=== PATIENT | female | born 1975 | race Caucasian/White ===

== ENCOUNTER → 2018-01-13 14:22 | Outpatient (CLI) | payer BC, MEDICAID, SELFPAY ==
[2018-01-13 14:54] LABS: Basophils % 0.6 % (0.1-2.0); Eosinophils # 0.1 K/mm3 (0.0-0.4); Eosinophils % 1.6 % (0.1-12.0); Hematocrit 41.1 % (37.0-47.0); Hemoglobin 13.1 g/dL (12.2-16.2); Lymphocytes # 2.9 K/mm3 (0.7-4.5); Lymphocytes % 37.5 K/mm3 (10-50); Mean Corpuscular HGB Conc 31.8 g/dL (31.8-35.4); Mean Corpuscular Hemoglobin 27.8 pg (27.0-31.2); Mean Corpuscular Volume 87.4 fl (81-99); Mean Platelet Volume 7.7 fl (7.4-10.4); Monocytes # 0.4 K/mm3 (0.1-1.0); Monocytes % 5.3 % (1.7-9.3); Neutrophils # 4.2 K/mm3 (1.8-7.8); Neutrophils % 54.9 % (37.0-80.0); Platelet Count 350 K/mm3 (142-424); Red Cell Distribution Width 13.7 % (11.5-17.5); White Blood Count 7.6 K/mm3 (4.8-10.8)
[2018-01-13 16:10] LABS: Anion Gap 11.3 mEq/L (5-15); Blood Urea Nitrogen 10 mg/dL (7-18); Carbon Dioxide 29 mmol/L (21.0-32.0); Chloride 102 mmol/L (98-107); Creatinine,Serum 0.89 mg/dL (0.55-1.02); Estimated Glomerular Filt Rate 69 ml/min (>60); Free Thyroxine Index 2.9 ug/dL (5.93-13.13); GFR (African American) 83 ML/MIN (>60); Glucose 76 mg/dL (74-106); Potassium 4.3 mmoL/L (3.5-5.1); Sodium 138 mmol/L (136-145); T4 (Thyroxine) 9.1 ug/dl (4.7-13.3); Thyroid Stimulating Hormone 2.51 uIU/ml (0.358-3.740); Triiodothryronine (T3) Uptake 32 % (31-39)
== END ==
PROVIDERS: Family Provider Family Medicine; PCP Family Medicine; Visit Provider Nurse Practitioner Obstetrics & Gynecology
DX: R53.83 Other fatigue (principal)
CPT/HCPCS: 36415; 80048; 84436; 84443; 84479; 85025

== ENCOUNTER → 2018-01-21 12:37 | Outpatient (CLI) | payer MEDICAID, SELFPAY ==
--- NOTE | 2018-01-21 12:44 | MM_ITS ---
MM Dig mamm DX unilat RT CAD, US breast RT complete COMPARISON: 10/22/2017 mammogram and ultrasound INDICATION: Follow-up abnormal mammogram ORDERING PHYSICIAN: Ashu Kent MD PATIENT AGE: 42 years TECHNIQUE: Standard images performed along with spot compression views, rolled views, and right breast ultrasound. There are 2 markers placed in the right breast one centrally and superiorly and one medially and superiorly . FINDINGS: On the cc view there are 2 persistent nodular opacities in the right breast 1 centrally at 4 mm approximately 8 cm deep to the nipple and 1 slightly medial at 6 mm approximate 8 centimeters deep to the nipple. These are not significantly changed and only seen on the cc view and not on the breast ultrasound. These have a probably benign appearance. Continued 6 month follow-up is recommended Right breast ultrasound: No masses. No solid or cystic lesions apparent. Specifically, ultrasound performed of the palpable abnormality showing no sonographic abnormality. IMPRESSION: Probably benign findings. No convincing evidence of malignancy with no significant change BI-RADS Category: 3 Benign Finding Short Term Follow-up RECOMMENDED FOLLOW-UP: 6M - 6 MONTH FOLLOW-UP Negative ultrasound negative mammogram does not exclude the possibility of malignancy. Any palpable nodule should be managed on clinical basis. (A letter has been sent to the patient regarding results of the study.)
== END ==
PROVIDERS: Family Provider Family Medicine; PCP Family Medicine; Visit Provider Family Medicine
DX: R92.8 Other abnormal and inconclusive findings on diagnostic imaging of breast (principal)
CPT/HCPCS: 76641; 77065

== ENCOUNTER → 2018-01-23 12:49 | Outpatient (CLI) | payer MEDICAID, SELFPAY ==
--- NOTE | 2018-01-23 12:51 | US_ITS ---
US transvaginal Ordering Physician: Gerson Choudhury MD Patient Age: 42 years: Female HISTORY: ITS.REASON: dyspareunia, pelvic paindyspareunia area TECHNIQUE: Pelvic pain transvaginal pelvic ultrasound bh COMPARISON :No previous relevant studies for comparison there is a CT abdomen pelvis from 2012 available and utilized. FINDINGS The uterus. Measures 8.8 seem in length as 5.1 cm x 7.3 cm wide. A generous appearance of the uterus. A question possible fibroid anterior myometrium, a submucosal. Endometrial stripe measures 9.2 mm-slightly thickened, slightly generous. Right ovary: A difficult to visualize and is seen with transabdominal and imaging 2.6 x 2.6 and 2.5 cm.. Left ovary. Not seen . No fluid in cul-de-sac. =====IMPRESSION========= Previous CT from 2012 shows generous peripheral to the uterus and moderate endometrial stripe is well. IMPRESSION generous volume uterus. Generous girth uterus. Question possible fibroid anterior myometrium 2.3 seem in length x 1.2 cm.. Submucosal. . slightly generous, slightly thickened endometrial stripe measuring up to 9 mm AP
== END ==
PROVIDERS: Family Provider Family Medicine; PCP Family Medicine; Visit Provider Nurse Practitioner Obstetrics & Gynecology
DX: R10.2 Pelvic and perineal pain (principal)
CPT/HCPCS: 76830; 76856

== ENCOUNTER → 2021-09-21 07:39 | Outpatient (CLI) | payer OTHER, SELFPAY ==
--- NOTE | 2021-09-21 07:41 | CA_ITS ---
APPROVED REPORT Seamless Hosiery Knitter: Anel Nevarez RVT Study Quality: Good Indications: htn Risk Factors Hypertension Obesity Smoking Renal Artery Doppler Origin (R) 151.7/ cm/sec Proximal (R) 161.8/ cm/sec Mid (R) 187.8/ cm/sec Distal (R) 183.5/ cm/sec Renal Aorta Ratio (R) 1.44 Segmental A. (R) 38.1/13.5 cm/sec RI: 0.64 Segmental A. Sup (R) 30.7/12.7 cm/sec Segmental A. Mid (R) 38.1/13.5 cm/sec Segmental A. Inf (R) 29.2/8.2 cm/sec Origin (L) 109.8/ cm/sec Proximal (L) 108.4/ cm/sec Mid (L) 167.5/ cm/sec Distal (L) 223.9/ cm/sec Renal Aorta Ratio (L) 1.72 Segmental A. (L) 61.5/25.2 cm/sec RI: 0.59 Segmental A. Sup (L) 51.3/16.8 cm/sec Segmental A. Mid (L) 61.5/25.2 cm/sec Segmental A. Inf (L) 38.2/14.9 cm/sec Renal Measurements Kidney Size (R) 12.3x8.6 cm Cortical Thickness (R) 2.0 cm Kidney Size (L) 11.8x7.1 cm Cortical Thickness (L) 1.8 cm Findings Study suggests less than 60% stenosis of the bilateral renal arteries. Left non-obstructing nephrolithiasis. Conclusion Study suggests less than 60% stenosis of the bilateral renal arteries. Left non-obstructing nephrolithiasis. Electronically signed by : Meet Charles MD 09/21/2021 15:35:52
[2021-09-21 08:46] LABS: Basophils # 0.1 K/mm3 (0-0.2); Eosinophils # 0.1 K/mm3 (0.0-0.4); Eosinophils % 1.5 % (0.1-12.0); Hematocrit 51.8 % (37.0-47.0); Hemoglobin 16.4 g/dL (12.2-16.2); Lymphocytes # 2.4 K/mm3 (0.7-4.5); Lymphocytes % 27.3 % (10-50); Mean Corpuscular HGB Conc 31.7 g/dL (31.8-35.4); Mean Corpuscular Hemoglobin 30.5 pg (27.0-31.2); Mean Corpuscular Volume 96.3 fl (81-99); Mean Platelet Volume 8.2 fl (7.4-10.4); Monocytes # 0.4 K/mm3 (0.1-1.0); Monocytes % 4.9 % (1.7-9.3); Neutrophils # 5.7 K/mm3 (1.8-7.8); Neutrophils % 65.3 % (37.0-80.0); Platelet Count 355 K/mm3 (142-424); Red Blood Count 5.38 M/mm3 (4.20-5.40); White Blood Count 8.7 K/mm3 (4.8-10.8)
[2021-09-21 09:27] LABS: Chloride 101 mmol/L (98-107); Potassium 4.6 mmoL/L (3.5-5.1); Sodium 140 mmol/L (136-145)
[2021-09-21 09:29] LABS: Bilirubin,Unconjugated 0.4 mg/dL (0.0-1.1); Blood Urea Nitrogen 16 mg/dl (7-17); Estimated Glomerular Filt Rate 77 ml/min (>60); GFR (African American) 93 ML/MIN (>60)
[2021-09-21 09:30] LABS: Alanine Aminotransferase 39 U/L (12-78); Albumin Level 4.1 g/dl (3.5-5.0); Alkaline Phosphatase 57 U/L (38-126); Anion Gap 12.6 mEq/L (5-15); Aspartate Amino Transferase 31 U/L (14-36); Bilirubin,Direct 0.4 mg/dl (0.0-0.4); Bilirubin,Indirect 0.4 mg/dL (0.0-0.9); Bilirubin,Total 0.8 mg/dl (0.2-1.3); Calcium 9.6 mg/dl (8.4-10.2); Carbon Dioxide 31 mmol/L (22.0-30.0); Chol/HDL Ratio 4.4 (1-3.5); Cholesterol 191 mg/dl (140-200); Glucose 126 mg/dl (74-100); HDL Cholesterol 43 mg/dl (40-60); Total Protein,Serum 6.7 g/dl (6.3-8.2); Triglycerides 191 mg/dl (30-150); VLDL Cholesterol 38 mg/dL (0-40)
[2021-09-21 09:41] LABS: Direct LDL Cholesterol 125.92 mg/dL (100-129)
[2021-09-21 09:47] LABS: Free T4 (Free Thyroxine) 1.06 ng/dl (0.78-2.19)
[2021-09-21 10:01] LABS: Thyroid Stimulating Hormone 3.48 uIU/mL (0.465-4.68)
== END ==
PROVIDERS: Visit Provider Nurse Practitioner Family
DX: R07.9 Chest pain, unspecified (principal); R06.00 Dyspnea, unspecified; R42 Dizziness and giddiness; I20.8 Other forms of angina pectoris; I10 Essential (primary) hypertension; R53.83 Other fatigue; R06.83 Snoring; R40.0 Somnolence; R60.0 Localized edema; R94.31 Abnormal electrocardiogram [ECG] [EKG]; E66.9 Obesity, unspecified; Z68.42 Body mass index [BMI] 45.0-49.9, adult
CPT/HCPCS: 36415; 80048; 80061; 80076; 84439; 84443; 85025; 93976

== ENCOUNTER → 2021-09-24 07:20 | Outpatient (CLI) | payer OTHER, SELFPAY ==
--- NOTE | 2021-09-24 | CA_ITS ---
APPROVED REPORT Exam: Pharmacologic Technologist: malcolm arevalo, Ht: 5 ft 2 in Wt: 255 lbs BSA: 2.12 m2 Indications: SOA, CP Medical History Medications: Omeprazole,,,,, Metoprolol,,,,, Albuterol,,,,, Lisinopri/HCTZ,,,,, Mirena,,,,, OxYbutynyn,,,,, Allergies: PCN, Peppeer, Oxycodone Cardiac Risk Factors: HTN, Smoking Stress Test Details Test: LEXISCAN HR Resting HR: 84 bpm Max Heart Rate (APMHR): 172.951859 bpm Max HR Achieved: 110 bpm Target HR (85% APMHR): 146.946825 bpm % of APMHR: 63.95 Recovery HR: 90 bpm BP Resting BP: 149/87 mmHg Max BP: 149/87 mmHg Recovery BP: 138.0/76.0 mmHg ECG Resting ECG: Sinus Rhythm Clinical Exercise duration: 04:13 min Highest Stage Achieved: Exercise capacity: 1.0 METs Stress ECG Conclusion Lexiscan portion completed. Patient no complaints of chest pain. Shortness of breath at peak infusion which resolved during recovery. Occasional PVC. Less than 1.5mm ST depression. Images to follow. Electronically signed by : Damion Sanches MD 09/25/2021 06:50:40
--- NOTE | 2021-09-24 07:22 | NM_ITS ---
APPROVED REPORT Exam: Nuclear Stress Test Indication: Chest pain, SOB, Palpitations, Fatigue, HTN, Tobacco use, Family history, Dizziness Patient Location: Outpatient Stress Tech: Apurva Knight PA Tech:Katt Jett, ARRT, RT (R)(N) Ht: 5 ft 2 in Wt: 255 lbs Bra Size: 42C HR: 82 bpm BP: 149/87 mmHg BSA: 2.12 m2 BMI: 46.6 History: Chest pain, SOB, Palpitations, Fatigue, HTN, Tobacco use, Family history, Dizziness Procedure: Patient received a 0.4 mg of intravenous Lexiscan, resting heart rate 82 bpm, resting blood pressure 149/87 mmHg, with Lexiscan maximum heart rate achived was 100 bpm which is Less than 85 % of the maximum predicted heart rate and blood pressure was 129/79 mmHg. With Lexiscan, patient denied any complaint of chest pain. Electrocardiogram Resting electrocardiogram shows sinus rhythm, with Lexiscan there is less than 1.[address] segment depression noted from the baseline EKG. The EKG portion of the Lexiscan is nondiagnostic. Cardiac Stress and Resting SPECT Images: Cardiac Stress and Resting SPECT images were obtained using technetium 99m Myoview 30.7 mCi stress and 10.44 mCi at rest. Gated SPECT for analysis of segmental wall motion and calculation of ejection fraction also done. Prone images were also obtained. Cardiac stress and rest SPECT images show uniform myocardial activity without segmental perfusion abnormality, computer derived ejection fraction is 54% with no regional wall motion abnormality, right ventricle is normal size and contractility. Conclusion: 1. The EKG portion of the Lexiscan is nondiagnostic. 2. No scintigraphic evidence of reversible ischemia seen, computer derived ejection fraction is 54% with no regional wall motion abnormality, right ventricle is normal size and contractility. 3. Normal Lexiscan Myoview study. Electronically signed by : Damion Sanches MD 09/25/2021 06:57:32
--- NOTE | 2021-09-24 07:49 | CA_ITS ---
APPROVED REPORT EXAM: Comprehensive 2D, Doppler, and color-flow Echocardiogram Motorcoach Driver: TRISTEN Jimenez, RVS Ht: 5 ft 2 in Wt: 255lbs BSA: 2.12 BP: 157/93 mmHg Indications: CP, Smoker, HTN, COPD, Edema, Obesity, Fatigue Echo Enhancing Agent Comments: Poor Acoustic windows throughout exam due to Large body habitus with lung impedence 2D Dimensions Aortic Root 2.51 cm LA Volume 31.90 mL Left Atrium 3.43 cm LA Volume Index 15.529252 mL/m2 (M/F) 16-34 LVOT 2.16 cm (M/F) 1.5-2.5 M-Mode Dimensions RVDd 2.63 cm (0.9-2.6) LA Diam 3.93 cm (1.9-4.0) LVDd 4.61 cm (3.5-5.7) Ao Diam 3.05 cm (2.0-3.7) LVDs 2.59 cm (3.5-5.7) IVSd 1.18 cm (0.6-1.1) PWd 0.95 cm (0.6-1.1) EF (Teich) 75.10% EPSs 1.52 cm FS 43.80% EDV (Teich) 97.80 mL TAPSE 1.79 (<1.7) ESV (Teich) 24.40 mL LV Diastology E Decel Time 213.00 (160-240 msec) E/A Ratio 0.87 MED E' 6.20 (< 7 cm/sec) MED A' 9.80 cm/s E'/MED E' Ratio 14.68 (>14) LAT E' 6.60 (<10 cm/sec) LAT A' 8.10 cm/s E/LAT E' Ratio 13.79 (>14) Aortic Valve LVOT Max 103.00 (70-110 cm/s) LVOT VTI 20.33 cm AoV Peak Carlos. 145.00 (50-130 cm/s) AI PHT 401.00 ms AO Peak GR. 8.40 mmHg AO Mean GR. 4.10 (<5 mmHg) AO VTI 26.78 (18-25 cm) JOHN (VTI) 2.78 (2.5-4.5 cm2) Mitral Valve MV A Velocity 105.00 (40-130 cm/s) E/A Ratio 0.87 MV Decel. Time 213.00 (160-240 ms) Tricuspid Valve TR P. Velocity 139.00 cm/s RAP Estimate 10.00 mmHg RVSP 17.80 mmHg Left Ventricle Left atrium is mildly enlarged, left ventricle is normal size, mild concentric left ventricular hypertrophy, visually estimated ejection fraction 55% with no regional wall motion abnormality, grade 1 diastolic dysfunction seen without tissue Doppler evidence of raise left atrial pressure. Right Ventricle Right atrium and right ventricle are normal size and contractility. Aortic Valve Aortic valve is minimally thickened and fibrosed, there is no aortic stenosis or aortic insufficiency. Mitral Valve Mitral valve grossly normal, there is trace mitral regurgitation. Tricuspid Valve Tricuspid valve grossly normal, there is trace tricuspid regurgitation, tricuspid regurgitation jet velocity is inadequate for calculation of the right ventricular systolic pressure. Pulmonic Valve Pulmonic valve is poorly visualized. Great Vessels Aortic root is normal size. Inferior vena cava is normal size with normal inspiratory collapse. Pericardium No significant pericardial effusion noted. Conclusion 1. Mildly enlarged left atrium, normal left ventricular size, mild concentric left ventricular hypertrophy, visually estimated ejection fraction 55% with no regional wall motion abnormality, grade 1 diastolic dysfunction seen without tissue Doppler evidence of raise left atrial pressure. 2. Trace mitral and tricuspid regurgitation. 3. No significant pericardial effusion Electronically signed by : Damion Sanches MD 09/25/2021 06:13:38
--- NOTE | 2021-09-24 08:42 | HMH.ITSHM ---
Current Home Medications as stated by this patient Dayna Ulloa or c s s representative. []OXYBUTYNIN OMEPRAZOLE METOPROLOL LISINOPRIL LEVONORGESTREL ALBUTEROL
== END ==
PROVIDERS: PCP Family Medicine; Visit Provider Nurse Practitioner Family
DX: R06.00 Dyspnea, unspecified (principal); R07.9 Chest pain, unspecified; I20.8 Other forms of angina pectoris; R42 Dizziness and giddiness; R94.31 Abnormal electrocardiogram [ECG] [EKG]; R60.0 Localized edema; I10 Essential (primary) hypertension; E66.9 Obesity, unspecified; R06.83 Snoring; R40.0 Somnolence; R53.83 Other fatigue; Z68.42 Body mass index [BMI] 45.0-49.9, adult
CPT/HCPCS: 78452; 93017; 93306; A9502; J2785

== ENCOUNTER → 2021-10-09 10:14 | Outpatient (CLI) | payer OTHER, SELFPAY ==
--- NOTE | 2021-10-09 10:14 | CT_ITS ---
PROCEDURE: CT ANGIO CHEST PE PROTOCOL CLINCIAL INDICATION: sob COMPARISON: No exams were available for comparison TECHNIQUE: IV Contrast: 70ML Isovue 370 Axial images obtained with sagittal and coronal reformats. All CT scans at the facility use one or more dose reduction, viz: automated exposure control, ma/kV adjustment per patient size (including targeted exams where dose is matched to indication, i.e. head), or iterative reconstruction technique. FINDINGS: HEART AND MEDIASTINAL STRUCTURES: No evidence of pulmonary embolus, aortic aneurysm, or aortic dissection. There are few scattered small mediastinal lymph nodes. The coronary artery calcifications and/or stents noted. There is mild ectasia of the ascending thoracic aorta at 3.6 cm. LUNGS AND PLEURAL SPACES: 4 mm noncalcified nodule right middle lobe. No lobar consolidation or collapse. No effusions. BONY STRUCTURES: Degenerative changes thoracic spine. UPPER ABDOMEN: Mild hepatomegaly measuring up to 24 cm in AP dimension. Gallbladder appears slightly distended. Mild prominence of the adrenal glands maintaining an adrenal form shape. ADDITIONAL FINDINGS: No other significant abnormalities. IMPRESSION: No acute finding. No evidence of pulmonary embolus. Nonacute findings as detailed above Dictated by: Meet Charles MD 10/10/2021 12:17 Meet Charles MD in [place] 10/10/2021 12:17
== END ==
PROVIDERS: Visit Provider Nurse Practitioner Family
DX: R06.00 Dyspnea, unspecified (principal); G47.33 Obstructive sleep apnea (adult) (pediatric); R42 Dizziness and giddiness; R06.83 Snoring; R40.0 Somnolence; R53.83 Other fatigue; R60.0 Localized edema
CPT/HCPCS: 71275; 95806; Q9967

== ENCOUNTER → 2021-10-30 09:11 | Outpatient (CLI) | payer OTHER, SELFPAY ==
--- NOTE | 2021-10-30 09:14 | US_ITS ---
PROCEDURE: US THYROID CLINICAL INDICATION: choking on food, voice changes. COMPARISON: No exams were available for comparison FINDINGS: Right lobe: 3.8 x 1.1 x 1.4 cm Left lobe: 3.8 x 1.7 x 3.8 cm Isthmus: 0.5 cm Additional findings: No nodules identified. Homogeneous thyroid echogenicity. IMPRESSION: Minimal prominence of the isthmus. No nodules apparent, otherwise unremarkable thyroid ultrasound Dictated by: Meet Charles MD 10/30/2021 17:36 Meet Charles MD in [place] 10/30/2021 17:36
== END ==
PROVIDERS: PCP Physician Assistant; Visit Provider Physician Assistant
DX: R06.02 Shortness of breath (principal); R49.9 Unspecified voice and resonance disorder; R13.10 Dysphagia, unspecified; I20.8 Other forms of angina pectoris; I10 Essential (primary) hypertension; R60.0 Localized edema; E66.01 Morbid (severe) obesity due to excess calories; G47.33 Obstructive sleep apnea (adult) (pediatric); R94.31 Abnormal electrocardiogram [ECG] [EKG]; Z82.49 Family history of ischemic heart disease and other diseases of the circulatory system; Z68.42 Body mass index [BMI] 45.0-49.9, adult
CPT/HCPCS: 76536

== ENCOUNTER → 2021-11-12 08:44 | Outpatient (CLI) | payer OTHER, SELFPAY ==
[2021-11-12 09:03] LABS: Basophils # 0.1 K/mm3 (0-0.2); Basophils % 1.2 % (0.1-2.0); Eosinophils # 0.2 K/mm3 (0.0-0.4); Eosinophils % 1.9 % (0.1-12.0); Hematocrit 49.9 % (37.0-47.0); Hemoglobin 16.3 g/dL (12.2-16.2); Lymphocytes % 36.2 % (10-50); Mean Corpuscular HGB Conc 32.6 g/dL (31.8-35.4); Mean Corpuscular Hemoglobin 30.7 pg (27.0-31.2); Mean Corpuscular Volume 94.2 fl (81-99); Mean Platelet Volume 8.2 fl (7.4-10.4); Monocytes # 0.5 K/mm3 (0.1-1.0); Monocytes % 6.1 % (1.7-9.3); Neutrophils # 4.6 K/mm3 (1.8-7.8); Neutrophils % 54.6 % (37.0-80.0); Platelet Count 375 K/mm3 (142-424); Red Cell Distribution Width 13.2 % (11.5-17.5); White Blood Count 8.4 K/mm3 (4.8-10.8)
[2021-11-12 09:52] LABS: Chloride 100 mmol/L (98-107); Potassium 4.4 mmoL/L (3.5-5.1); Sodium 138 mmol/L (136-145)
[2021-11-12 09:55] LABS: Anion Gap 12.4 mEq/L (5-15); Blood Urea Nitrogen 14 mg/dl (7-17); Calcium 9.3 mg/dl (8.4-10.2); Carbon Dioxide 30 mmol/L (22.0-30.0); Estimated Glomerular Filt Rate 77 ml/min (>60); GFR (African American) 93 ML/MIN (>60); Glucose 135 mg/dl (74-100)
== END ==
PROVIDERS: Visit Provider Physician Assistant
DX: Z01.812 Encounter for preprocedural laboratory examination (principal); U07.1 COVID-19; I20.8 Other forms of angina pectoris; I10 Essential (primary) hypertension; R06.00 Dyspnea, unspecified; R60.0 Localized edema; R94.31 Abnormal electrocardiogram [ECG] [EKG]; Z82.49 Family history of ischemic heart disease and other diseases of the circulatory system
CPT/HCPCS: 36415; 80048; 85025; C9803; U0003; U0005

== ENCOUNTER 2021-11-22 08:30 | Day surgery (SDC) | payer OTHER, SELFPAY ==
[2021-11-22] VITALS (14 sets, daily range): BP systolic 109–145; BP diastolic 56–85; PULSE 72–85; RESP 16–20; TEMP 36.9; O2SAT 93–98; BMI 46.6
--- NOTE | 2021-11-22 07:12 | IR_ITS ---
" APPROVED REPORT Patient Location: Outpatient Pharmacist Aide: ABIOLA Ramos RT (R) PROCEDURES Left heart catheterization Left ventriculogram Selective coronary angiogram Drug-eluting stent deployment to the proximal mid dominant right coronary INDICATION Coronary artery disease, Angina pectoris, High risk ulcerated necrotic plaque within the mid dominant right coronary, Informed consent was obtained prior to the procedure. COMPLICATIONS None Estimated Blood Loss: Less than 10 mls TECHNIQUE One percent lidocaine used to anesthetize the right anterior aspect of the wrist. The right radial artery was accessed via the Seldinger technique. A 6 Arabic sheath was placed in the right radial artery. 2.5 mg of verapamil, 800 mcg of nitroglycerin, 1mg Lidocaine and 5000 U Heparin were given through the arterial sheath. The [employer] catheter was also used to perform left heart catheterization, left ventriculogram and selective coronary angiogram. At the end of the diagnostic angiogram therapeutic heparin was administered giving a therapeutic ACT and the guide catheter was left in the right coronary artery where a Choice PT extra-support wire was placed distally. A 3.5 x 38 mm resolute Martinez stent was deployed at 20 bobo reducing the high risk ulcerated necrotic plaque to 0%. ZAIRA-3 flow was present before and after the procedure. At the end of the procedure the apparatus was removed the sheath was removed good hemostasis was achieved using TR banding patient was transferred to the postop putting in stable condition ANGIOGRAPHIC RESULTS The left main artery Normal The left anterior descending artery Has mild proximal 20% calcification The circumflex artery Is nondominant has a proximal smooth 30 to 40% eccentric stenosis The right coronary artery Is a dominant vessel with diffuse proximal and mid vessel 30% stenoses. Within the mid segment is a large ulcerated necrotic plaque within the stenotic area of approximately 70% The BOLTON ventriculogram reveals Normal 65% The left ventricular end-diastolic pressure 20 mmHg IMPRESSION High risk unstable necrotic ulcerated plaque within the mid dominant right coronary artery Successful stenting of the proximal to mid right coronary artery high risk disease reduced to 0% with 1 drug-eluting stent Normal ejection fraction Elevated LVEDP PLAN 1. Brilinta 90 twice daily plus aspirin 81 mg daily 2. LDL less than 55 to be achieved with high intensity statin 3. Better control of diabetes 4. Risk factor modification 5. Exercise weight loss 6. Immediate avoidance of all tobacco products 7. Cardiac rehabilitation Electronically signed by : Rufino Elizabeth MD 11/22/2021 11:04:23"
[2021-11-22 09:18] LABS: MANUAL DIFFERENTIAL MANUAL DIFFERENTIAL (MANUAL DIFF)
[2021-11-22 09:20] LABS: Coronavirus 19, PCR Not Detected (NotDetected); Influenza A, PCR Not Detected (NotDetected); Influenza B, PCR Not Detected (NotDetected)
[2021-11-22 09:20] LABS: Basophils # 0.1 K/mm3 (0-0.2); Basophils % 1.3 % (0.1-2.0); Eosinophils # 0.3 K/mm3 (0.0-0.4); Eosinophils % 2.3 % (0.1-12.0); Hematocrit 50.1 % (37.0-47.0); Hemoglobin 16.2 g/dL (12.2-16.2); Lymphocytes # 2.4 K/mm3 (0.7-4.5); Lymphocytes % 22.2 % (10-50); Mean Corpuscular HGB Conc 32.4 g/dL (31.8-35.4); Mean Corpuscular Hemoglobin 30.8 pg (27.0-31.2); Mean Corpuscular Volume 95.2 fl (81-99); Mean Platelet Volume 8.2 fl (7.4-10.4); Monocytes # 0.6 K/mm3 (0.1-1.0); Monocytes % 5.5 % (1.7-9.3); Neutrophils # 7.5 K/mm3 (1.8-7.8); Neutrophils % 68.7 % (37.0-80.0); Platelet Count 413 K/mm3 (142-424); Red Blood Count 5.27 M/mm3 (4.20-5.40); Red Cell Distribution Width 13.2 % (11.5-17.5); White Blood Count 10.9 K/mm3 (4.8-10.8)
[2021-11-22 09:33] LABS: Anion Gap 10.9 mEq/L (5-15); Blood Urea Nitrogen 12 mg/dl (7-17); Calcium 9.3 mg/dl (8.4-10.2); Carbon Dioxide 27 mmol/L (22.0-30.0); Chloride 100 mmol/L (98-107); Creatinine Clearance Estimated 60 mL/min (50-200); Estimated Glomerular Filt Rate 67 ml/min (>60); GFR (African American) 81 ML/MIN (>60); Glucose 141 mg/dl (74-100); Potassium 3.9 mmoL/L (3.5-5.1); Sodium 134 mmol/L (136-145)
[2021-11-22 09:49] LABS: HCG Qualitative, Serum Negative (Negative)
[2021-11-22 10:06] LABS: Eosinophils % 1 % (0-3); Lymphocytes % 30 % (10-50); Monocytes % 3 % (2-9); Neutrophils % 66 % (42-76); Platelet Estimate Normal; Total Cells Counted 100
[2021-11-22 10:07] LABS: RBC Morphology Normal
--- NOTE | 2021-11-22 14:34 | HMH.PHACLD ---
Dayna Ulloa has received discharge medication counseling on the following medications: PATIENT IS CURRENTLY TAKING ATORVASTATIN 40 MG DAILY, LISINOPRIL HCTZ 20/25 MG DAILY, ASPIRIN DR 81 MG DAILY, AND METOPROLOL SUCCINATE 50 MG BID. STARTING BRILINTA 90 MG BID.
[2021-11-22 14:39] LABS: CATHL Activated Clotting Time 290 SEC (74-125)
== END 2021-11-22 14:30 ==
LOC: CATHLAB 08:31
PROVIDERS: Visit Provider Internal Medicine
DX: R07.9 Chest pain, unspecified (principal); E66.01 Morbid (severe) obesity due to excess calories; G47.33 Obstructive sleep apnea (adult) (pediatric); I10 Essential (primary) hypertension; I25.110 Atherosclerotic heart disease of native coronary artery with unstable angina pectoris; R94.31 Abnormal electrocardiogram [ECG] [EKG]; Z82.49 Family history of ischemic heart disease and other diseases of the circulatory system; Z68.42 Body mass index [BMI] 45.0-49.9, adult; F17.210 Nicotine dependence, cigarettes, uncomplicated
CPT/HCPCS: 80048; 84703; 85007; 85014; 85018; 85048; 85049; 85347; 92928; 93458; 99152; C1725; C1760; C1769; C1876; C9600; C9803; J1644; Q9967; U0003; U0005

== ENCOUNTER → 2021-11-26 12:34 | Outpatient (CLI) | payer OTHER, SELFPAY ==
--- NOTE | 2021-11-26 12:34 | FL_ITS ---
FINAL REPORT CLINICAL HISTORY: dysphagia; modified barium swallow FINDINGS: MODIFIED BARIUM SWALLOW History: Dysphagia. FINDINGS: Fluoroscopy was provided for the speech pathologist to evaluate the swallowing mechanism. The patient was given several different consistencies of barium while the swallow was visualized fluoroscopically. The report of the speech pathologist should be consulted prior to making dietary decisions. FLUOROSCOPY TIME: 2 minutes 17 seconds. 14 fluoroscopic spot runs were obtained. IMPRESSION: Modified barium swallow under fluoroscopic guidance. Please see the report of the speech pathologist for more detail. Reviewed, Interpreted and Dictated by Davide Ca III, MD Transcribed by JYOTHI Velásquez Authenticated by Davide Ca III, MD on 11/28/2021 09:56:[address] [facility]
--- NOTE | 2021-11-26 13:53 | HMH.SLMBS2 ---
Speech & Language Evaluation Speech/Language Mod Barium Swallow Start: 11/26/21 13:39 Freq: once Status: Complete Protocol: Document 11/26/21 13:39 MAXWELL (Rec: 11/26/21 13:53 MAXWELL [id number]) General Information General Current Food Consistancy Regular,Thin Liquids Dentition Poor Dentition Oxygen Status Room Air Facial Symmetry Symmetrical Patient Orientation Person,Place,Time,Situation Ability to Follow Directions Excellent Communication Ability No Impairment MBS Recommendations Diet Dietary Recommendations Regular,Thin Liquids Treatment/Strategies Treatment Recommendation Compens. Strategy Educat. Strategy/Precaution Recommend Sitting Upright (90 deg),Small Bites and Sips Mod Barium Swallow Impressions Summary and Impressions Oral Phase Impression Minimal Impairment Oral Phase Summary minimal difficulty with mastication secondary to poor dentition. Pharyngeal Phase Impression No Impairment (WFL) Speech/Language MBS Assessment/Goals/Plan Assessment Date of Evaluation: 11/26/21 Evaluation Type Initial Certification Assessment/Problems Patient reports choking sensation for approximately one year. PMH includes Baer's Palsy and high blood pressure. . Does Patient Qualify for Service No Qualify/Failure Comment Baased on the results of today 's modified barium swallow study, pt does not qualify for skilled speech therapy services at this time. Recommendations PHYSICIAN CERTIFICATION: The specified therapy services are required, authorized, and reviewed every 30 days. Liquid Type Recommendations Normal/Thin Dysphagia Swallow Precautions/Strategies Sitting Upright (90 deg),Small Bites and Sips Place Food on Either side of Mouth Plan Pt/Guardian verbally ack understanding Yes of dx/prognosis/goals Pt/Guardian verbally ack understanding Yes of/consent to tx prog G -code Required No Education Instructions provided MBSS results discussed with patient, who indicated understanding. Pt/Caregiver able to recall information Unable to ind. understand Reinforcement needed No Mod Barium Swallow Setup Exam Setup Level of Consciousness Awake,Alert,Appropriate, Follows Commands Mod Barium Swallow-Lat View Textures Lateral View Food Presentation Thin Liquid via Cup,Thin
== END ==
PROVIDERS: Visit Provider Specialist
DX: R13.10 Dysphagia, unspecified (principal)
CPT/HCPCS: 70371; 92611

== ENCOUNTER → 2021-12-04 09:07 | Outpatient (CLI) | payer OTHER, SELFPAY ==
[2021-12-04 09:51] LABS: Basophils # 0.1 K/mm3 (0-0.2); Basophils % 1.2 % (0.1-2.0); Eosinophils # 0.3 K/mm3 (0.0-0.4); Eosinophils % 2.8 % (0.1-12.0); Hemoglobin 15.8 g/dL (12.2-16.2); Lymphocytes # 3.1 K/mm3 (0.7-4.5); Lymphocytes % 27.7 % (10-50); Mean Corpuscular HGB Conc 31.6 g/dL (31.8-35.4); Mean Corpuscular Hemoglobin 30.7 pg (27.0-31.2); Mean Corpuscular Volume 97.4 fl (81-99); Mean Platelet Volume 8.2 fl (7.4-10.4); Monocytes # 0.5 K/mm3 (0.1-1.0); Monocytes % 4.8 % (1.7-9.3); Neutrophils # 7.1 K/mm3 (1.8-7.8); Neutrophils % 63.5 % (37.0-80.0); Platelet Count 373 K/mm3 (142-424); Red Blood Count 5.13 M/mm3 (4.20-5.40); Red Cell Distribution Width 13.4 % (11.5-17.5); White Blood Count 11.2 K/mm3 (4.8-10.8)
[2021-12-04 10:00] LABS: Anion Gap 9.3 mEq/L (5-15); Blood Urea Nitrogen 16 mg/dl (7-17); Calcium 9.7 mg/dl (8.4-10.2); Carbon Dioxide 30 mmol/L (22.0-30.0); Chloride 100 mmol/L (98-107); Estimated Glomerular Filt Rate 67 ml/min (>60); GFR (African American) 81 ML/MIN (>60); Glucose 173 mg/dl (74-100); Potassium 4.3 mmoL/L (3.5-5.1); Sodium 135 mmol/L (136-145)
--- NOTE | 2021-12-04 10:07 | CA_ITS ---
FINAL REPORT CLINICAL HISTORY: .RT WRIST/FOREARM PAIN, S/P HEART CATH 11/22,R/O PSEUDO FINDINGS: DUPLEX SCAN UPPER EXTREMITY ARTERIES Doppler images of the right wrist were obtained. There is no evidence of pseudoaneurysm or AV fistula. There was no hematoma. IMPRESSION: No evidence of pseudoaneurysm or AV fistula. Reviewed, Interpreted and Dictated by Davide Ca III, MD Transcribed by Agnes Vu Authenticated by Davide Ca III, MD on 12/04/2021 12:42:[address] [facility]
== END ==
PROVIDERS: Visit Provider Internal Medicine
DX: M25.531 Pain in right wrist (principal)
CPT/HCPCS: 36415; 80048; 85025; 93931

== ENCOUNTER → 2021-12-17 09:57 | Outpatient (CLI) | payer OTHER, SELFPAY ==
[2021-12-17 11:11] LABS: Anion Gap 11.2 mEq/L (5-15); Blood Urea Nitrogen 14 mg/dl (7-17); Calcium 9.8 mg/dl (8.4-10.2); Carbon Dioxide 30 mmol/L (22.0-30.0); Chloride 102 mmol/L (98-107); Estimated Glomerular Filt Rate 77 ml/min (>60); GFR (African American) 93 ML/MIN (>60); Glucose 258 mg/dl (74-100); Potassium 4.2 mmoL/L (3.5-5.1); Sodium 139 mmol/L (136-145)
== END ==
PROVIDERS: Visit Provider Nurse Practitioner Family
DX: I25.110 Atherosclerotic heart disease of native coronary artery with unstable angina pectoris (principal); I10 Essential (primary) hypertension; R06.02 Shortness of breath; E66.01 Morbid (severe) obesity due to excess calories; M79.601 Pain in right arm; R94.31 Abnormal electrocardiogram [ECG] [EKG]; Z68.42 Body mass index [BMI] 45.0-49.9, adult
CPT/HCPCS: 36415; 80048

== ENCOUNTER → 2022-04-18 09:32 | Outpatient (CLI) | payer OTHER, SELFPAY ==
[2022-04-18 10:39] VITALS: BP 138/90; BP 150/75; PULSE 80; PULSE 81; PULSE 83; RESP 18; RESP 20; O2SAT 97; O2SAT 98
== END ==
PROVIDERS: PCP Family Medicine; Visit Provider Internal Medicine Pulmonary Disease
DX: R06.00 Dyspnea, unspecified (principal)
CPT/HCPCS: 94060; 94618; 94640; 94726; 94729

== ENCOUNTER → 2022-04-25 16:02 | Outpatient (CLI) | payer OTHER, SELFPAY ==
[2022-04-25 17:31] LABS: Basophils # 0.1 K/mm3 (0-0.2); Basophils % 1.6 % (0.1-2.0); Eosinophils # 0.1 K/mm3 (0.0-0.4); Eosinophils % 1.6 % (0.1-12.0); Hematocrit 46.7 % (37.0-47.0); Hemoglobin 15.8 g/dL (12.2-16.2); Lymphocytes # 2.7 K/mm3 (0.7-4.5); Lymphocytes % 30.8 % (10-50); Mean Corpuscular HGB Conc 33.8 g/dL (31.8-35.4); Mean Corpuscular Hemoglobin 31.7 pg (27.0-31.2); Mean Corpuscular Volume 93.9 fl (81-99); Mean Platelet Volume 8.5 fl (7.4-10.4); Monocytes # 0.6 K/mm3 (0.1-1.0); Monocytes % 6.5 % (1.7-9.3); Neutrophils # 5.1 K/mm3 (1.8-7.8); Neutrophils % 59.6 % (37.0-80.0); Platelet Count 374 K/mm3 (142-424); Red Blood Count 4.97 M/mm3 (4.20-5.40); White Blood Count 8.6 K/mm3 (4.8-10.8)
[2022-05-03 23:23] LABS: D001-IgE D pteronyssinus 0.53 kU/L (Class I); D002-IgE D farinae 0.48 kU/L (Class I); E001-IgE Cat Dander <0.10 kU/L (Class 0); E005-IgE Dog Dander <0.10 kU/L (Class 0); E072-IgE Mouse Urine <0.10 kU/L (Class 0); G002-IgE Bermuda Grass 0.13 kU/L (Class 0/I); G006-IgE Timothy Grass <0.10 kU/L (Class 0); Immunoglobulin E, Total 380 IU/mL (6-495); M001-IgE Penicillium chrysogen <0.10 kU/L (Class 0); M002-IgE Cladosporium herbarum <0.10 kU/L (Class 0); M003-IgE Aspergillus fumigatus <0.10 kU/L (Class 0); M006-IgE Alternaria alternata <0.10 kU/L (Class 0); T001-IgE Maple/Box Elder <0.10 kU/L (Class 0); T003-IgE Common Silver Birch <0.10 kU/L (Class 0); T006-IgE Cedar, Mountain <0.10 kU/L (Class 0); T007-IgE Oak, White <0.10 kU/L (Class 0); T008-IgE Elm, American <0.10 kU/L (Class 0); T010-IgE Walnut <0.10 kU/L (Class 0); T011-IgE Maple Leaf Sycamore <0.10 kU/L (Class 0); T014-IgE Cottonwood <0.10 kU/L (Class 0); T015-IgE Ash, White <0.10 kU/L (Class 0); T022-IgE Pecan, Hickory <0.10 kU/L (Class 0); T070-IgE White Mulberry <0.10 kU/L (Class 0); W001-IgE Ragweed, Short <0.10 kU/L (Class 0); W011-IgE Thistle, Russian <0.10 kU/L (Class 0); W014-IgE Pigweed, Common <0.10 kU/L (Class 0); W018-IgE Sheep Sorrel <0.10 kU/L (Class 0)
== END ==
PROVIDERS: PCP Family Medicine; Visit Provider Internal Medicine Pulmonary Disease
DX: J45.909 Unspecified asthma, uncomplicated (principal); R06.09 Other forms of dyspnea
CPT/HCPCS: 36415; 82785; 85025; 86003

== ENCOUNTER → 2022-05-03 11:02 | Outpatient (CLI) | payer OTHER, SELFPAY ==
[2022-05-03 12:00] LABS: Alanine Aminotransferase 57 U/L (12-78); Albumin Level 3.7 g/dl (3.5-5.0); Alkaline Phosphatase 66 U/L (38-126); Aspartate Amino Transferase 56 U/L (14-36); Bilirubin,Indirect 0.6 mg/dL (0.0-0.9); Bilirubin,Total 0.6 mg/dl (0.2-1.3); Bilirubin,Unconjugated 0.9 mg/dL (0.0-1.1); Chol/HDL Ratio 4.9 (1-3.5); Cholesterol 173 mg/dl (140-200); HDL Cholesterol 35 mg/dl (40-60); Total Protein,Serum 6.3 g/dl (6.3-8.2); Triglycerides 206 mg/dl (30-150); VLDL Cholesterol 41 mg/dL (0-40)
[2022-05-03 12:11] LABS: Direct LDL Cholesterol 101.72 mg/dL (100-129)
== END ==
PROVIDERS: PCP Family Medicine; Visit Provider Nurse Practitioner
DX: R06.02 Shortness of breath (principal); R42 Dizziness and giddiness; R55 Syncope and collapse; I20.8 Other forms of angina pectoris; I10 Essential (primary) hypertension; R60.0 Localized edema; R94.31 Abnormal electrocardiogram [ECG] [EKG]; E66.01 Morbid (severe) obesity due to excess calories; Z68.42 Body mass index [BMI] 45.0-49.9, adult
CPT/HCPCS: 36415; 80061; 80076; 93270

== ENCOUNTER 2022-05-26 15:24 | Emergency (ER) | payer OTHER, SELFPAY ==
[2022-05-26 15:40] VITALS: BP 158/87; PULSE 88; RESP 24; TEMP 36.7; O2SAT 97; BMI 45.7
--- NOTE | 2022-05-26 16:18 | HMH.EDUTC ---
[facility] [place] Clinical Impression: Cervical strain, acute Qualifiers: Encounter type: initial encounter Qualified Code(s): S16.1XXA - Strain of muscle, fascia and tendon at neck level, initial encounter Disposition: Home, Self-Care Condition on Discharge: Good Instructions: DI for Cervical Muscle Strain Additional Instructions: start steroids tomorrow rest Ice with cold pack for 20 minutes remove may repeat for comfort every hour Tylenol every 4 hours as needed as long as her primary care has told he was okayed for you to take both. Follow-up immediately if new or worsening symptoms or no noticeable improvement over the next 3-5 days. follow up with pcp if no improvement may need more work up Prescriptions: predniSONE [Prednisone 20mg Tab] 20 mg PO BID #10 tab Transmission Status: Pending to [id number] Referrals: Jac Ha MD [Primary Care Provider] - Time of Disposition: 16:25 Medical Decision Making - Lance Inquiry Pt receiving controlled substance: No Vital Signs: 05/26/22 15:40 Temperature 98.1 F Temperature Source Oral Pulse Rate [Right Brachial] 88 Respiratory Rate 24 Blood Pressure [Right Arm] 158/87 H Blood Pressure Mean [Right Arm] 110 Blood Pressure Source [Right Arm] Automatic Cuff Blood Pressure Position [Right Arm] Sitting 02 Sat by Pulse Oximetry 97 Oxygen Delivery Method Room Air [facility] [place] - General Chief complaint: Urgent Treatment Center Stated complaint: neck pain Time Seen by Provider: 05/26/22 16:18 Mode of Arrival: Ambulatory Source of Information: Patient Limitations: No Limitations Description of Symptoms (Recalled from Triage Doc. by RN): PATIENT C/O PAIN TO NECK THAT RADIATES INTO LEFT SHOULDER AND DOWN LEFT ARM THAT STARTED YESTERDAY AND GOT WORSE TODAY. SHE STATES HER LEFT ELBOW FEELS NUMB AT TIMES. NO KNOWN INJURY HEENT Symptoms (Recalled from RN notes): No Resp Symptoms (Recalled from RN notes): No Skin Symptoms (Recalled from RN notes): No MS Symptoms (Recalled from RN notes): Yes Functional Status (Recalled from RN notes): WNL - History of Present Illness Provider Complaint: 46 yr old female presnets for left side neck pain that radiates down arm. pt states for a couple days she has had pain in the neck but woke up today with the pain worse and radiating down arm. no injury noted. pt does not want xrays at this time, denies fever - Related Data Home Medications Medication Instructions Recorded Confirmed levonorgestrel 20 mcg/24 hours (7 1 insert INTRAUTERI ONCE 02/03/18 04/30/22 yrs) 52 mg intrauterine device aspirin 81 mg tablet,delayed 81 mg PO DAILY 10/01/21 04/30/22 release Atorvastatin Calcium [Lipitor 40mg 40 mg PO DAILY 11/22/21 04/30/22 Tab] Omeprazole 40 mg PO DAILY 11/22/21 04/30/22 ticagrelor 90 mg tablet 90 mg PO BID 12/04/21 04/30/22 nicotine 21 mg/24 hr daily 1 patch TOPICAL DAILY each 02/07/22 04/30/22 transdermal patch Previous Rx's Medication Instructions Recorded nitroglycerin 0.4 mg sublingual 0.4 mg SUBLINGUAL Q5M PRN #20 tab 10/29/21 tablet furosemide 40 mg tablet 40 mg PO DAILY #30 tab 12/04/21 famotidine 20 mg tablet 40 mg PO DAILY #60 tab 12/05/21 fluticasone propionate 50 1 spray INTRANASAL DAILY #16 g 12/05/21 mcg/actuation nasal spray,suspension albuterol sulfate 90 mcg/actuation 2 inh INHALATION Q6H PRN 90 Days 03/07/22 aerosol inhaler #8.5 g ipratropium 0.5 mg-albuterol 3 mg 3 ml INHALATION QID PRN 90 Days 03/07/22 (2.5 mg base)/3 mL nebulization #270 ml soln amlodipine 5 mg tablet 5 mg PO DAILY #30 tab 03/12/22 butenafine 1 % topical cream 1 applic TOPICAL BID #30 g 03/12/22 fluticasone 250 mcg-salmeterol 50 1 inh INHALATION BID 90 Days #60 03/12/22 mcg/dose blistr powdr for each inhalation lisinopril 20 mg tablet 20 mg PO DAILY #30 tab 03/12/22 metoprolol succinate 50 mg See Rx Instructions .ROUTE 05/09/22 tablet,extended release 24 hr .COMPLEX #60 tablet predniSONE [
[2022-05-26 16:26] VITALS: BP 158/87; PULSE 88; RESP 24; TEMP 36.7; O2SAT 97
== END 2022-05-26 16:43 | disposition home or self-care (01) ==
PROVIDERS: Emergency Provider Nurse Practitioner Family; PCP Family Medicine
DX: S16.1XXA Strain of muscle, fascia and tendon at neck level, initial encounter (principal)
CPT/HCPCS: 99212; G0463

== ENCOUNTER 2022-07-08 14:00 | Outpatient (RCR) | payer OTHER, SELFPAY ==
--- NOTE | 2022-06-25 08:49 | HMH.PTOPEV ---
PT Outpatient Evaluation Rehab PT Outpatient Evaluation Start: 06/25/22 07:48 Freq: Status: Active Protocol: Document 06/25/22 08:36 JENNIFER (Rec: 06/25/22 08:49 PHORNE [id number]) Electronically Signed By Hugo Valentin, PT 06/25/22 08:36 Outpatient Therapy Subjective History Subjective History Pt is 46 yowf who presents with c/o pain in neck and L SHLD/UE x ~ 1 mo with insidious onset of symptoms. Pt states, I woke up from a nap and I just had the worst pain of my life in my neck and down my arm. Pt reports chiropractor and prescribed meds resulted in no improvement. Ice decreases pain temporarily. Pain worse with any activity requiring L UE to raise over shld level. She has PMH of COPD, CAD with stent, HL, HTN, Migraine, TIA. Chief Complaint Pain Symptom Type Ache,Sharp,Burning,Tingling Symptoms Relieved By Rest/Positioning,Ice Symptoms Aggravated By Physical Activity,Lifting Prior Functional Limitations None Current Functional Limitations Reaching,Lifting,Housework, Sleeping Symptom Description Constant but Variable Level of pain today (0-10) 3 Pain scale - at its worst (0-10) 7 Cervical Eval Palpation Cervical Muscles L Cervical Paraspinal,L Upper Trapezius,L Thoracic Paraspinals Cervical/Thoracic Palpation Findings Tenderness Flexibility Deficits Upper Trapezius Muscle Length (L) Mild Tightness Levaetor Scapulae Muscle Length (L) Mild Tightness Passive Joint Mobility Cervical PIVM Dec: R C2/3 L C2/3 R C3/4 L C3/4 R C4/5 L C4/5 R C5/6 L C5/6 R C6/7 L C6/7 R C7/T1 L C7/T1 WNL: R OA L OA R AA L AA AROM Cervical Spine Extension Active Range of 0-20 Motion (degrees) Cervical Spine Flexio
== END 2022-07-08 15:00 | disposition home or self-care (01) ==
LOC: PT 14:00
PROVIDERS: PCP Family Medicine; Visit Provider Family Medicine
DX: M54.2 Cervicalgia (principal); M79.2 Neuralgia and neuritis, unspecified
CPT/HCPCS: 97010; 97012; 97014; 97110; 97140; 97163; G0283

== ENCOUNTER → 2022-07-11 12:41 | Outpatient (CLI) | payer OTHER, SELFPAY ==
--- NOTE | 2022-07-11 13:56 | PC.NURSE ---
PATIENT COULD NOT DO METHACHOLINE CHALLENGE DUE TO FEV1 BEING BELOW 60%. DR. WHITMAN NOTIFIED
== END ==
PROVIDERS: PCP Family Medicine; Visit Provider Internal Medicine Pulmonary Disease
DX: R06.02 Shortness of breath (principal)

== ENCOUNTER 2022-12-02 14:35 | Emergency (ER) | payer OTHER, SELFPAY ==
[2022-12-02 14:55] VITALS: BP 141/80; PULSE 86; RESP 18; TEMP 36.8; O2SAT 99; BMI 40.6
--- NOTE | 2022-12-02 15:17 | EXP.UTC ---
Discharge Plan Disposition Patient Disposition: Home, Self-Care Condition: Good Prescriptions Prescriptions: New benzonatate 100 mg capsule 100 mg PO TID PRN (Reason: cough) Qty: 30 0RF azithromycin [Zithromax Z-Leandro] 250 mg tablet See Rx Instructions .ROUTE .COMPLEX 5 Days Qty: 6 0RF Rx Instructions: For 250 mg dose pack: take 500 mg today (day 1), then 250 mg for 4 days (days 2-5) methylprednisolone [Medrol (Leandro)] 4 mg tablets,dose pack See Rx Instructions .Route .COMPLEX 6 Days Qty: 21 0RF Rx Instructions: taper pack; No Action levonorgestrel [Mirena] 20 mcg/24 hr (5 years) intrauterine device 1 insert INTRAUTERI ONCE aspirin 81 mg tablet,delayed release (DR/EC) 81 mg PO DAILY fluticasone propionate [Flonase Allergy Relief] 50 mcg/actuation spray,suspension 1 spray INTRANASAL DAILY Qty: 16 4RF Rx Instructions: administer into each nostril nicotine 21 mg/24 hr patch 24 hour 1 patch TOPICAL DAILY oseltamivir [Tamiflu] 75 mg capsule 75 mg PO BID 5 Days Qty: 10 0RF nitroglycerin 0.4 mg tablet, sublingual 0.4 mg SUBLINGUAL Q5M PRN (Reason: chest pain) Qty: 20 0RF Rx Instructions: do not exceed 3 doses per episode ipratropium-albuterol 0.5 mg-3 mg(2.5 mg base)/3 mL solution for nebulization 3 ml INHALATION QID PRN (Reason: shortness of breath or wheezing) 90 Days Qty: 270 3RF butenafine [Lotrimin Ultra] 1 % cream 1 applic TOPICAL BID Qty: 30 5RF Rx Instructions: apply to corners of mouth clopidogrel [Plavix] 75 mg tablet 75 mg PO DAILY Qty: 90 3RF clobetasol 0.05 % cream 1 applic TP BID 14 Days Qty: 60 5RF nicotine (polacrilex) 4 mg gum 4 mg BUCCAL Q2H Qty: 50 5RF fluticasone propion-salmeterol [Advair Diskus] 250-50 mcg/dose blister with device 1 inh INHALATION BID 90 Days Qty: 60 2RF amlodipine 5 mg tablet 5 mg PO DAILY Qty: 30 5RF lisinopril 20 mg tablet 20 mg PO DAILY Qty: 30 5RF metoprolol succinate 100 mg tablet extended release 24 hr 100 mg PO BID Qty: 180 3RF montelukast 10 mg tablet 10 mg PO DAILY 90 Days Qty: 90 3RF furosemide [Lasix] 40 mg tablet 40 mg PO DAILY Qty: 30 5RF famotidine 20 mg tablet 40 mg PO DAILY Qty: 60 3RF albuterol sulfate 90 mcg/actuation HFA aerosol inhaler 2 inh INHALATION Q6H PRN (Reason: shortness of breath or wheezing) 90 Days Qty: 8.5 3RF atorvastatin 40 MG tablet 40 mg PO DAILY omeprazole 40 MG capsule,delayed release(DR/EC) 40 mg PO DAILY Referrals Follow up/Referrals: Jac Ha MD [Primary Care Provider] - See instructions Activity Restrictions/Add. Instructions Additional Instructions/Restrictions: Start antibiotic today. Be sure to complete entire prescription even if feeling better Monitor temp. Tylenol every 4 hours as needed and / or ibuprofen every 6 hours as needed ( As long as your primary care physician has told you that it ok to take both. For fever/aches/pains ER if no less than 101 despite Tylenol or Motrin Humidifier/vaporizer or hot steamy shower Inhaler every 4-6 hours as needed like we discussed. If unsure how to use it, ask pharmacist to demonstrate how. Should help open airways and improve cough, wheezing, and shortness of breath Mucinex during the day for your cough and cough suppressant only at night. Be sure to drink lots of water. Insurance may not cover a prescriptions for mucinex. Might be cheaper to get 400mg tablets and take 2 tablet in the morning, mid-day and evening with lots of water. *Tessalon Perles will not cause drowsiness but use at bedtime to help stop cough so that you may get some rest. *Start steroid today. Helps with inflammation therefore, cough and wheezing. Follow directions on the package. Reviewed side effects. Patient reports taking them before. Follow up IMMEDIATELY for new or worsening of sy
[2022-12-02 15:30] VITALS: BP 141/80; PULSE 86; RESP 18; TEMP 36.8; O2SAT 99
== END 2022-12-02 15:36 | disposition home or self-care (01) ==
PROVIDERS: Emergency Provider Nurse Practitioner; PCP Family Medicine
DX: J32.9 Chronic sinusitis, unspecified (principal); J40 Bronchitis, not specified as acute or chronic
CPT/HCPCS: 99212; G0463

== ENCOUNTER 2022-12-31 08:38 | Day surgery (SDC) | payer OTHER, SELFPAY ==
[2022-12-31] VITALS (12 sets, daily range): BP systolic 92–145; BP diastolic 40–85; PULSE 73–88; RESP 16–20; TEMP 36.9; O2SAT 95–98; BMI 46.0
--- NOTE | 2022-12-31 07:09 | IR_ITS ---
APPROVED REPORT Patient Location: Outpatient Undercollar Baster: ABIOLA Francisco RT (R) PROCEDURES Left heart catheterization Left ventriculogram Selective coronary angiogram INDICATION Known coronary artery disease, Decelerated angina pectoris Informed consent was obtained prior to the procedure. COMPLICATIONS None Estimated Blood Loss: Less than 10 mls TECHNIQUE One percent lidocaine used to anesthetize the right anterior aspect of the wrist. The right radial artery was accessed via the Seldinger technique. A 6 [place] sheath was placed in the right radial artery. 2.5 mg of verapamil, 800 mcg of nitroglycerin, 1mg Lidocaine and 5000 U Heparin were given through the arterial sheath. The papa catheter was also used to perform left heart catheterization, left ventriculogram and selective coronary angiogram. At the end of the procedure the sheath was removed good hemostasis was achieved using Traclet band, patient was transferred to the postop holding area in stable condition. ANGIOGRAPHIC RESULTS The left main artery Normal The left anterior descending artery Has proximal smooth 30 to 40% stenosis with a smooth mid vessel 30 to 40% stenosis The circumflex artery Is nondominant and has proximal and mid vessel 30% stenoses The right coronary artery Dominant and has a stent in the proximal segment which is widely patent free of in-stent restenosis with excellent proximal distal transitioning. There are additional 10 to 20% distal stenoses The BOLTON ventriculogram reveals Hyperdynamic at 75 to 80% The left ventricular end-diastolic pressure Severe to critically elevated at 45 mmHg IMPRESSION Mild to moderate nonflow limiting coronary disease Hyperdynamic ventricle Severe to critically elevated LVEDP consistent with severe diastolic dysfunction PLAN 1. Treatment of diastolic dysfunction 2. Better control of hypertension 3. Fluid restriction salt restriction 4. Liberalize diuretics 5. LDL less than 55 to be achieved with high intensity statin 6. Sleep study Electronically signed by : Rufino Elizabeth MD 12/31/2022 11:12:59
[2022-12-31 09:30] LABS: Basophils # 0.1 K/mm3 (0-0.2); Basophils % 0.8 % (0.1-2.0); Eosinophils # 0.1 K/mm3 (0.0-0.4); Eosinophils % 1.5 % (0.1-12.0); Hematocrit 46.7 % (37.0-47.0); Hemoglobin 15.1 g/dL (12.2-16.2); Lymphocytes # 2.2 K/mm3 (0.7-4.5); Lymphocytes % 22.1 % (10-50); Mean Corpuscular HGB Conc 32.4 g/dL (31.8-35.4); Mean Corpuscular Hemoglobin 30.3 pg (27.0-31.2); Mean Corpuscular Volume 93.5 fl (81-99); Mean Platelet Volume 8.1 fl (7.4-10.4); Monocytes # 0.5 K/mm3 (0.1-1.0); Monocytes % 5.5 % (1.7-9.3); Neutrophils # 6.9 K/mm3 (1.8-7.8); Neutrophils % 70.1 % (37.0-80.0); Platelet Count 365 K/mm3 (142-424); Red Cell Distribution Width 13.6 % (11.5-17.5); White Blood Count 9.8 K/mm3 (4.8-10.8)
[2022-12-31 09:55] LABS: Chloride 104 mmol/L (98-107)
[2022-12-31 09:56] LABS: Potassium 4.3 mmoL/L (3.5-5.1); Sodium 136 mmol/L (136-145)
[2022-12-31 09:59] LABS: Anion Gap 8.3 mEq/L (5-15); Blood Urea Nitrogen 10 mg/dl (7-17); Calcium 8.6 mg/dl (8.4-10.2); Carbon Dioxide 28 mmol/L (22.0-30.0); Creatinine Clearance Estimated 67 mL/min (50-200); Estimated Glomerular Filt Rate 76 ml/min (>60); GFR (African American) 92 ML/MIN (>60); Glucose 159 mg/dl (74-100)
[2022-12-31 11:52] LABS: Microscopic, Urine URINE MICROSCOPIC (MICROSCOPIC)
[2022-12-31 11:54] LABS: Appearance,Urine CLEAR (Clear); Bilirubin,Urine Negative (Negative); Blood, Urine Negative (Negative); Color,Urine YELLOW (Yellow); Glucose,Urine (UA) Negative (Negative); Ketones,Urine Negative (Negative); Leukocyte Esterase,Urine Negative (Negative); Nitrate,Urine Negative (Negative); PH,Urine 6.5 (5.0-8.5); Protein,Urine Negative (Negative); Specific Gravity, Urine <= 1.005 (1.005-1.030); Urobilinogen,Urine 0.2 EU/dl (0.2)
[2022-12-31 12:15] LABS: Bacteria,Urine Trace /lpf; Squamous Epithelial Cell,Urine Occasional #/hpf (0-5); WBC,Urine Occasional #/hpf (0-3)
== END 2022-12-31 14:24 | disposition home or self-care (01) ==
PROVIDERS: PCP Family Medicine; Visit Provider Internal Medicine
DX: I25.118 Atherosclerotic heart disease of native coronary artery with other forms of angina pectoris (principal); I10 Essential (primary) hypertension; Z79.899 Other long term (current) drug therapy; J44.9 Chronic obstructive pulmonary disease, unspecified; E78.5 Hyperlipidemia, unspecified
CPT/HCPCS: 80048; 81001; 85025; 93458; 99152; C1725; C1760; C1769; J1644; Q9967

== ENCOUNTER → 2023-01-08 09:51 | Outpatient (CLI) | payer OTHER, SELFPAY ==
--- NOTE | 2023-01-08 09:52 | CA_ITS ---
FINAL REPORT TECHNIQUE: Axial and color Doppler waveform evaluation of the right radial artery was performed. CLINICAL HISTORY: M25.531 - Pain in right wrist s/p heart cath 12/31/2022 with right radial artery access FINDINGS: The radial artery is patent. There is no evidence of pseudoaneurysm. IMPRESSION: No evidence of right the radial artery pseudoaneurysm. Reviewed, Interpreted and Dictated by Davide Ca III, MD Transcribed by Laury Vallejo Authenticated and [facility]
[2023-01-08 12:45] LABS: Chloride 107 mmol/L (98-107); Potassium 5.1 mmoL/L (3.5-5.1); Sodium 138 mmol/L (136-145)
[2023-01-08 12:48] LABS: Anion Gap 13.1 mEq/L (5-15); Blood Urea Nitrogen 18 mg/dl (7-17); Calcium 9.3 mg/dl (8.4-10.2); Carbon Dioxide 23 mmol/L (22.0-30.0); Estimated Glomerular Filt Rate 67 ml/min (>60); GFR (African American) 81 ML/MIN (>60); Glucose 145 mg/dl (74-100)
== END ==
PROVIDERS: Physician Assistant; PCP Family Medicine; Visit Provider Internal Medicine
DX: M25.531 Pain in right wrist (principal); G89.18 Other acute postprocedural pain; E78.5 Hyperlipidemia, unspecified
CPT/HCPCS: 36415; 80048; 83735; 93931

== ENCOUNTER → 2023-02-19 11:34 | Outpatient (CLI) | payer OTHER, SELFPAY ==
[2023-02-19 13:26] LABS: Chloride 103 mmol/L (98-107); Potassium 4.7 mmoL/L (3.5-5.1); Sodium 136 mmol/L (136-145)
[2023-02-19 13:29] LABS: Anion Gap 11.7 mEq/L (5-15); Blood Urea Nitrogen 15 mg/dl (7-17); Calcium 9.1 mg/dl (8.4-10.2); Carbon Dioxide 26 mmol/L (22.0-30.0); Estimated Glomerular Filt Rate 76 ml/min (>60); GFR (African American) 92 ML/MIN (>60); Glucose 118 mg/dl (74-100)
[2023-02-19 13:38] LABS: NT Pro Brain Natriuretic Pep. 17.3 pg/mL (0-125)
== END ==
PROVIDERS: PCP Family Medicine; Visit Provider Physician Assistant
DX: R06.00 Dyspnea, unspecified (principal); I25.10 Atherosclerotic heart disease of native coronary artery without angina pectoris; I10 Essential (primary) hypertension; E78.2 Mixed hyperlipidemia; Z72.0 Tobacco use
CPT/HCPCS: 36415; 80048; 83880

== ENCOUNTER → 2023-06-04 12:13 | Outpatient (CLI) | payer OTHER, SELFPAY ==
[2023-06-04 12:50] LABS: Basophils % 0.5 % (0.1-2.0); Eosinophils # 0.1 K/mm3 (0.0-0.4); Hematocrit 49.9 % (37.0-47.0); Lymphocytes # 2.7 K/mm3 (0.7-4.5); Lymphocytes % 30.4 % (10-50); Mean Corpuscular Hemoglobin 29.7 pg (27.0-31.2); Mean Corpuscular Volume 92.6 fl (81-99); Mean Platelet Volume 8.2 fl (7.4-10.4); Monocytes # 0.6 K/mm3 (0.1-1.0); Monocytes % 6.3 % (1.7-9.3); Neutrophils # 5.5 K/mm3 (1.8-7.8); Neutrophils % 61.7 % (37.0-80.0); Platelet Count 340 K/mm3 (142-424); Red Blood Count 5.39 M/mm3 (4.20-5.40)
[2023-06-04 13:26] LABS: Alanine Aminotransferase 38 U/L (12-78); Alkaline Phosphatase 59 U/L (38-126); Aspartate Amino Transferase 28 U/L (14-36); Bilirubin,Indirect 0.4 mg/dL (0.0-0.9); Bilirubin,Total 0.4 mg/dl (0.2-1.3); Bilirubin,Unconjugated 0.5 mg/dL (0.0-1.1); Blood Urea Nitrogen 10 mg/dl (7-17); Calcium 9.9 mg/dl (8.4-10.2); Carbon Dioxide 29 mmol/L (22.0-30.0); Chloride 104 mmol/L (98-107); Chol/HDL Ratio 3.5 (1-3.5); Cholesterol 156 mg/dl (140-200); Estimated Glomerular Filt Rate 89 ml/min (>60); GFR (African American) 108 ML/MIN (>60); Glucose 184 mg/dl (74-100); HDL Cholesterol 44 mg/dl (40-60); Magnesium 1.7 mg/dl (1.6-2.3); Sodium 137 mmol/L (136-145); Total Protein,Serum 6.6 g/dl (6.3-8.2); Triglycerides 206 mg/dl (30-150); VLDL Cholesterol 41 mg/dL (0-40)
[2023-06-04 13:37] LABS: Direct LDL Cholesterol 87.48 mg/dL (100-129)
[2023-06-04 13:44] LABS: Free T4 (Free Thyroxine) 0.86 ng/dl (0.78-2.19)
[2023-06-04 13:59] LABS: Thyroid Stimulating Hormone 2.09 uIU/mL (0.465-4.68)
== END ==
PROVIDERS: PCP Family Medicine; Visit Provider Nurse Practitioner
DX: E78.5 Hyperlipidemia, unspecified (principal); I51.89 Other ill-defined heart diseases; R60.9 Edema, unspecified
CPT/HCPCS: 36415; 80048; 80061; 80076; 83735; 84439; 84443; 85025

== ENCOUNTER → 2023-06-14 10:24 | Outpatient (CLI) | payer OTHER, SELFPAY ==
[2023-06-14 11:45] LABS: Blood Urea Nitrogen 17 mg/dl (7-17); Calcium 9.5 mg/dl (8.4-10.2); Carbon Dioxide 28 mmol/L (22.0-30.0); Chloride 103 mmol/L (98-107); Estimated Glomerular Filt Rate 67 ml/min (>60); GFR (African American) 81 ML/MIN (>60); Glucose 214 mg/dl (74-100); Sodium 138 mmol/L (136-145)
== END ==
PROVIDERS: PCP Family Medicine; Visit Provider Nurse Practitioner
DX: I51.89 Other ill-defined heart diseases (principal)
CPT/HCPCS: 36415; 80048

== ENCOUNTER → 2023-06-16 09:30 | Outpatient (CLI) | payer OTHER, SELFPAY ==
[2023-06-16 19:25] LABS: Hemoglobin A1C 7.2 % (4.0-6.0)
== END ==
PROVIDERS: PCP Student in an Organized Health Care Education/Training Program; Visit Provider Student in an Organized Health Care Education/Training Program
DX: E66.9 Obesity, unspecified (principal); E11.9 Type 2 diabetes mellitus without complications; Z68.42 Body mass index [BMI] 45.0-49.9, adult; Z79.84 Long term (current) use of oral hypoglycemic drugs
CPT/HCPCS: 83036

== ENCOUNTER → 2023-06-30 06:09 | Outpatient (CLI) | payer OTHER, SELFPAY ==
--- NOTE | 2023-06-30 | CA_ITS ---
APPROVED REPORT Exam: Exercise Treadmill Technologist: Jaci Johnson Ht: 5 ft 2 in Wt: 263 lbs BSA: 2.15 m2 HR: 81 bpm BP: 172/91 mmHg Rhythm: NSR Indications: Shortness of Air Medical History Medications: Lisinopril,,,,, Omeprazole,,,,, Isosorbide,,,,, Aspirin,,,,, Metoprolol,,,,, Metformin,,,,, Atorvastatin,,,,, Flonase,,,,, Albuterol,,,,, Montelukast,,,,, ADVAIR,,,,, CloPIdogrel,,,,, Stress Test Details Test: LEXISCAN HR Resting HR: 85 bpm Max Heart Rate (APMHR): 171 bpm Max HR Achieved: 97 bpm Target HR (85% APMHR): 145 bpm % of APMHR: 57 Recovery HR: 90 bpm BP Resting BP: 172.0/91.0 mmHg Max BP: 172.0/91.0 mmHg Recovery BP: 160.0/85.0 mmHg ECG Resting ECG: Sinus rhythm Clinical Exercise duration: 04:00 min Highest Stage Achieved: Exercise capacity: 1.0 METs Stress ECG Conclusion Symptoms: Dyspnea, Chest pain, Nausea Arrhythmias/Ectopy: None ST-T Changes: No significant ST changes Conclusion: Unremarkable Lexiscan stress test. Myoview images are reported separately. Test Summary REST . . . . . . . Resting REST 08:37 . . 85 . 172/ 91 . . Stage 1 . . . . . . . Myoview Injected Stage 1 01:00 . . 94 . . . . Stage 2 . . . . . . . Chest pain Stage 2 01:00 . . 95 . . . . Stage 3 01:00 . . 93 . 158/ 98 . . Stage 4 01:00 . . 93 . 144/ 93 . Stop exercise at 04:00 RECOVERY 01:00 . . 90 . . . . RECOVERY 02:00 . . 90 . 162/ 87 . . RECOVERY 03:00 . . 90 . 160/ 85 . . RECOVERY 03:01 . . 90 . 160/ 85 . . Electronically signed by : Adeola Whitley, 06/30/2023 13:39:38
--- NOTE | 2023-06-30 06:56 | NM_ITS ---
APPROVED REPORT Exam: Nuclear Stress Test Indication: CAD, 1 STENT, OBESITY, HTN, DM , HYPERLIPIDEMIA, TOB USE, FM HX, C.P., SOB, FATIGUE Patient Location: Outpatient Stress Tech: Jaci Johnson RI Tech:Genie Hamlin, ARRT RT (R)(N)(M) Ht: 5 ft 2 in Wt: 256 lbs Bra Size: C HR: 81 bpm BP: 172/91 mmHg BSA: 2.12 m2 Rhythm: NSR TID: 1.02 BMI: 46.8 History: CAD, 1 STENT, OBESITY, HTN, DM , HYPERLIPIDEMIA, TOB USE, FM HX, C.P., SOB, FATIGUE Procedure: Patient received 0.4 mg of intravenous Lexiscan, resting heart rate 81 bpm, resting blood pressure 172/91 mmHg, with Lexiscan maximum heart rate achieved was 95 bpm which is % of the maximum predicted heart rate and blood pressure was 158/98 mmHg. PT C/O C.P. AND SOB WITH LEXISCAN Cardiac Stress and Resting SPECT Images: Cardiac Stress and Resting SPECT images were obtained using technetium 99m Myoview 307 mCi stress and 10.73 mCi at rest. Resting and stress imaging in supine and prone positions demonstrate large sized, moderate, partially reversible perfusion defect in the basal to mid anterior LV wall. Gated imaging demonstrates normal global LV systolic function. There is mild hypokinesis in the anterior LV wall. LVEF is calculated at 55%. Conclusion: Large sized, moderate, partially reversible perfusion defect in the basal to mid anterior LV wall. Findings are suggestive of partial reversible ischemia. Gated imaging demonstrates normal global LV systolic function. There is mild hypokinesis in the anterior LV wall. LVEF is calculated at 55%. Electronically signed by : Adeola Whitley, 06/30/2023 13:52:48
== END ==
LOC: RAD 06:10
PROVIDERS: PCP Family Medicine; Visit Provider Internal Medicine
DX: R06.00 Dyspnea, unspecified (principal); I50.30 Unspecified diastolic (congestive) heart failure; I51.89 Other ill-defined heart diseases; E78.5 Hyperlipidemia, unspecified; R60.9 Edema, unspecified
CPT/HCPCS: 78452; 93017; A9502; J2785

== ENCOUNTER → 2023-07-14 10:59 | Outpatient (CLI) | payer OTHER, SELFPAY ==
--- NOTE | 2023-07-14 11:01 | CA_ITS ---
APPROVED REPORT EXAM: Comprehensive 2D, Doppler, and color-flow Echocardiogram Pen Tender: Radha Gatica RDCS Ht: 5 ft 2 in Wt: 263lbs BSA: 2.15 BP: 163/100 mmHg Indications: HTN,CP,SOA,SMOKER,FATIGUE,HLP, OBESITY TDS SECONDARY OBESITY 2D Dimensions LVOT 2.28 cm (M/F) 1.5-2.5 M-Mode Dimensions RVDd 2.21 cm (0.9-2.6) LA Diam 3.77 cm (1.9-4.0) LVDd 5.15 cm (3.5-5.7) Ao Diam 3.05 cm (2.0-3.7) LVDs 3.43 cm (3.5-5.7) IVSd 0.88 cm (0.6-1.1) PWd 1.03 cm (0.6-1.1) EF (Teich) 61.70% FS 33.40% EDV (Teich) 126.60 mL TAPSE 2.06 (<1.7) ESV (Teich) 48.50 mL LV Diastology E Decel Time 200.00 (160-240 msec) E/A Ratio 0.6 MED E' 4.10 (< 7 cm/sec) E'/MED E' Ratio 10.85 (>14) LAT E' 5.80 (<10 cm/sec) E/LAT E' Ratio 7.67 (>14) Mitral Valve MV E Max Carlos. 44.00 (40-130 cm/s) MV A Velocity 68.00 (40-130 cm/s) E/A Ratio 0.66 MV Decel. Time 200.00 (160-240 ms) MV PHT 59.00 ms Left Ventricle The left ventricle is normal size. The left ventricular systolic function is normal. The left ventricular ejection fraction is within the normal range. There is increased left ventricular wall thickness. There is normal LV segmental wall motion. Transmitral Doppler flow pattern suggests impaired LV relaxation. LVEF is 55%. Right Ventricle The right ventricle is normal size. The right ventricular systolic function is normal. There is mild increased in RV wall thickness. Atria The left atrium size is normal. The right atrium size is normal. There is Doppler evidence of interatrial shunt. Lipomatus atrial septal hypertrophy is present. Aortic Valve The aortic valve opens well. There is no aortic valvular stenosis. No aortic regurgitation is present. Mitral Valve The mitral valve is normal in structure. No evidence of mitral valve stenosis. Trace mitral regurgitation. Tricuspid Valve The tricuspid valve leaflets are thin and pliable. Trace tricuspid regurgitation. There is insufficient TR jet to estimate RVSP. Pulmonic Valve The pulmonary valve is normal in structure. Trace pulmonic regurgitation. Great Vessels The aortic root is normal in size. The ascending aorta is normal in size. IVC is normal in size and collapses >50% with inspiration. Pericardium There is no pericardial effusion. Other Information Study Quality: Fair Conclusion Normal biventricular systolic function. No significant valvular disease. Lipomatous hypertrophy of the interatrial septum. Electronically signed by : Adeola Whitley, 07/14/2023 22:10:32
== END ==
PROVIDERS: PCP Student in an Organized Health Care Education/Training Program; Visit Provider Internal Medicine
DX: R06.00 Dyspnea, unspecified (principal); I50.30 Unspecified diastolic (congestive) heart failure; I51.89 Other ill-defined heart diseases; E78.5 Hyperlipidemia, unspecified; R60.9 Edema, unspecified
CPT/HCPCS: 93306

== ENCOUNTER → 2023-07-15 15:00 | Outpatient (CLI) | payer OTHER, SELFPAY ==
[2023-07-16 08:14] LABS: Basophils # 0.1 K/mm3 (0-0.2); Basophils % 0.6 % (0.1-2.0); Eosinophils # 0.1 K/mm3 (0.0-0.4); Hematocrit 53.2 % (37.0-47.0); Hemoglobin 16.5 g/dL (12.2-16.2); Lymphocytes # 2.6 K/mm3 (0.7-4.5); Lymphocytes % 28.8 % (10-50); Mean Corpuscular Hemoglobin 30.1 pg (27.0-31.2); Mean Corpuscular Volume 97.2 fl (81-99); Mean Platelet Volume 10.1 fl (7.4-10.4); Monocytes # 0.6 K/mm3 (0.1-1.0); Monocytes % 7.2 % (1.7-9.3); Neutrophils # 5.6 K/mm3 (1.8-7.8); Neutrophils % 62.5 % (37.0-80.0); Platelet Count 319 K/mm3 (142-424); Red Blood Count 5.47 M/mm3 (4.20-5.40)
[2023-07-16 09:09] LABS: Amylase 50 U/L (30-110); Lipase 110 U/L (23-300)
[2023-07-16 11:11] LABS: Free T4 (Free Thyroxine) 0.85 ng/dl (0.78-2.19)
[2023-07-16 19:03] LABS: Alanine Aminotransferase 46 U/L (12-78); Albumin Level 4.1 g/dl (3.5-5.0); Alkaline Phosphatase 71 U/L (38-126); Anion Gap 21.6 mEq/L (5-15); Aspartate Amino Transferase 41 U/L (14-36); Bilirubin,Indirect 0.8 mg/dL (0.0-0.9); Bilirubin,Total 0.8 mg/dl (0.2-1.3); Bilirubin,Unconjugated 0.9 mg/dL (0.0-1.1); Blood Urea Nitrogen 11 mg/dl (7-17); Calcium 9.7 mg/dl (8.4-10.2); Carbon Dioxide 24 mmol/L (22.0-30.0); Chloride 99 mmol/L (98-107); Chol/HDL Ratio 3.3 (1-3.5); Cholesterol 110 mg/dl (140-200); Estimated Glomerular Filt Rate 76 ml/min (>60); GFR (African American) 92 ML/MIN (>60); Glucose 101 mg/dl (74-100); HDL Cholesterol 33 mg/dl (40-60); Magnesium 1.8 mg/dl (1.6-2.3); Potassium 4.6 mmoL/L (3.5-5.1); Sodium 140 mmol/L (136-145); Total Protein,Serum 6.7 g/dl (6.3-8.2); Triglycerides 170 mg/dl (30-150); VLDL Cholesterol 34 mg/dL (0-40)
[2023-07-16 19:35] LABS: Thyroid Stimulating Hormone 1.35 uIU/mL (0.465-4.68)
== END ==
PROVIDERS: Physician Assistant; PCP Student in an Organized Health Care Education/Training Program; Visit Provider Internal Medicine
DX: R06.00 Dyspnea, unspecified (principal); I50.30 Unspecified diastolic (congestive) heart failure; R60.9 Edema, unspecified; E78.5 Hyperlipidemia, unspecified
CPT/HCPCS: 36415; 80048; 80061; 80076; 82150; 83690; 83735; 84439; 84443; 85025

== ENCOUNTER → 2023-07-22 14:51 | Outpatient (CLI) | payer OTHER, SELFPAY ==
[2023-07-22 15:42] LABS: Basophils # 0.1 K/mm3 (0-0.2); Basophils % 0.7 % (0.1-2.0); Eosinophils # 0.1 K/mm3 (0.0-0.4); Eosinophils % 1.4 % (0.1-12.0); Hematocrit 46.3 % (37.0-47.0); Hemoglobin 15.4 g/dL (12.2-16.2); Lymphocytes # 3.3 K/mm3 (0.7-4.5); Lymphocytes % 34.8 % (10-50); Mean Corpuscular HGB Conc 33.2 g/dL (31.8-35.4); Mean Corpuscular Hemoglobin 30.7 pg (27.0-31.2); Mean Corpuscular Volume 92.5 fl (81-99); Mean Platelet Volume 8.3 fl (7.4-10.4); Monocytes # 0.6 K/mm3 (0.1-1.0); Monocytes % 5.9 % (1.7-9.3); Neutrophils # 5.5 K/mm3 (1.8-7.8); Neutrophils % 57.3 % (37.0-80.0); Platelet Count 304 K/mm3 (142-424); Red Cell Distribution Width 13.1 % (11.5-17.5); White Blood Count 9.6 K/mm3 (4.8-10.8)
[2023-07-22 16:37] LABS: Alanine Aminotransferase 34 U/L (12-78); Albumin Level 3.8 g/dl (3.5-5.0); Alkaline Phosphatase 60 U/L (38-126); Anion Gap 10.7 mEq/L (5-15); Aspartate Amino Transferase 26 U/L (14-36); Bilirubin,Direct 0.1 mg/dl (0.0-0.4); Bilirubin,Indirect 0.6 mg/dL (0.0-0.9); Bilirubin,Total 0.7 mg/dl (0.2-1.3); Bilirubin,Unconjugated 0.6 mg/dL (0.0-1.1); Blood Urea Nitrogen 10 mg/dl (7-17); Calcium 9.7 mg/dl (8.4-10.2); Carbon Dioxide 28 mmol/L (22.0-30.0); Chloride 107 mmol/L (98-107); Chol/HDL Ratio 3.3 (1-3.5); Cholesterol 121 mg/dl (140-200); Estimated Glomerular Filt Rate 67 ml/min (>60); GFR (African American) 81 ML/MIN (>60); Glucose 89 mg/dl (74-100); HDL Cholesterol 37 mg/dl (40-60); Magnesium 1.9 mg/dl (1.6-2.3); Potassium 4.7 mmoL/L (3.5-5.1); Sodium 141 mmol/L (136-145); Total Protein,Serum 6.5 g/dl (6.3-8.2); Triglycerides 160 mg/dl (30-150); VLDL Cholesterol 32 mg/dL (0-40)
[2023-07-22 16:47] LABS: NT Pro Brain Natriuretic Pep. 31.9 pg/mL (0-125)
[2023-07-22 16:49] LABS: Direct LDL Cholesterol 64.11 mg/dL (100-129)
[2023-07-22 16:56] LABS: Free T4 (Free Thyroxine) 1.05 ng/dl (0.78-2.19)
[2023-07-22 17:09] LABS: Thyroid Stimulating Hormone 1.14 uIU/mL (0.465-4.68)
== END ==
PROVIDERS: PCP Student in an Organized Health Care Education/Training Program; Visit Provider Internal Medicine
DX: I25.10 Atherosclerotic heart disease of native coronary artery without angina pectoris; I50.30 Unspecified diastolic (congestive) heart failure; E11.9 Type 2 diabetes mellitus without complications; E78.5 Hyperlipidemia, unspecified; R60.9 Edema, unspecified; R94.39 Abnormal result of other cardiovascular function study; E66.9 Obesity, unspecified; Z68.42 Body mass index [BMI] 45.0-49.9, adult; R06.09 Other forms of dyspnea
CPT/HCPCS: 36415; 80048; 80061; 80076; 83735; 83880; 84439; 84443; 85025

== ENCOUNTER → 2023-09-10 07:18 | Day surgery (SDC) | payer OTHER, SELFPAY ==
[2023-09-10 07:27] VITALS: BMI 46.3
[2023-09-10 07:28] VITALS: PULSE 82
[2023-09-10 07:52] VITALS: BP 179/98; PULSE 82; RESP 18; TEMP 36.9; O2SAT 98
[2023-09-10 08:05] VITALS: PULSE 82
[2023-09-10 08:17] LABS: Basophils # 0.1 K/mm3 (0-0.2); Basophils % 0.8 % (0.1-2.0); Eosinophils # 0.2 K/mm3 (0.0-0.4); Eosinophils % 2.8 % (0.1-12.0); Hemoglobin 15.6 g/dL (12.2-16.2); Lymphocytes # 2.8 K/mm3 (0.7-4.5); Lymphocytes % 36.4 % (10-50); Mean Corpuscular HGB Conc 34.6 g/dL (31.8-35.4); Mean Corpuscular Hemoglobin 32.1 pg (27.0-31.2); Mean Corpuscular Volume 92.6 fl (81-99); Mean Platelet Volume 8.3 fl (7.4-10.4); Monocytes # 0.5 K/mm3 (0.1-1.0); Monocytes % 6.5 % (1.7-9.3); Neutrophils # 4.1 K/mm3 (1.8-7.8); Neutrophils % 53.5 % (37.0-80.0); Platelet Count 293 K/mm3 (142-424); Red Blood Count 4.86 M/mm3 (4.20-5.40); Red Cell Distribution Width 13.4 % (11.5-17.5); White Blood Count 7.7 K/mm3 (4.8-10.8)
[2023-09-10 08:21] LABS: Chloride 110 mmol/L (98-107); Sodium 139 mmol/L (136-145)
[2023-09-10 08:25] LABS: Blood Urea Nitrogen 6 mg/dl (7-17); Calcium 8.9 mg/dl (8.4-10.2); Carbon Dioxide 25 mmol/L (22.0-30.0); Creatinine Clearance Estimated 76 mL/min (50-200); Estimated Glomerular Filt Rate 89 ml/min (>60); GFR (African American) 107 ML/MIN (>60); Glucose 108 mg/dl (74-100)
== END ==
PROVIDERS: PCP Student in an Organized Health Care Education/Training Program; Visit Provider Internal Medicine
DX: Z53.09 Procedure and treatment not carried out because of other contraindication (principal)
CPT/HCPCS: 80048; 85025

== ENCOUNTER 2023-09-12 08:06 | Day surgery (SDC) | payer OTHER, SELFPAY ==
[2023-09-12] VITALS (12 sets, daily range): BP systolic 128–174; BP diastolic 88–105; PULSE 60–80; RESP 16–26; O2SAT 90–100; BMI 46.3
--- NOTE | 2023-09-12 07:20 | IR_ITS ---
APPROVED REPORT Patient Location: Outpatient Vaccinator: ABIOLA Francisco RT (R) PROCEDURES Right heart catheterization Left heart catheterization Left ventriculogram Selective coronary angiogram FFR to the LAD Drug-eluting stent deployment to the proximal LAD INDICATION Coronary artery disease, Angina pectoris, Pulmonary hypertension, Dyspnea, High risk abnormal Myoview, Angiographic ambiguity of the proximal LAD, Ischemic response to adenosine with an FFR index of 0.77, Informed consent was obtained prior to the procedure. COMPLICATIONS None Estimated Blood Loss: Less than 10 mls TECHNIQUE One percent lidocaine was used to anesthetize the right anterior aspect of the right wrist. The right radial artery was accessed via the Seldinger technique and a 6 [place] hydrophilic sheath was placed in the right radial artery. Following this one percent lidocaine was used to anesthetize the right anterior aspect of the right neck. The right internal jugular vein was accessed via the Seldinger technique and a 7 [place] sheath was placed in the right internal jugular vein. Following this an arterial cocktail was administered using 5000U heparin, 2.5 mg verapamil, 1mg Lidocaine and 800mcg nitroglycerin into the right radial sheath. A papa catheter was used to perform left heart catheterization left ventriculogram and selective coronary angiography while a Barco-Beni catheter was used to perform right heart catheterization. Saturations were obtained in the pulmonary artery and right atrium. At the end of the diagnostic angiogram therapeutic Was administered giving a therapeutic ACT and the guide catheter was placed in left main artery followed by Choice PT extra-support wire being placed down the LAD. The proximal LAD had 40% proximal tandem stenoses. There was a high risk abnormal Myoview. I was concerned these were hemodynamically significant therefore it was decided to interrogate with FFR. Nevus FFR catheter was equalized in the left main artery and then advanced to the mid LAD. Adenosine was infused per protocol and the FFR index dropped to 0.77. The test was terminated due to the patient developing combative angina on the table. A 3.5 x 34 mm Otisco frontier stent was deployed at 20 bobo reducing the stenosis. A 4 mm x 12 mm balloon was then advanced to the ostial portion of the stent the proximal portion of the stent in the midportion of the stent and then deployed at 20 and 22 bobo. There were excellent angiographic results with ZAIRA-3 flow being present down the vessel before and after the procedure. At the end procedure the apparatus was removed the sheath was removed good hemostasis was achieved using TR banding patient was transferred to the postop holding area in stable condition for further management of the right IJ sheath ANGIOGRAPHIC RESULTS The left main artery Normal The left anterior descending artery Has proximal eccentric 40% stenosis followed by an additional eccentric 40% stenosis. The mid LAD then has 20 and 30% stenoses. The circumflex artery Is nondominant and has a proximal 30% stenosis in the mid vessel 30% stenosis. There is an additional 30 to 40% stenosis at the origin of the terminal obtuse marginal artery The right coronary artery Is a dominant vessel and has a proximal stent which is widely patent with minimal in-stent restenosis and excellent proximal distal transitioning. Entire right coronary artery has diffuse 20 to 30% nonflow limiting stenoses The BOLTON ventriculogram reveals Normal 60% The left ventricular end-diastolic pressure 25 mmHg Right atrial pressure 17 mmHg Pulmonary artery pressure 40/30 mmHg Pulmonary artery occlusion pressure 25 mmHg Hemoglobin 15.6 Aortic saturation 95% Right atrial saturation 80% Pulmonary artery
--- NOTE | 2023-09-12 13:15 | ECG_ITS ---
APPROVED REPORT Exam: Resting ECG HR:77 bpm ECG Measurements Heart Rate 77 AXES MT 169 P 19 QRSd 86 QRS -24 QT 373 T 64 QTc 405 Conclusion SINUS RHYTHM LOW QRS VOLTAGE IN PRECORDIAL LEADS [QRS DEFLECTION < 1.0 mV IN CHEST LEADS] Late R wave progression with anteroseptal changes UNCONFIRMED REPORT Electronically signed by : Colby Dash MD 09/12/2023 17:03:42
[2023-09-12 13:50] LABS: CATHL Arterial O2 SAT 78.3 % (90-100); CATHL Venous O2 SAT 80.7 % (75-80)
[2023-09-12 15:11] LABS: CATHL Activated Clotting Time 350 SEC (74-125)
== END 2023-09-12 15:34 | disposition home or self-care (01) ==
PROVIDERS: PCP Student in an Organized Health Care Education/Training Program; Visit Provider Internal Medicine
DX: R94.39 Abnormal result of other cardiovascular function study (principal); Z79.899 Other long term (current) drug therapy; Z79.01 Long term (current) use of anticoagulants; I25.10 Atherosclerotic heart disease of native coronary artery without angina pectoris; I50.30 Unspecified diastolic (congestive) heart failure; I27.20 Pulmonary hypertension, unspecified
CPT/HCPCS: 82810; 85347; 92928; 93005; 93460; 93571; 99152; 99153; C1725; C1760; C1769; C1876; C1894; C9600; J0153; J1644; Q9967

== ENCOUNTER → 2023-10-20 14:24 | Outpatient (CLI) | payer OTHER, SELFPAY ==
[2023-10-20 14:57] LABS: Basophils % 0.3 % (0.1-2.0); Eosinophils # 0.4 K/mm3 (0.0-0.4); Eosinophils % 3.8 % (0.1-12.0); Hematocrit 47.7 % (37.0-47.0); Hemoglobin 16.3 g/dL (12.2-16.2); Lymphocytes # 2.6 K/mm3 (0.7-4.5); Lymphocytes % 26.4 % (10-50); Mean Corpuscular HGB Conc 34.1 g/dL (31.8-35.4); Mean Corpuscular Hemoglobin 31.5 pg (27.0-31.2); Mean Corpuscular Volume 92.3 fl (81-99); Mean Platelet Volume 7.9 fl (7.4-10.4); Monocytes # 0.5 K/mm3 (0.1-1.0); Monocytes % 5.5 % (1.7-9.3); Neutrophils # 6.4 K/mm3 (1.8-7.8); Platelet Count 325 K/mm3 (142-424); Red Blood Count 5.17 M/mm3 (4.20-5.40); Red Cell Distribution Width 13.2 % (11.5-17.5)
[2023-10-20 16:25] LABS: Alanine Aminotransferase 24 U/L (12-78); Albumin Level 3.9 g/dl (3.5-5.0); Alkaline Phosphatase 57 U/L (38-126); Anion Gap 10.2 mEq/L (5-15); Aspartate Amino Transferase 23 U/L (14-36); Bilirubin,Direct 0.2 mg/dl (0.0-0.4); Bilirubin,Indirect 0.4 mg/dL (0.0-0.9); Bilirubin,Total 0.6 mg/dl (0.2-1.3); Bilirubin,Unconjugated 0.5 mg/dL (0.0-1.1); Blood Urea Nitrogen 9 mg/dl (7-17); Calcium 9.2 mg/dl (8.4-10.2); Carbon Dioxide 27 mmol/L (22.0-30.0); Chloride 104 mmol/L (98-107); Chol/HDL Ratio 4.1 (1-3.5); Cholesterol 148 mg/dl (140-200); Estimated Glomerular Filt Rate 76 ml/min (>60); GFR (African American) 92 ML/MIN (>60); Glucose 108 mg/dl (74-100); HDL Cholesterol 36 mg/dl (40-60); Potassium 4.2 mmoL/L (3.5-5.1); Sodium 137 mmol/L (136-145); Total Protein,Serum 6.7 g/dl (6.3-8.2); Triglycerides 134 mg/dl (30-150); VLDL Cholesterol 27 mg/dL (0-40)
[2023-10-20 16:33] LABS: NT Pro Brain Natriuretic Pep. 274 pg/mL (0-125)
[2023-10-20 16:37] LABS: Direct LDL Cholesterol 93.45 mg/dL (100-129)
[2023-10-20 16:41] LABS: Free T4 (Free Thyroxine) 0.88 ng/dl (0.78-2.19)
[2023-10-20 17:23] LABS: Hemoglobin A1C 5.7 % (4.0-6.0)
== END ==
PROVIDERS: PCP Student in an Organized Health Care Education/Training Program; Visit Provider Internal Medicine
DX: R06.00 Dyspnea, unspecified (principal); I20.0 Unstable angina; I50.30 Unspecified diastolic (congestive) heart failure; I51.89 Other ill-defined heart diseases; E11.9 Type 2 diabetes mellitus without complications; E78.5 Hyperlipidemia, unspecified; K21.9 Gastro-esophageal reflux disease without esophagitis; R60.9 Edema, unspecified; I63.9 Cerebral infarction, unspecified; E66.9 Obesity, unspecified; Z68.42 Body mass index [BMI] 45.0-49.9, adult; Z72.0 Tobacco use
CPT/HCPCS: 36415; 80048; 80061; 80076; 83036; 83880; 84439; 84443; 85025

== ENCOUNTER 2023-10-28 07:44 | Day surgery (SDC) | payer OTHER, SELFPAY ==
[2023-10-28] VITALS (11 sets, daily range): BP systolic 107–134; BP diastolic 64–107; PULSE 75–85; RESP 15–17; O2SAT 92–99; BMI 45.1
--- NOTE | 2023-10-28 07:11 | IR_ITS ---
APPROVED REPORT Patient Location: Outpatient Hydraulic Punch Press Operator: ABIOLA Francisco RT (R) PROCEDURES Left heart catheterization Left ventriculogram Selective coronary angiogram INDICATION Known coronary artery disease, Accelerated angina pectoris Informed consent was obtained prior to the procedure. COMPLICATIONS NONE Estimated Blood Loss: LESS THAN 10 ML TECHNIQUE One percent lidocaine used to anesthetize the right anterior aspect of the wrist. The right radial artery was accessed via the Seldinger technique. A 6 Micronesian sheath was placed in the right radial artery. 2.5 mg of Verapamil, 800 mcg of nitroglycerin, 1mg Lidocaine and 5000 U Heparin were given through the arterial sheath. The papa catheter was also used to perform left heart catheterization, left ventriculogram and selective coronary angiogram. At the end of the procedure the sheath was removed good hemostasis was achieved using Traclet band, patient was transferred to the postop holding area in stable condition. ANGIOGRAPHIC RESULTS The left main artery Normal The left anterior descending artery Has a stent the proximal segment which is widely patent free of in-stent restenosis with excellent proximal distal transitioning. There are diffuse 20% luminal irregularities throughout The circumflex artery Nondominant and has proximal and mid vessel 30 to 40% stenoses. The right coronary artery Is dominant and has diffuse proximal and mid vessel 10 to 20% stenoses The BOLTON ventriculogram reveals Normal 65% The left ventricular end-diastolic pressure 30 mmHg IMPRESSION Patent coronary arteries as described above Normal ejection fraction Severely elevated LVEDP PLAN 1. Treatment diastolic dysfunction 2. Recommend sleep study Electronically signed by : Rufino Elizabeth MD 10/28/2023 10:43:17
[2023-10-28 08:20] LABS: Basophils # 0.1 K/mm3 (0-0.2); Eosinophils # 0.3 K/mm3 (0.0-0.4); Eosinophils % 3.3 % (0.1-12.0); Hematocrit 48.9 % (37.0-47.0); Hemoglobin 16.5 g/dL (12.2-16.2); Lymphocytes # 3.1 K/mm3 (0.7-4.5); Lymphocytes % 30.3 % (10-50); Mean Corpuscular HGB Conc 33.8 g/dL (31.8-35.4); Mean Corpuscular Hemoglobin 30.7 pg (27.0-31.2); Mean Corpuscular Volume 91.1 fl (81-99); Monocytes # 0.6 K/mm3 (0.1-1.0); Monocytes % 5.6 % (1.7-9.3); Neutrophils # 6.1 K/mm3 (1.8-7.8); Neutrophils % 59.8 % (37.0-80.0); Platelet Count 355 K/mm3 (142-424); Red Blood Count 5.37 M/mm3 (4.20-5.40); Red Cell Distribution Width 13.2 % (11.5-17.5); White Blood Count 10.2 K/mm3 (4.8-10.8)
[2023-10-28 08:24] LABS: Chloride 105 mmol/L (98-107)
[2023-10-28 08:25] LABS: Sodium 136 mmol/L (136-145)
[2023-10-28 08:28] LABS: Blood Urea Nitrogen 11 mg/dl (7-17); Calcium 8.9 mg/dl (8.4-10.2); Carbon Dioxide 26 mmol/L (22.0-30.0); Creatinine Clearance Estimated 67 mL/min (50-200); Estimated Glomerular Filt Rate 76 ml/min (>60); GFR (African American) 92 ML/MIN (>60); Glucose 99 mg/dl (74-100)
== END 2023-10-28 13:30 | disposition home or self-care (01) ==
PROVIDERS: PCP Student in an Organized Health Care Education/Training Program; Visit Provider Internal Medicine
DX: I25.110 Atherosclerotic heart disease of native coronary artery with unstable angina pectoris (principal); F17.210 Nicotine dependence, cigarettes, uncomplicated; I11.0 Hypertensive heart disease with heart failure; I50.32 Chronic diastolic (congestive) heart failure; E11.9 Type 2 diabetes mellitus without complications; Z79.84 Long term (current) use of oral hypoglycemic drugs; Z79.899 Other long term (current) drug therapy; Z95.5 Presence of coronary angioplasty implant and graft
CPT/HCPCS: 80048; 85025; 93458; 99152; C1725; C1760; C1769; J1644; Q9967

== ENCOUNTER 2024-02-05 14:00 | Outpatient (CLI) | payer OTHER, SELFPAY ==
[2024-02-05 14:46] LABS: Amylase 49 U/L (30-110); Bilirubin,Unconjugated 0.5 mg/dL (0.0-1.1)
[2024-02-05 14:47] LABS: Alanine Aminotransferase 34 U/L (12-78); Albumin Level 3.8 g/dl (3.5-5.0); Alkaline Phosphatase 51 U/L (38-126); Aspartate Amino Transferase 31 U/L (14-36); Bilirubin,Direct 0.2 mg/dl (0.0-0.4); Bilirubin,Indirect 0.5 mg/dL (0.0-0.9); Bilirubin,Total 0.7 mg/dl (0.2-1.3); Lipase 107 U/L (23-300); Total Protein,Serum 6.4 g/dl (6.3-8.2)
== END 2024-02-05 23:59 ==
LOC: LAB 14:01
PROVIDERS: PCP Student in an Organized Health Care Education/Training Program; Visit Provider Internal Medicine
DX: F17.210 Nicotine dependence, cigarettes, uncomplicated (principal); Z68.42 Body mass index [BMI] 45.0-49.9, adult; Z79.899 Other long term (current) drug therapy; R10.9 Unspecified abdominal pain; E66.01 Morbid (severe) obesity due to excess calories; I25.10 Atherosclerotic heart disease of native coronary artery without angina pectoris; K21.9 Gastro-esophageal reflux disease without esophagitis; E78.2 Mixed hyperlipidemia; R06.09 Other forms of dyspnea; R60.9 Edema, unspecified; I50.30 Unspecified diastolic (congestive) heart failure; E11.69 Type 2 diabetes mellitus with other specified complication
CPT/HCPCS: 36415; 80076; 82150; 83690

== ENCOUNTER 2024-02-20 08:12 | Outpatient (CLI) | payer OTHER, SELFPAY ==
--- NOTE | 2024-02-20 08:12 | US_ITS ---
FINAL REPORT CLINICAL HISTORY: abdominal pain COMPARISON: None FINDINGS: Sonographic images of the abdomen were obtained. Fatty infiltration of the liver is present. The gallbladder has an unremarkable appearance without evidence of gallstones. There is no evidence of biliary ductal dilatation. The common hepatic duct measures 4 mm, which is within normal limits. Limited images of the pancreas are unremarkable. The spleen size is normal. The right kidney measures 10.5 in length. The left kidney measures 10.6 in length. There is an echogenic focus in the left kidney with posterior acoustical shadowing, consistent in appearance with a nonobstructing renal stone. This measures 4 mm in size. There is otherwise normal renal echogenicity. There is no evidence of hydronephrosis. The aorta has an unremarkable appearance. Limited images of the inferior vena cava are unremarkable. IMPRESSION: Fatty infiltration of the liver. 4 mm nonobstructing left renal stone. Reviewed, Interpreted and Dictated by Davide Ca III, MD Transcribed by Shefali Miller Authenticated and [facility]
== END 2024-02-20 23:59 ==
LOC: RAD 08:12
PROVIDERS: PCP Student in an Organized Health Care Education/Training Program; Visit Provider Internal Medicine
DX: R10.9 Unspecified abdominal pain (principal); E66.01 Morbid (severe) obesity due to excess calories; I25.10 Atherosclerotic heart disease of native coronary artery without angina pectoris; K21.9 Gastro-esophageal reflux disease without esophagitis; E78.2 Mixed hyperlipidemia; R06.09 Other forms of dyspnea; I51.89 Other ill-defined heart diseases; I50.30 Unspecified diastolic (congestive) heart failure; E11.69 Type 2 diabetes mellitus with other specified complication
CPT/HCPCS: 76700

== ENCOUNTER 2024-03-10 13:48 | Outpatient (CLI) | payer OTHER, SELFPAY ==
--- NOTE | 2024-03-10 13:58 | XR_ITS ---
FINAL REPORT TECHNIQUE: Chest PA & Lateral CLINICAL HISTORY: Shortness of breath COMPARISON: None FINDINGS: 2 views of the chest were performed. The heart size is normal. The mediastinum is within normal limits. There is no acute cardiopulmonary process. There are no pleural effusions. There is no pneumothorax. The bony thorax appears intact. IMPRESSION: No acute cardiopulmonary process. Reviewed, Interpreted and Dictated by Sixto Lee MD Transcribed by Elizabeth Hinojosa Authenticated and [facility]
[2024-03-10 14:23] LABS: Basophils # 0.1 K/mm3 (0-0.2); Basophils % 1.4 % (0.1-2.0); Eosinophils # 0.1 K/mm3 (0.0-0.4); Eosinophils % 1.1 % (0.1-12.0); Hemoglobin 16.9 g/dL (12.2-16.2); Lymphocytes # 2.4 K/mm3 (0.7-4.5); Lymphocytes % 25.1 % (10-50); Mean Corpuscular HGB Conc 33.2 g/dL (31.8-35.4); Mean Corpuscular Hemoglobin 30.7 pg (27.0-31.2); Mean Corpuscular Volume 92.6 fl (81-99); Mean Platelet Volume 7.9 fl (7.4-10.4); Monocytes # 0.5 K/mm3 (0.1-1.0); Monocytes % 4.7 % (1.7-9.3); Neutrophils # 6.6 K/mm3 (1.8-7.8); Neutrophils % 67.8 % (37.0-80.0); Platelet Count 367 K/mm3 (142-424); Red Blood Count 5.51 M/mm3 (4.20-5.40); Red Cell Distribution Width 13.6 % (11.5-17.5); White Blood Count 9.7 K/mm3 (4.8-10.8)
[2024-03-10 14:30] LABS: D-Dimer 0.36 ug/mL (0.0-0.5)
[2024-03-10 15:21] LABS: Chloride 103 mmol/L (98-107); Potassium 4.6 mmoL/L (3.5-5.1); Sodium 136 mmol/L (136-145)
[2024-03-10 15:24] LABS: Anion Gap 9.6 mEq/L (5-15); Blood Urea Nitrogen 11 mg/dl (7-17); Calcium 10.6 mg/dl (8.4-10.2); Carbon Dioxide 28 mmol/L (22.0-30.0); Estimated Glomerular Filt Rate 40 ml/min (>60); GFR (African American) 48 ML/MIN (>60); Glucose 143 mg/dl (74-100)
[2024-03-10 15:33] LABS: NT Pro Brain Natriuretic Pep. 102 pg/mL (0-125)
== END 2024-03-10 23:59 | disposition home or self-care (01) ==
LOC: LAB 16:11
PROVIDERS: PCP Student in an Organized Health Care Education/Training Program; Visit Provider Internal Medicine
DX: R06.02 Shortness of breath (principal); E11.69 Type 2 diabetes mellitus with other specified complication; I51.89 Other ill-defined heart diseases; R60.9 Edema, unspecified; I50.30 Unspecified diastolic (congestive) heart failure; R06.09 Other forms of dyspnea; E78.2 Mixed hyperlipidemia; K21.9 Gastro-esophageal reflux disease without esophagitis; I25.10 Atherosclerotic heart disease of native coronary artery without angina pectoris
CPT/HCPCS: 36415; 71046; 80048; 83880; 85025; 85378

== ENCOUNTER 2024-03-17 12:32 | Outpatient (CLI) | payer OTHER, SELFPAY ==
[2024-03-17 13:56] LABS: Anion Gap 13.8 mEq/L (5-15); Blood Urea Nitrogen 17 mg/dl (7-17); Calcium 10.3 mg/dl (8.4-10.2); Carbon Dioxide 29 mmol/L (22.0-30.0); Chloride 96 mmol/L (98-107); Estimated Glomerular Filt Rate 53 ml/min (>60); GFR (African American) 64 ML/MIN (>60); Glucose 229 mg/dl (74-100); Potassium 3.8 mmoL/L (3.5-5.1); Sodium 135 mmol/L (136-145)
== END 2024-03-17 23:59 | disposition home or self-care (01) ==
LOC: LAB 12:32
PROVIDERS: PCP Student in an Organized Health Care Education/Training Program; Visit Provider Internal Medicine
DX: I50.30 Unspecified diastolic (congestive) heart failure (principal); I51.89 Other ill-defined heart diseases; E11.69 Type 2 diabetes mellitus with other specified complication
CPT/HCPCS: 36415; 80048

== ENCOUNTER 2024-03-30 06:56 | Day surgery (SDC) | payer OTHER, SELFPAY ==
[2024-03-30] VITALS (15 sets, daily range): BP systolic 100–133; BP diastolic 60–76; PULSE 65–86; RESP 17–19; TEMP 36.6; O2SAT 90–98; BMI 44.6
--- NOTE | 2024-03-30 07:03 | CT_ITS ---
FINAL REPORT TECHNIQUE: Axial CT images were performed from the lung apices through the upper abdomen. Coronal reformats were submitted. This study was performed with techniques to keep radiation doses as low as reasonably achievable (ALARA). Individualized dose reduction techniques using automated exposure control or adjustment of mA and/or kV according to the patient's size were employed. CLINICAL HISTORY: worsening dyspnea FINDINGS: There is no axillary adenopathy. There are small mediastinal nodes. Heart size is normal. There is no pericardial or pleural effusion. There is a 4 mm right middle lobe nodule. Limited images of the upper abdomen reveal fatty liver. IMPRESSION: Right middle lobe nodule. Findings are nonspecific but consider follow-up CT in 6-12 months. Reviewed, Interpreted and Dictated by Davide Ca III, MD Transcribed by Susan Valle Authenticated and [facility]
--- NOTE | 2024-03-30 07:16 | IR_ITS ---
APPROVED REPORT Patient Location: Outpatient PROCEDURES Right heart catheterization Left heart catheterization Left ventriculogram Selective coronary angiogram Intravascular ultrasound of the LAD Drug-eluting stent deployment to the proximal mid LAD INDICATION Angina pectoris, Known coronary artery disease, Mechanism for in-stent restenosis with complex intervention, Pulmonary hypertension, HFpEF Informed consent was obtained prior to the procedure. COMPLICATIONS None Estimated Blood Loss: Less than 10 mls TECHNIQUE One percent lidocaine was used to anesthetize the right anterior aspect of the right wrist. The right radial artery was accessed via the Seldinger technique and a 6 Malagasy hydrophilic sheath was placed in the right radial artery. Following this one percent lidocaine was used to anesthetize the right anterior aspect of the right neck. The right internal jugular vein was accessed via the Seldinger technique and a 7 Malagasy sheath was placed in the right internal jugular vein. Following this an arterial cocktail was administered using 5000U heparin, 2.5 mg verapamil, 1mg Lidocaine and 800mcg nitroglycerin into the right radial sheath. A papa catheter was used to perform left heart catheterization left ventriculogram and selective coronary angiography while a [place]i catheter was used to perform right heart catheterization. Saturations were obtained in the pulmonary artery and right atrium. At the end of the procedure the arterial sheath was removed good hemostasis was achieved using Traclet band. Patient was transferred to the postop holding area in stable condition for venous sheath removal. At the end the diagnostic angiogram therapeutic heparin was administered giving a therapeutic ACT and the guide catheter was placed in left main artery followed by Choice PT extra-support wire placed on the LAD. The guide liner was advanced and intravascular ultrasound probe was then advanced. The MLA measured 3.7 mm??? in the mid LAD. This was a hemodynamically significant stenosis therefore 2.75 x 38 mm Martinez frontier stent was deployed at 18 bobo reducing the stenosis. A 3 mm x 12 mm noncompliant balloon was deployed at 26 bobo in the proximal and midportion of the stent to further post dilate. Although there was angiographic jailing of the first diagonal artery ZAIRA-3 flow continue down the diagonal artery therefore the apparatus was removed the sheath was removed and hemostasis was achieved using TR banding patient transferred to the postop holding in stable condition ANGIOGRAPHIC RESULTS The left main artery Normal The left anterior descending artery Has a stent in the proximal segment which is widely patent free of in-stent restenosis. Distally there is 70% stenosis at the junction of the large first diagonal artery followed by additional 30 and 40% distal stenoses The circumflex artery Is nondominant has a proximal to mid vessel concentric 40 to 50% stenosis The right coronary artery Is dominant and has a stent in the proximal segment which is widely patent free of in-stent restenosis with excellent proximal distal transitioning. There are additional 20 and 30% distal stenoses The [place]OLTON ventriculogram reveals Normal 65% The left ventricular end-diastolic pressure 30 to 35 mmHg Right atrial pressure 20 mmHg Pulmonary artery pressure 45/35 mmHg Pulmonary occlusion pressure 32 mmHg Right atrial saturation 76% Pulmonary artery saturation 70% Aortic saturation 100% Hemoglobin 15.9 Cardiac output 6.4 L/min Cardiac index 3 IMPRESSION Severe proximal to mid LAD disease as described above Successful stenting the proximal to mid LAD severe disease reduced to 0% with 1 drug-eluting stent Moderate pulmonary hypertension Persistent biventricular congestive heart failure with pulmonary occlusion pressure of 32 Normal ejection fraction Elevated LVEDP PLAN 1. Dual antiplatelet therapy 2. Higher doses of diuretics to treat HFpEF 3. Avoidance of carbonated products 4. LDL less than 55 to achieve that high intensity statin 5. Cardiac rehabilitation Electronically signed by : Rufino Elizabeth MD 03/30/2024 15:03:23
[2024-03-30 08:53] LABS: Basophils # 0.1 K/mm3 (0-0.2); Basophils % 1.3 % (0.1-2.0); Eosinophils # 0.1 K/mm3 (0.0-0.4); Eosinophils % 1.8 % (0.1-12.0); Hematocrit 48.4 % (37.0-47.0); Hemoglobin 15.9 g/dL (12.2-16.2); Lymphocytes # 2.4 K/mm3 (0.7-4.5); Mean Corpuscular HGB Conc 32.7 g/dL (31.8-35.4); Mean Corpuscular Hemoglobin 31.1 pg (27.0-31.2); Mean Platelet Volume 8.3 fl (7.4-10.4); Monocytes # 0.4 K/mm3 (0.1-1.0); Monocytes % 5.3 % (1.7-9.3); Neutrophils # 4.8 K/mm3 (1.8-7.8); Neutrophils % 61.6 % (37.0-80.0); Platelet Count 299 K/mm3 (142-424); Red Cell Distribution Width 13.5 % (11.5-17.5); White Blood Count 7.8 K/mm3 (4.8-10.8)
[2024-03-30 08:58] LABS: Blood Urea Nitrogen 12 mg/dl (7-17); Calcium 9.5 mg/dl (8.4-10.2); Carbon Dioxide 28 mmol/L (22.0-30.0); Chloride 103 mmol/L (98-107); Creatinine Clearance Estimated 67 mL/min (50-200); Estimated Glomerular Filt Rate 76 ml/min (>60); GFR (African American) 92 ML/MIN (>60); Glucose 158 mg/dl (74-100); Sodium 140 mmol/L (136-145)
[2024-03-30] MEDS: 0.9 % SODIUM CHLORIDE 500 ML 25 ML IV (09:57)
[2024-03-30] MEDS: LIDOCAINE 1% 10ML MDV 20 ML IJ (09:57)
[2024-03-30] MEDS: HEPARIN 1,000 UNITS/500ML NS (CATH LAB) 3000 UNIT IV (09:57)
[2024-03-30] MEDS: diphenhydrAMINE 50MG/ML VIAL 50 MG IV (09:58)
[2024-03-30] MEDS: NITROGLYCERIN 800MCG/8ML SYR (CATH LAB) 800 MCG IA (09:58)
[2024-03-30] MEDS: VERAPAMIL 2.5MG/ML 2ML VIAL 2.5 MG IV (09:58)
[2024-03-30] MEDS: HEPARIN 1,000 UNITS/ML 10ML VIAL (CATH LAB) 10000 UNIT IV ×2 (09:58→11:02)
[2024-03-30] MEDS: MIDAZOLAM HCL 1MG/1ML 5ML VIAL 1 MG IV ×3 (10:17→11:07)
[2024-03-30] MEDS: FENTANYL 100MCG/2ML VIAL 25 MCG IV (10:18)
[2024-03-30] MEDS: FENTANYL 100MCG/2ML VIAL 50 MCG IV (10:44)
[2024-03-30] MEDS: IOPAMIDOL-370 (76%);100ML BOTTLE 120 ML IV (11:43)
[2024-03-30 11:47] LABS: CATHL Arterial O2 SAT 78 % (90-100); CATHL Venous O2 SAT 76 % (75-80)
[2024-03-30 12:14] LABS: CATHL Activated Clotting Time > 400 SEC (74-125)
== END 2024-03-30 15:15 | disposition home or self-care (01) ==
PROVIDERS: PCP Student in an Organized Health Care Education/Training Program; Visit Provider Internal Medicine
DX: I25.118 Atherosclerotic heart disease of native coronary artery with other forms of angina pectoris (principal); I50.30 Unspecified diastolic (congestive) heart failure; R06.09 Other forms of dyspnea; I11.0 Hypertensive heart disease with heart failure; F17.210 Nicotine dependence, cigarettes, uncomplicated; E11.9 Type 2 diabetes mellitus without complications; Z79.85 Long-term (current) use of injectable non-insulin antidiabetic drugs; J44.9 Chronic obstructive pulmonary disease, unspecified; I27.20 Pulmonary hypertension, unspecified
CPT/HCPCS: 71250; 80048; 82810; 85025; 85347; 92928; 92978; 93460; 99152; 99153; C1725; C1760; C1769; C1876; C1894; C9600; J1644; Q9967

== ENCOUNTER 2024-03-31 13:40 | Observation (INO) | payer OTHER, SELFPAY ==
[2024-03-31] VITALS (10 sets, daily range): BP systolic 116–172; BP diastolic 66–108; PULSE 54–107; RESP 16–20; TEMP 36.6–37; O2SAT 94–98; BMI 46.0; BMI 45.7
--- NOTE | 2024-03-31 13:41 | ECG_ITS ---
APPROVED REPORT Exam: Resting ECG HR:104 bpm ECG Measurements Heart Rate 104 AXES LA 148 P 75 QRSd 89 QRS -70 QT 323 T 74 QTc 383 Conclusion SINUS TACHYCARDIA LEFT AXIS DEVIATION [QRS AXIS < -30] Electronically signed by : TENNILLE ALVARENGA, 04/01/2024 10:13:21
--- NOTE | 2024-03-31 13:44 | PC.NURSE ---
in room talking with patient at this time.
--- NOTE | 2024-03-31 13:49 | CT_ITS ---
FINAL REPORT TECHNIQUE: Thin section axial CT with IV contrast supplemented with multiplanar reconstruction under CT angiogram protocol. This study was performed with techniques to keep radiation doses as low as reasonably achievable (ALARA). Individualized dose reduction techniques using automated exposure control or adjustment of mA and/or kV according to the patient''s size were employed. NASCET criteria was utilized during interpretation. CLINICAL HISTORY: heart cath 5.14 and IJ cath. R sided neck swelling FINDINGS: Aortic arch: Arch shows no significant narrowing. Great vessel origins are widely patent. Right carotid: There is mild plaque at the carotid bulb. No significant carotid stenosis identified. Left carotid: There is mild correct at the carotid bulb. No significant carotid stenosis identified. Vertebral: Right vertebral artery is dominant. No significant stenosis is present. There is enlargement of the right sternocleidomastoid muscle consistent with intramuscular hemorrhage or possible myositis. No fluid collection is seen to suggest an abscess. IMPRESSION: Enlargement of the right sternocleidomastoid muscle consistent with intramuscular hemorrhage or myositis. Reviewed, Interpreted and Dictated by Davide Ca III, MD Transcribed by Susan Valle Authenticated and . [facility]
--- NOTE | 2024-03-31 13:49 | CT_ITS ---
FINAL REPORT CLINICAL HISTORY: heart cath 5.14 and IJ cath. R sided neck swelling FINDINGS: Thin section axial CT images of the chest were obtained with contrast. 3D reformatted images were also obtained. This study was performed with techniques to keep radiation doses as low as reasonably achievable (ALARA). Individualized dose reduction techniques using automated exposure control or adjustment of mA and/or kV according to the patient''s size were employed. There is no evidence of pulmonary embolism. There is no evidence of thoracic aortic aneurysm or dissection. There is no evidence of mediastinal or hilar mass or adenopathy. There is no evidence of pulmonary mass or nodule. No localized inflammatory process is seen within the lungs. There is mild atelectasis. Limited images of the upper abdomen reveal mild fatty infiltration of the liver. IMPRESSION: No evidence of pulmonary embolism. Mild atelectasis. Reviewed, Interpreted and Dictated by Davide Ca III, MD Transcribed by Susan Valle Authenticated and [facility]
--- NOTE | 2024-03-31 13:57 | [facility].EDCP ---
Discharge Plan Disposition Patient Disposition: Admitted Chief Complaint: Chest Pain Clinical Impressions Clinical Impression: Hematoma of neck, Chest pain, Elevated troponin Discharge ED Provider: Corin Betancourt HPI <Larry Magdaleno MD - Last Filed: 03/31/24 14:58> General Chief Complaint: Chest Pain Stated Complaint: chest pain Time Seen by Provider: 03/31/24 13:42 Mode of Arrival: Ambulatory Source of Information: Patient Limitations: No Limitations Description of Symptoms (Recalled from ER Triage Doc. by RN): Patient reports having a stent placed yesterday. Today she began to have chest pain that radiated into her left arm and neck. States the cath site on her neck is swollen and she is worried. States she took two Nitro prior to arrival with resolve of her chest pain. History of Present Illness HPI narrative: 48-year-old female history of hypertension, hyperlipidemia, CAD status post stenting yesterday, 03/30 in her LAD, diabetes, CHF presenting with chest pain, right-sided neck swelling. Patient states that chest pain just after waking up this started in her sternum, radiates into her left shoulder and left armpit. Associate with shortness of breath, no nausea, vomiting, diaphoresis. Also having associated right-sided neck swelling where she had internal jugular vein catheterized. States that she is having voice changes, difficulty and pain with swallowing, difficulty ranging neck to the right side. Currently taking Plavix. Denies neurologic deficits. Please note that above description of symptoms, in this electronic medical record under categorization of recalled from ER triage doctor by RN are reflective of an initial nursing assessment, however, is not reflective of my full history and physical exam that was personally taken and clarified. Consequentially, this preceding description of symptoms, which may include the patient's categorized chief complaint in the EMR, do not reflect my personal clinical impression, and the ultimate description of history of present illness and patient stated complaints should be deferred to this section of the note. Unless stated otherwise or congruent with this section of the note, additional signs, symptoms, or incongruence should be interpreted as inaccurate with my clinical impression. Related Data Home Medications Medication Instructions Recorded Confirmed levonorgestrel 21 mcg/24 hr (up to 1 insert intrauterine ONCE Heart 02/03/18 03/30/24 8 years) 52 mg intrauterine device disease (Mirena) aspirin 81 mg tablet,delayed 81 mg PO DAILY heart health 10/01/21 03/30/24 release fluticasone 250 mcg-salmeterol 50 1 inh inhalation BID . 12/31/22 03/30/24 mcg/dose blistr powdr for inhalation (Advair Diskus) metoprolol succinate 100 mg 100 mg PO BID . 12/31/22 03/30/24 tablet,extended release 24 hr montelukast 10 mg tablet 10 mg PO DAILY . 12/31/22 03/30/24 Previous Rx's Medication Instructions Recorded ipratropium 0.5 mg-albuterol 3 mg 3 ml inhalation QID PRN shortness 03/07/22 (2.5 mg base)/3 mL nebulization of breath or wheezing 90 days #270 soln mL albuterol sulfate 90 mcg/actuation 2 inh inhalation Q6H PRN shortness 11/28/22 aerosol inhaler of breath or wheezing 90 days #8.5 grams sacubitril 97 mg-valsartan 103 mg 1 tab PO BID #60 tabs 06/18/23 tablet (Entresto) dapagliflozin propanediol 10 mg 10 mg PO DAILY 90 days #90 tabs 07/22/23 tablet (Farxiga) nitroglycerin 0.4 mg sublingual 0.4 mg sublingual Q5M PRN chest 09/17/23 tablet pain #20 tabs atorvastatin 80 mg tablet 80 mg PO DAILY #30 tabs 09/22/23 clopidogrel 75 mg tablet See Rx Instructions .Route 11/18/23 .COMPLEX #90 tabs omeprazole 40 mg capsule,delayed See Rx Instructions .Route 12/22/23 release .COMPLEX #90 caps tirzepatide 2.5 mg/0.5 mL 2.5 mg (0.5 mL) SQ WEEKLY #2 mL 02/12/24 subcutaneous pen injector (Analilia) amlodipine 5 mg tablet 5 mg PO DAILY #30 tabs 03/17/24 metolazone 2.5 mg tablet 2.5 mg PO DAILY #90 tabs 03/17/24 bumetanide 2 mg tablet 2 mg PO DAILY 30 days #30 tabs 03/30/24 metoprolol succinate 50 mg 50 mg PO DAILY 30 days #30 tabs 03/30/24 tablet,extended release 24 hr spironolactone 100 mg tablet 100 mg PO DAILY 30 days #30 tabs 03/30/24 (Aldactone) Allergies Allergy/AdvReac Type Severity Reaction Status Date / Time oxycodone Allergy Unknown I-ITCHING Verified 03/17/24 12:48 Penicillins Allergy Unknown S-ANAPHYLAX Verified 03/17/24 12:48 IS pepper (genus Capsicum) Allergy Unknown I-RASH, Verified 03/17/24 12:48 [From PEPPERS (FOOD/DRUG)] BANANA PEPPERS bupropion AdvReac sick to Verified 03/17/24 12:48 stomach ozempic AdvReac Mild vomiting Uncoded 03/17/24 12:48 PFSH <Larry Magdaleno MD - Last Filed: 03/31/24 14:58> PFS Disclaimer: The information contained in this section may have been updated after the patient was seen, as this information can be updated by other users. Medical History Abnormal stress test DM2 (diabetes mellitus, type 2) Diastolic congestive heart failure Dyspnea Post-op pain Wrist pain, right Angina pectoris Hyperlipidemia Hypertension Influenza A Moderate persistent asthma Family history of asthma Smoking greater than 30 pack years Dyspnea on exertion Tobacco abuse counseling Allergic rhinitis Asthma Pulmonary emphysema Tobacco abuse COPD (chronic obstructive pulmonary disease) Gastroesophageal reflux disease Right arm pain Coronary artery disease Medical mgt DEC 2022 NICOLE to RCA, 11/22/2021. DAPT with ASA and Plavix. Abnormal electrocardiogram [ECG] [EKG] HTN (hypertension) Surgical History History of laparoscopy History of hand surgery History of tubal ligation History of heart artery stent Family History Other COPD (chronic obstructive pulmonary disease) Social History Smoking Status: Unknown if ever smoked second hand exposure: No alcohol intake: never substance use type: former substance user and crack/cocaine current occupational status: unemployed Travel in the last 8 weeks: Inside the [place] household members: spouse housing: house current occupational exposures/hazards: No <Larry Magdaleno MD - Last Filed: 03/31/24 14:58> ROS Obtained: Yes All systems reviewed & no additional complaints except as documented Physical Exam <Larry Magdaleno MD - Last Filed: 03/31/24 14:58> General General appearance: alert Neck Neck exam: Present trachea midline, tenderness and other (Palpable hematoma overlying right side of neck at great vessels. Catheterization site hemostatic. No bruit or stridor appreciated.); Absent full ROM (Secondary to pain) Chest Chest inspection: Present normal inspection and symmetric chest wall rise Respiratory Respiratory exam: Present normal lung sounds bilaterally; Absent respiratory distress, wheezes, stridor, accessory muscle use or prolonged expiratory phase Cardiovascular Cardiovascular exam: Present normal rhythm and tachycardia Extremities Exam Extremities exam: Present edema Neurological Exam Neurological exam: Present alert, oriented X3, CN II-XII intact and normal gait; Absent motor sensory deficit Skin Skin exam: Present warm and dry; Absent cyanosis, diaphoresis or pallor HEART Score <Larry Magdaleno MD - Last Filed: 03/31/24 14:58> HEART Score HEART Score assessment performed?: Yes HEART Score: 7 <Corin Betancourt DO - Last Filed: 03/31/24 16:29> HEART Score History (anamnesis): Moderately suspicious ECG: Non-specific disturbance Age: 45-65 years Risk factors: Atherosclerosis history Troponin: > 3x normal limit HEART Score: 7 Critical Care <Larry Magdaleno MD - Last Filed: 03/31/24 14:58> Critical Care Time Critical Care Time: No Medical Decision Making <Larry Magdaleno MD - Last Filed: 03/31/24 14:58> Medical Records Medical records reviewed: Yes I reviewed the patient's medical records. Lance Inquiry Pt receiving controlled substance: No Lance was queried for this patient: No Vital Signs Vital Signs: 03/31/24 13:40 03/31/24 13:43 03/31/24 14:01 Temperature 98.0 F Temperature Source Oral Pulse Rate 106 H 99 H Pulse Rate [Radial] 107 H Respiratory Rate 18 Blood Pressure 172/108 H 131/77 Blood Pressure [Left Arm] 172/108 H Blood Pressure Mean [Left Arm] 129 Blood Pressure Source [Left Arm] Automatic Cuff Blood Pressure Position [Left Arm] Sitting 02 Sat by Pulse Oximetry 97 97 95 Oxygen Delivery Method Room Air Room Air Room Air 03/31/24 14:30 03/31/24 15:00 03/31/24 15:30 Temperature Temperature Source Pulse Rate 97 H 93 H 90 Pulse Rate [Radial] Respiratory Rate Blood Pressure 118/89 131/66 121/82 Blood Pressure [Left Arm] Blood Pressure Mean [Left Arm] Blood Pressure Source [Left Arm] Blood Pressure Position [Left Arm] 02 Sat by Pulse Oximetry 98 96 94 L Oxygen Delivery Method Room Air Room Air Room Air 03/31/24 16:00 Temperature Temperature Source Pulse Rate 85 Pulse Rate [Radial] Respiratory Rate Blood Pressure 116/80 Blood Pressure [Left Arm] Blood Pressure Mean [Left Arm] Blood Pressure Source [Left Arm] Blood Pressure Position [Left Arm] 02 Sat by Pulse Oximetry 95 Oxygen Delivery Method Room Air Lab Data Labs: Lab Results 03/31/24 13:43: WBC 9.7, RBC 5.31, Hgb 16.5 H, Hct 50.9 H, MCV 95.8, MCH 31.1, MCHC 32.4, RDW 13.4, Plt Count 341, MPV 8.6, Neut % (Auto) 54.9, Lymph % (Auto) 35.8, [place] % (Auto) 6.3, Eos % (Auto) 1.1, Baso % (Auto) 1.8, Neut # (Auto) 5.3, Lymph # (Auto) 3.5, [place] # (Auto) 0.6, Eos # (Auto) 0.1, Baso # (Auto) 0.2, PT 10.1, INR 0.93, APTT 25.1, Sodium 136, Potassium 3.2 L, Chloride 100, Carbon Dioxide 30, Anion Gap 9.2, BUN 17 D, Creatinine 1.00 D, Estimated Creat Clear 53, Estimated GFR 59, Est GFR ( Amer) 71 D, Glucose 236 H, Calcium 10.4 H, Total Bilirubin 0.7, AST 55 H, ALT 66, Alkaline Phosphatase 56, Troponin I 0.36 H, NT-Pro-B Natriuret Pep 75.1, Total Protein 7.3, Albumin 4.1, Globulin 3.2, Albumin/Globulin Ratio 1.3 03/31/24 13:54: Lactate 1.4 03/31/24 13:43 03/31/24 13:43 Response Orders (Tests/Meds): ED MEDICATIONS Discontinued Medications Generic Name Dose Route Start Last Admin Trade Name Freq PRN Reason Stop Dose Admin Iopamidol 100 ml 03/31/24 14:27 03/31/24 14:28 Iopamidol-370 (76%);100ml Bottle IV 03/31/24 14:28 100 ml ONCE ONE Administration Iopamidol 70 ml 03/31/24 14:27 03/31/24 14:29 Iopamidol-370 (76%);100ml Bottle IV 03/31/24 14:28 70 ml ONCE ONE Administration Sodium Chloride 50 ml 03/31/24 14:27 03/31/24 14:28 0.9 % Sodium Chloride 50 Ml Vial IV 03/31/24 14:28 40 ml ONCE ONE Administration Sodium Chloride 10 ml 03/31/24 14:27 03/31/24 14:28 Sodium Chloride 0.9% 10ml Syr (Rad Only) IV 03/31/24 14:28 10 ml ONCE ONE Administration Sodium Chloride 50 ml 03/31/24 14:27 03/31/24 14:28 0.9 % Sodium Chloride 50 Ml Vial IV 03/31/24 14:28 40 ml ONCE ONE Administration ORDERS Category Date Time Status CT angio chest - dissection Stat Cat Scan 03/31/24 13:[address] angio neck Stat Cat Scan 03/31/24 13:49 Completed CBC w/Auto Diff [Complete Blood Count Auto Diff] Stat Lab 03/31/24 13:43 Completed CMP [Comprehensive Metabolic Panel] Stat Lab 03/31/24 13:43 Completed Lactic Acid Stat Lab 03/31/24 13:54 Completed NT Pro Brain Natriuretic Pep. Stat Lab 03/31/24 13:43 Completed PT INR [Prothrombin Time INR] Stat Lab 03/31/24 13:43 Completed PTT [Activated Partial Thrombo Time] Stat Lab 03/31/24 13:43 Completed Trop I [Troponin I] Stat Lab 03/31/24 13:43 Completed Troponin I Q3H Lab 03/31/24 17:00 Ordered Troponin I Q3H Lab 03/31/24 20:00 Ordered MDM Narrative Medical Decision Narrative: 48-year-old female history of hypertension, hyperlipidemia, CAD status post stenting yesterday, 03/30 in her LAD, diabetes, CHF presenting with chest pain, right-sided neck swelling. Patient states that chest pain just after waking up this started in her sternum, radiates into her left shoulder and left armpit. Associate with shortness of breath, no nausea, vomiting, diaphoresis. Also having associated right-sided neck swelling where she had internal jugular vein catheterized. States that she is having voice changes, difficulty and pain with swallowing, difficulty ranging neck to the right side. Currently taking Plavix. Denies neurologic deficits. History was obtained via conversation with patient. On arrival, patient hemodynamically stable, alert, oriented x4, appropriate, GCS 15, moving all extremities spontaneously, pupils equal and reactive to light. Full physical exam performed and significant for patient appears to be anxious. Tachycardic, moderately hypertensive, neurologically intact including cranial nerves, cerebellar, motor and sensory exam. She does have hematoma on the right side of her neck just overlying great vessels superior to the clavicle. Hemostatic. No bruit or stridor appreciated. Patient's voice does appear raspy, she states that this is basically her normal voice. Still having difficulty swallowing. No pain with swallowing. Unable to range her neck to the right secondary to severe pain in the right side of her neck causing patient to become tearful. Cardiopulmonary exam within normal limits and pulses equal and symmetric. Differential includes reperfusion injury, stent thrombosis, coronary artery dissection, microvascular coronary artery disease, CHF, ACS, [place], coronary artery dissection, expanding neck hematoma, vascular injury, pneumothorax, PE, dissection, pericarditis, myocarditis, pneumothorax, aortic aneurysm, pneumonia, bronchitis, among others Workup independently interpreted and significant for nonactionable CBC. Chemistry with mild hypokalemia 3.2 up from previous. Kidney function within normal limits. Initial troponin 0.36. Independent interpretation of CT is without acute vascular injury, but she does have hematoma of the right cervical musculature. Final reads pending at time of handoff to oncoming physician independent interpretation of EKG shows sinus tachycardia no ST or T wave changes concerning for acute ischemia. NC, QRS, QT intervals within normal limits. Patient placed on continuous cardiac monitoring and continuous pulse ox with initial blood pressure 172/108, heart rate 107, saturation 97% on room air. Heart score 7. Prior to delta troponin and CT reads, care handed off to oncoming physician. Ground Hand disclaimer Much of this encounter note is an electronic cracker dough mixer spoken language to printed text. Electronic cracker dough mixer of the spoken language may permit errors. Although I have reviewed the note, some errors may still exist. <Corin Betancourt DO - Last Filed: 03/31/24 16:29> Vital Signs Vital Signs: 03/31/24 13:40 03/31/24 13:43 03/31/24 14:01 Temperature 98.0 F Temperature Source Oral Pulse Rate 106 H 99 H Pulse Rate [Radial] 107 H Respiratory Rate 18 Blood Pressure 172/108 H 131/77 Blood Pressure [Left Arm] 172/108 H Blood Pressure Mean [Left Arm] 129 Blood Pressure Source [Left Arm] Automatic Cuff Blood Pressure Position [Left Arm] Sitting 02 Sat by Pulse Oximetry 97 97 95 Oxygen Delivery Method Room Air Room Air Room Air 03/31/24 14:30 03/31/24 15:00 03/31/24 15:30 Temperature Temperature Source Pulse Rate 97 H 93 H 90 Pulse Rate [Radial] Respiratory Rate Blood Pressure 118/89 131/66 121/82 Blood Pressure [Left Arm] Blood Pressure Mean [Left Arm] Blood Pressure Source [Left Arm] Blood Pressure Position [Left Arm] 02 Sat by Pulse Oximetry 98 96 94 L Oxygen Delivery Method Room Air Room Air Room Air 03/31/24 16:00 Temperature Temperature Source Pulse Rate 85 Pulse Rate [Radial] Respiratory Rate Blood Pressure 116/80 Blood Pressure [Left Arm] Blood Pressure Mean [Left Arm] Blood Pressure Source [Left Arm] Blood Pressure Position [Left Arm] 02 Sat by Pulse Oximetry 95 Oxygen Delivery Method Room Air Lab Data Labs: Lab Results 03/31/24 13:43: WBC 9.7, RBC 5.31, Hgb 16.5 H, Hct 50.9 H, MCV 95.8, MCH 31.1, MCHC 32.4, RDW 13.4, Plt Count 341, MPV 8.6, Neut % (Auto) 54.9, Lymph % (Auto) 35.8, [place] % (Auto) 6.3, Eos % (Auto) 1.1, Baso % (Auto) 1.8, Neut # (Auto) 5.3, Lymph # (Auto) 3.5, [place] # (Auto) 0.6, Eos # (Auto) 0.1, Baso # (Auto) 0.2, PT 10.1, INR 0.93, APTT 25.1, Sodium 136, Potassium 3.2 L, Chloride 100, Carbon Dioxide 30, Anion Gap 9.2, BUN 17 D, Creatinine 1.00 D, Estimated Creat Clear 53, Estimated GFR 59, Est GFR ( Amer) 71 D, Glucose 236 H, Calcium 10.4 H, Total Bilirubin 0.7, AST 55 H, ALT 66, Alkaline Phosphatase 56, Troponin I 0.36 H, NT-Pro-B Natriuret Pep 75.1, Total Protein 7.3, Albumin 4.1, Globulin 3.2, Albumin/Globulin Ratio 1.3 03/31/24 13:54: Lactate 1.4 Response Orders (Tests/Meds): ED MEDICATIONS Discontinued Medications Generic Name Dose Route Start Last Admin Trade Name Freq PRN Reason Stop Dose Admin Iopamidol 100 ml 03/31/24 14:27 03/31/24 14:28 Iopamidol-370 (76%);100ml Bottle IV 03/31/24 14:28 100 ml ONCE ONE Administration Iopamidol 70 ml 03/31/24 14:27 03/31/24 14:29 Iopamidol-370 (76%);100ml Bottle IV 03/31/24 14:28 70 ml ONCE ONE Administration Sodium Chloride 50 ml 03/31/24 14:27 03/31/24 14:28 0.9 % Sodium Chloride 50 Ml Vial IV 03/31/24 14:28 40 ml ONCE ONE Administration Sodium Chloride 10 ml 03/31/24 14:27 03/31/24 14:28 Sodium Chloride 0.9% 10ml Syr (Rad Only) IV 03/31/24 14:28 10 ml ONCE ONE Administration Sodium Chloride 50 ml 03/31/24 14:27 03/31/24 14:28 0.9 % Sodium Chloride 50 Ml Vial IV 03/31/24 14:28 40 ml ONCE ONE Administration ORDERS Category Date Time Status CT angio chest - dissection Stat Cat Scan 03/31/24 13:[address] angio neck Stat Cat Scan 03/31/24 13:49 Completed CBC w/Auto Diff [Complete Blood Count Auto Diff] Stat Lab 03/31/24 13:43 Completed CMP [Comprehensive Metabolic Panel] Stat Lab 03/31/24 13:43 Completed Lactic Acid Stat Lab 03/31/24 13:54 Completed NT Pro Brain Natriuretic Pep. Stat Lab 03/31/24 13:43 Completed PT INR [Prothrombin Time INR] Stat Lab 03/31/24 13:43 Completed PTT [Activated Partial Thrombo Time] Stat Lab 03/31/24 13:43 Completed Trop I [Troponin I] Stat Lab 03/31/24 13:43 Completed Troponin I Q3H Lab 03/31/24 17:00 Ordered Troponin I Q3H Lab 03/31/24 20:00 Ordered MDM Narrative Medical Decision Narrative: 48-year-old female history of hypertension, hyperlipidemia, CAD status post stenting yesterday, 03/30 in her LAD, diabetes, CHF presenting with chest pain, right-sided neck swelling. Patient states that chest pain just after waking up this started in her sternum, radiates into her left shoulder and left armpit. Associate with shortness of breath, no nausea, vomiting, diaphoresis. Also having associated right-sided neck swelling where she had internal jugular vein catheterized. States that she is having voice changes, difficulty and pain with swallowing, difficulty ranging neck to the right side. Currently taking Plavix. Denies neurologic deficits. History was obtained via conversation with patient. On arrival, patient hemodynamically stable, alert, oriented x4, appropriate, GCS 15, moving all extremities spontaneously, pupils equal and reactive to light. Full physical exam performed and significant for patient appears to be anxious. Tachycardic, moderately hypertensive, neurologically intact including cranial nerves, cerebellar, motor and sensory exam. She does have hematoma on the right side of her neck just overlying great vessels superior to the clavicle. Hemostatic. No bruit or stridor appreciated. Patient's voice does appear raspy, she states that this is basically her normal voice. Still having difficulty swallowing. No pain with swallowing. Unable to range her neck to the right secondary to severe pain in the right side of her neck causing patient to become tearful. Cardiopulmonary exam within normal limits and pulses equal and symmetric. Differential includes reperfusion injury, stent thrombosis, coronary artery dissection, microvascular coronary artery disease, CHF, ACS, [place], coronary artery dissection, expanding neck hematoma, vascular injury, pneumothorax, PE, dissection, pericarditis, myocarditis, pneumothorax, aortic aneurysm, pneumonia, bronchitis, among others Workup independently interpreted and significant for nonactionable CBC. Chemistry with mild hypokalemia 3.2 up from previous. Kidney function within normal limits. Initial troponin 0.36. Independent interpretation of CT is without acute vascular injury, but she does have hematoma of the right cervical musculature. Final reads pending at time of handoff to oncoming physician independent interpretation of EKG shows sinus tachycardia no ST or T wave changes concerning for acute ischemia. NC, QRS, QT intervals within normal limits. Patient placed on continuous cardiac monitoring and continuous pulse ox with initial blood pressure 172/108, heart rate 107, saturation 97% on room air. Heart score 7. Prior to delta troponin and CT reads, care handed off to oncoming physician. Ground Hand disclaimer Much of this encounter note is an electronic cracker dough mixer spoken language to printed text. Electronic cracker dough mixer of the spoken language may permit errors. Although I have reviewed the note, some errors may still exist. DO Serafin: On my assessment of the patient, she is resting comfortably in no acute distress. CT scans demonstrated concern for right neck hematoma but no other acutely concerning abnormalities. No active extravasation noted on CT. She does have elevated troponin in the setting of chest pain and recent cardiac catheterization. Given all of these things, I feel that she would benefit from admission for continued monitoring. Previous ED provider had interactive discussion with cardiology regarding patient management. I had an interactive discussion with the hospitalist who admitted the patient for further evaluation and management. She is admitted in stable condition.
[2024-03-31 14:03] LABS: Basophils # 0.2 K/mm3 (0-0.2); Basophils % 1.8 % (0.1-2.0); Eosinophils # 0.1 K/mm3 (0.0-0.4); Eosinophils % 1.1 % (0.1-12.0); Hematocrit 50.9 % (37.0-47.0); Hemoglobin 16.5 g/dL (12.2-16.2); Lymphocytes # 3.5 K/mm3 (0.7-4.5); Lymphocytes % 35.8 % (10-50); Mean Corpuscular HGB Conc 32.4 g/dL (31.8-35.4); Mean Corpuscular Hemoglobin 31.1 pg (27.0-31.2); Mean Corpuscular Volume 95.8 fl (81-99); Mean Platelet Volume 8.6 fl (7.4-10.4); Monocytes # 0.6 K/mm3 (0.1-1.0); Monocytes % 6.3 % (1.7-9.3); Neutrophils # 5.3 K/mm3 (1.8-7.8); Neutrophils % 54.9 % (37.0-80.0); Platelet Count 341 K/mm3 (142-424); Red Blood Count 5.31 M/mm3 (4.20-5.40); Red Cell Distribution Width 13.4 % (11.5-17.5); White Blood Count 9.7 K/mm3 (4.8-10.8)
[2024-03-31 14:06] LABS: Activated Partial Thrombo Time 25.1 seconds (22.8-30.6); INR 0.93 (0.9-1.1); Prothrombin Time 10.1 seconds (10.1-12.5)
[2024-03-31 14:10] LABS: Chloride 100 mmol/L (98-107); Potassium 3.2 mmoL/L (3.5-5.1); Sodium 136 mmol/L (136-145)
[2024-03-31 14:12] LABS: Blood Urea Nitrogen 17 mg/dl (7-17); Creatinine Clearance Estimated 53 mL/min (50-200); Estimated Glomerular Filt Rate 59 ml/min (>60); GFR (African American) 71 ML/MIN (>60)
[2024-03-31 14:12] LABS: Lactic Acid 1.4 mmol/L (0.7-2.1)
[2024-03-31 14:13] LABS: Alanine Aminotransferase 66 U/L (12-78); Albumin Level 4.1 g/dl (3.5-5.0); Albumin/Globulin Ratio 1.3 (1.1-1.8); Alkaline Phosphatase 56 U/L (38-126); Anion Gap 9.2 mEq/L (5-15); Aspartate Amino Transferase 55 U/L (14-36); Bilirubin,Total 0.7 mg/dl (0.2-1.3); Calcium 10.4 mg/dl (8.4-10.2); Carbon Dioxide 30 mmol/L (22.0-30.0); Globulin 3.2 g/dL (1.3-3.2); Glucose 236 mg/dl (74-100); Total Protein,Serum 7.3 g/dl (6.3-8.2)
[2024-03-31] MEDS: IOPAMIDOL-370 (76%);100ML BOTTLE 100 ML IV (14:28)
[2024-03-31] MEDS: SODIUM CHLORIDE 0.9% 10ML SYR (RAD ONLY) 10 ML IV (14:28)
[2024-03-31] MEDS: 0.9 % SODIUM CHLORIDE 50 ML VIAL IV ×2 (14:28)
[2024-03-31] MEDS: IOPAMIDOL-370 (76%);100ML BOTTLE 70 ML IV (14:29)
[2024-03-31 14:34] LABS: Troponin I 0.36 ng/ml (0.00-0.034)
[2024-03-31 14:51] LABS: NT Pro Brain Natriuretic Pep. 75.1 pg/mL (0-125)
--- NOTE | 2024-03-31 15:38 | PC.NURSE ---
ROUNDED ON PT NO NEEDS AT THIS TIME,CALL LIGHT IN REACH
--- NOTE | 2024-03-31 16:17 | PC.NURSE ---
Attempted to call report. Nurse to call back.
--- NOTE | 2024-03-31 16:29 | PC.NURSE ---
Called report to lorena LOPEZ on second floor and answered all questions
--- NOTE | 2024-03-31 16:40 | PC.NURSE ---
arrived by w/c from ED
[2024-03-31 17:47] LABS: Troponin I 0.31 ng/ml (0.00-0.034)
[2024-03-31] MEDS: HEPARIN SODIUM 5,000 UNIT/ML VIAL 5000 UNIT SQ (18:10)
--- NOTE | 2024-03-31 20:25 | P.HP_ITS ---
History of Present Illness *Admission Date: 03/31/24 *Reason for visit:: chest pain *History of present illness: This is a 48-year-old female with a past medical history of CAD, systolic heart failure, tobacco abuse, hypertension, hyperlipidemia, obesity who presents emergency department today with complaints of midsternal chest pain And right neck pain. She underwent cardiac catheterization with LAD PCI yesterday with Dr. Elizabeth. She states that she had increased chest pain today with a central in nature with burning and radiation across her chest. She also states large hematoma to her right neck at her catheterization site. States that she took 2 nitro and had subsequent relief of chest pain but was worried secondary to her recent PCI. She endorses mild shortness of breath with it but no nausea vomiting or diaphoresis. States that related to her right neck pain, she has had difficulty with range of motion in her neck, pain with swallowing and some voice changes. Emergency department workup notable for CT scan of the neck with no extravasation noted but hematoma present. Laboratory evaluation stable for patient's present complaints. Troponins negative but downtrending. Given recurrent chest pain, cardiology was consulted and recommends observation overnight. At the time of my assessment after admission, patient is sitting at the bedside resting comfortably. EKG without ischemia, rhythm stable on bedside monitor. Patient denies any current chest pain and states that her right side of her neck swelling has improved. She currently has no complaints other than mild neck discomfort. [facility] Disclaimer: The information contained in this section may have been updated after the patient was seen, as this information can be updated by other users. Medical History Abnormal stress test DM2 (diabetes mellitus, type 2) Diastolic congestive heart failure Dyspnea Post-op pain Wrist pain, right Angina pectoris Hyperlipidemia Hypertension Influenza A Moderate persistent asthma Family history of asthma Smoking greater than 30 pack years Dyspnea on exertion Tobacco abuse counseling Allergic rhinitis Asthma Pulmonary emphysema Tobacco abuse COPD (chronic obstructive pulmonary disease) Gastroesophageal reflux disease Right arm pain Coronary artery disease Medical mgt DEC 2022 NICOLE to RCA, 11/22/2021. DAPT with ASA and Plavix. Abnormal electrocardiogram [ECG] [EKG] HTN (hypertension) Surgical History History of laparoscopy History of hand surgery History of tubal ligation History of heart artery stent Family History Other COPD (chronic obstructive pulmonary disease) Social History (Updated 03/31/24 @ 17:19 by Dayna Williamson RN) Smoking Status: Current every day smoker tobacco type: cigarettes packs per day: 1 second hand exposure: No alcohol intake: never substance use type: former substance user and crack/cocaine current occupational status: unemployed Travel in the last 8 weeks: Inside the [place] household members: spouse housing: house current occupational exposures/hazards: No Review of Systems Review of Systems Review of systems:: pertinent systems reviewed and negative unless documented below Meds Home Medications and Allergies Home Medications Medication Instructions Recorded Confirmed Type levonorgestrel 21 mcg/24 hr (up to 1 insert intrauterine ONCE Heart 02/03/18 03/31/24 History 8 years) 52 mg intrauterine device disease (Mirena) aspirin 81 mg tablet,delayed 81 mg PO DAILY heart health 10/01/21 03/31/24 History release ipratropium 0.5 mg-albuterol 3 mg 3 ml inhalation QID PRN shortness 03/07/22 03/31/24 Rx (2.5 mg base)/3 mL nebulization of breath or wheezing 90 days #270 soln mL albuterol sulfate 90 mcg/actuation 2 inh inhalation Q6H PRN shortness 11/28/22 03/31/24 Rx aerosol inhaler of breath or wheezing 90 days #8.5 grams fluticasone 250 mcg-salmeterol 50 1 inh inhalation BID . 12/31/22 03/31/24 History mcg/dose blistr powdr for inhalation (Advair Diskus) metoprolol succinate 100 mg 100 mg PO BID . 12/31/22 03/31/24 History tablet,extended release 24 hr montelukast 10 mg tablet 10 mg PO DAILY . 12/31/22 03/31/24 History sacubitril 97 mg-valsartan 103 mg 1 tab PO BID #60 tabs 06/18/23 03/31/24 Rx tablet (Entresto) dapagliflozin propanediol 10 mg 10 mg PO DAILY 90 days #90 tabs 07/22/23 03/31/24 Rx tablet (Farxiga) nitroglycerin 0.4 mg sublingual 0.4 mg sublingual Q5M PRN chest 09/17/23 03/31/24 Rx tablet pain #20 tabs atorvastatin 80 mg tablet 80 mg PO DAILY #30 tabs 09/22/23 03/31/24 Rx clopidogrel 75 mg tablet See Rx Instructions .Route 11/18/23 03/31/24 Rx .COMPLEX #90 tabs omeprazole 40 mg capsule,delayed See Rx Instructions .Route 12/22/23 03/31/24 Rx release .COMPLEX #90 caps tirzepatide 2.5 mg/0.5 mL 2.5 mg (0.5 mL) SQ WEEKLY #2 mL 02/12/24 03/31/24 Rx subcutaneous pen injector (Analilia) amlodipine 5 mg tablet 5 mg PO DAILY #30 tabs 03/17/24 03/31/24 Rx metolazone 2.5 mg tablet 2.5 mg PO DAILY #90 tabs 03/17/24 03/31/24 Rx bumetanide 2 mg tablet 2 mg PO DAILY 30 days #30 tabs 03/30/24 03/31/24 Rx metoprolol succinate 50 mg 50 mg PO DAILY 30 days #30 tabs 03/30/24 03/31/24 Rx tablet,extended release 24 hr spironolactone 100 mg tablet 100 mg PO DAILY 30 days #30 tabs 03/30/24 03/31/24 Rx (Aldactone) New Prescriptions to Start Prescriptions: Allergies Allergy/AdvReac Type Severity Reaction Status Date / Time oxycodone Allergy Unknown I-ITCHING Verified 03/17/24 12:48 Penicillins Allergy Unknown S-ANAPHYLAX Verified 03/17/24 12:48 IS pepper (genus Capsicum) Allergy Unknown I-RASH, Verified 03/17/24 12:48 [From PEPPERS (FOOD/DRUG)] BANANA PEPPERS bupropion AdvReac sick to Verified 03/17/24 12:48 stomach ozempic AdvReac Mild vomiting Uncoded 03/17/24 12:48 Exam Data for Last 24 hours Vital signs and Labs for Last 24 Hours: Temp Pulse Resp BP Pulse Ox O2 Del Method 98.6 F 88 17 126/74 98 Room Air 03/31/24 19:59 03/31/24 19:59 03/31/24 19:59 03/31/24 19:59 03/31/24 19:59 03/31/24 19:59 Laboratory Results - last 24 hr 03/31/24 13:43: WBC 9.7, RBC 5.31, Hgb 16.5 H, Hct 50.9 H, MCV 95.8, MCH 31.1, MCHC 32.4, RDW 13.4, Plt Count 341, MPV 8.6, Neut % (Auto) 54.9, Lymph % (Auto) 35.8, [place] % (Auto) 6.3, Eos % (Auto) 1.1, Baso % (Auto) 1.8, Neut # (Auto) 5.3, Lymph # (Auto) 3.5, [place] # (Auto) 0.6, Eos # (Auto) 0.1, Baso # (Auto) 0.2, PT 10.1, INR 0.93, APTT 25.1, Sodium 136, Potassium 3.2 L, Chloride 100, Carbon Dioxide 30, Anion Gap 9.2, BUN 17 D, Creatinine 1.00 D, Estimated Creat Clear 53, Estimated GFR 59, Est GFR ( Amer) 71 D, Glucose 236 H, Calcium 10.4 H, Total Bilirubin 0.7, AST 55 H, ALT 66, Alkaline Phosphatase 56, Troponin I 0.36 H, NT-Pro-B Natriuret Pep 75.1, Total Protein 7.3, Albumin 4.1, Globulin 3.2, Albumin/Globulin Ratio 1.3 03/31/24 13:54: Lactate 1.4 03/31/24 17:02: Troponin I 0.31 H I & O for Last 24 hours: Intake & Output 03/28/24 03/29/24 03/30/24 03/31/24 23:59 23:59 23:59 23:59 Intake Total 240 / 240 Balance 240 / 240 Weight 112.718 kg Constitutional Constitutional: no acute distress *Routine HEENT Exam Head: Present normocephalic Eye: Present EOMI and PERRL ENT: Present mucous membranes moist *Routine Neck Exam Neck: Present supple; Absent lymphadenopathy *Routine Respiratory Exam Respiratory: Present CTA bilaterally *Routine Cardiovascular Exam Cardiovascular: Present RRR *Routine Abdominal Exam Abdominal: Present soft and normoactive bowel sounds; Absent tenderness *Routine Rectal Exam Rectal:: deferred *Routine Genitalia Exam Genitalia:: deferred *Routine Extremities Exam Extremities: Absent cyanosis, clubbing or edema *Routine Skin Exam Skin: Present warm; Absent rash *Routine Neurological Exam Neurological: Present alert and oriented X3 Additional findings Additional findings: Edema noted to the right neck. Patient able to range neck to the right better than stated previously. No dysphonia noted. Swallowing mechanism intact. Denies headache or vision changes Assessment and Plan *Assessment and plan (1) Elevated troponin: Status: Acute Category: Medical Code(s): R79.89 - Other specified abnormal findings of blood chemistry (2) Chest pain: Status: Acute Qualifiers: Chest pain type: precordial pain Qualified Code(s): R07.2 - Precordial pain Category: Medical Code(s): R07.9 - Chest pain, unspecified (3) Hematoma of neck: Status: Acute Qualifiers: Encounter type: initial encounter Qualified Code(s): S10.93XA - Contusion of unspecified part of neck, initial encounter Category: Medical Code(s): S10.93XA - Contusion of unspecified part of neck, initial encounter (4) Hypokalemia: Status: Acute Category: Medical Code(s): E87.6 - Hypokalemia (5) Coronary artery disease: Problem Comment: Medical mgt DEC 2022 NICOLE to RCA, 11/22/2021. DAPT with ASA and Plavix. Status: Chronic Qualifiers: Coronary Disease-Associated Artery/Lesion type: [place] artery [place] vs. transplanted heart: [place] heart Associated angina: without angina Qualified Code(s): I25.10 - Atherosclerotic heart disease of [place] coronary artery without angina pectoris Category: Medical Code(s): I25.10 - Atherosclerotic heart disease of [place] coronary artery without angina pectoris (6) Diastolic congestive heart failure: Status: Acute Qualifiers: Heart failure chronicity: unspecified Qualified Code(s): I50.30 - Unspecified diastolic (congestive) heart failure Category: Medical Code(s): I50.30 - Unspecified diastolic (congestive) heart failure Plan #Elevated troponin #Chest pain #CAD Recent PCI to LAD yesterday. Continue DAPT, statin, BB, FARZANA Continue statin medication #Chronic diastolic heart failure Continue robust diuresis per cardiology #COPD Currently stable on room air Continue home bronchodilators #Neck hematoma Secondary to catheterization site Continue to monitor hematoma and airway Patient reports improvement in swelling since Continue antiplatelet therapy for severe cardiac disease DVT PPx ambulatory Full code
[2024-03-31] MEDS: FLUTICASONE/SALMETEROL 250/50MCG DISKUS 1 PUFF IH (20:26)
[2024-03-31 20:29] LABS: Troponin I 0.26 ng/ml (0.00-0.034)
[2024-03-31] MEDS: ATORVASTATIN 40MG TABLET 80 MG PO (20:53)
[2024-04-01] VITALS: BP 122/67; PULSE 80; PULSE 87; PULSE 90; RESP 17; TEMP 37.1; O2SAT 98
[2024-04-01] MEDS: HEPARIN SODIUM 5,000 UNIT/ML VIAL 5000 UNIT SQ ×2 (02:02→08:44)
[2024-04-01 04:00] VITALS: BP 125/69; PULSE 90; RESP 17; TEMP 36.8; O2SAT 95; BMI 44.3
[2024-04-01 04:02] LABS: Troponin I 0.29 ng/ml (0.00-0.034)
--- NOTE | 2024-04-01 05:18 | PC.NURSE ---
pt has rested well this shift, no c/o chest pain, ambulates in room independently, NSR on tele, dressing to right radial cath site C/D/I, no dressing noted to cath site on neck, pt c/o some swelling to neck, ice pack was applied to neck, O2 sats >95% on RA, call button is within reach
[2024-04-01] MEDS: FLUTICASONE/SALMETEROL 250/50MCG DISKUS 1 PUFF IH (06:15)
[2024-04-01 06:34] LABS: Basophils # 0.1 K/mm3 (0-0.2); Basophils % 1.5 % (0.1-2.0); Eosinophils # 0.2 K/mm3 (0.0-0.4); Eosinophils % 1.9 % (0.1-12.0); Hematocrit 47.7 % (37.0-47.0); Hemoglobin 15.8 g/dL (12.2-16.2); Lymphocytes # 3.5 K/mm3 (0.7-4.5); Mean Corpuscular Hemoglobin 31.1 pg (27.0-31.2); Mean Corpuscular Volume 94.1 fl (81-99); Mean Platelet Volume 8.2 fl (7.4-10.4); Monocytes # 0.5 K/mm3 (0.1-1.0); Neutrophils # 4.8 K/mm3 (1.8-7.8); Neutrophils % 52.6 % (37.0-80.0); Platelet Count 344 K/mm3 (142-424); Red Blood Count 5.07 M/mm3 (4.20-5.40); Red Cell Distribution Width 13.5 % (11.5-17.5); White Blood Count 9.1 K/mm3 (4.8-10.8)
[2024-04-01 06:56] LABS: Anion Gap 13.8 mEq/L (5-15); Blood Urea Nitrogen 18 mg/dl (7-17); Carbon Dioxide 27 mmol/L (22.0-30.0); Chloride 97 mmol/L (98-107); Creatinine Clearance Estimated 51 mL/min (50-200); Estimated Glomerular Filt Rate 59 ml/min (>60); GFR (African American) 71 ML/MIN (>60); Glucose 187 mg/dl (74-100); Sodium 135 mmol/L (136-145)
[2024-04-01 07:04] LABS: Potassium 2.8 mmoL/L (3.5-5.1)
[2024-04-01 08:00] VITALS: BP 113/63; PULSE 100; RESP 17; TEMP 36.7; O2SAT 97
--- NOTE | 2024-04-01 08:12 | HMH.PHAINT1 ---
Pharmacy Intervention Comments: MEDICATION RECONCILIATION COMPLETED ON PATIENT USING EXTERNAL FILL HISTORY FROM PHARMACY AND LIST FROM CARDIOLOGY OFFICE. -EVI MORRIS, CARMEND
[2024-04-01 08:18] VITALS: PULSE 100
[2024-04-01] MEDS: METOPROLOL SUCCINATE XL 50MG TABLET 50 MG PO (08:43)
[2024-04-01] MEDS: BUMETANIDE 1 MG TABLET 2 MG PO (08:43)
[2024-04-01] MEDS: SPIRONOLACTONE 25MG TABLET 100 MG PO (08:43)
[2024-04-01] MEDS: DAPAGLIFLOZIN PROPANEDIOL 10 MG TABLET PO (08:43)
[2024-04-01] MEDS: ASPIRIN EC 81MG TABLET 81 MG PO (08:43)
[2024-04-01] MEDS: SACUBITRIL/VALSARTAN 24-26MG TABLET 4 EACH PO (08:43)
[2024-04-01] MEDS: metOLazone 2.5MG TABLET 2.5 MG PO (08:44)
[2024-04-01] MEDS: ATORVASTATIN 40MG TABLET 80 MG PO (08:44)
[2024-04-01] MEDS: AMLODIPINE 5MG TABLET 5 MG PO (08:44)
[2024-04-01] MEDS: CLOPIDOGREL 75MG TAB 75 MG PO (08:44)
--- NOTE | 2024-04-01 09:41 | CT_ITS ---
FINAL REPORT TECHNIQUE: Thin section axial CT with IV contrast supplemented with multiplanar reconstruction under CT angiogram protocol. This study was performed with techniques to keep radiation doses as low as reasonably achievable (ALARA). Individualized dose reduction techniques using automated exposure control or adjustment of mA and/or kV according to the patient''s size were employed. NASCET criteria was utilized during interpretation. CLINICAL HISTORY: comparison from 03/31 - SCM hemorrhage COMPARISON: 03/31/2024 FINDINGS: Aortic arch: Arch shows no significant narrowing. Great vessel origins are widely patent. Right carotid: There is mild plaque at the carotid bulb without significant stenosis. Left carotid: There is mild plaque at the carotid bulb without significant stenosis. Vertebral: The right vertebral artery is dominant. No significant stenosis is present. There has been interval worsening of enlargement of the right sternocleidomastoid muscle now measuring up to 3.1 cm in thickness and previously measured 2.8 cm. This is likely related to worsening intramuscular hemorrhage or possibly myositis. IMPRESSION: Interval worsening of enlargement of the right sternocleidomastoid muscle likely related to worsening intramuscular hemorrhage or myositis. Reviewed, Interpreted and Dictated by Davide Ca III, MD Transcribed by Agnes Vu Authenticated and [facility]
[2024-04-01] MEDS: ONDANSETRON 4MG/2ML VIAL 4 MG IV (09:56)
[2024-04-01] MEDS: IOPAMIDOL-370 (76%);100ML BOTTLE 100 ML IV (10:23)
[2024-04-01] MEDS: 0.9 % SODIUM CHLORIDE 50 ML VIAL IV (10:23)
[2024-04-01] MEDS: SODIUM CHLORIDE 0.9% 10ML SYR (RAD ONLY) 10 ML IV (10:23)
--- NOTE | 2024-04-01 10:54 | P.CONCA_ITS ---
History of Present Illness History of Present Illness Consult date: 04/01/24 Requesting physician: Josselin Lim Consult reason: known to you Chief complaint: neck pain and chest pain Additional Medical History:: History of present illness: 48-year-old white female established patient of our office with history of multivessel CAD, obesity, diabetes, hypertension. Patient had worsening dyspnea on exertion as an outpatient recently and was referred for right and left heart cath which she underwent on 03/30. She received a stent to her LAD and right heart cath consistent with elevated EDP and pulmonary hypertension. Patient was discharged home in stable condition. She returned to the emergency room yesterday complaining severe right neck pain with bruising and swelling, difficulty moving her head and swallowing. CTA indicated hemorrhage in her sternocleidomastoid muscle versus myositis. Her hemoglobin was stable. She also complained of chest discomfort which was reproducible with movement. She did have mild elevation in her troponin of 0.2 which remained flat and was down from 0.3 the day prior. EKG shows sinus rhythm without acute changes. She was admitted overnight for observation. This morning she reports she is feeling significantly better and the swelling is almost completely resolved. She has full range of motion and is eating drinking relating without concern. [facility] Disclaimer: The information contained in this section may have been updated after the patient was seen, as this information can be updated by other users. Medical History Abnormal stress test DM2 (diabetes mellitus, type 2) Diastolic congestive heart failure Dyspnea Post-op pain Wrist pain, right Angina pectoris Hyperlipidemia Hypertension Influenza A Moderate persistent asthma Family history of asthma Smoking greater than 30 pack years Dyspnea on exertion Tobacco abuse counseling Allergic rhinitis Asthma Pulmonary emphysema Tobacco abuse COPD (chronic obstructive pulmonary disease) Gastroesophageal reflux disease Right arm pain Coronary artery disease Abnormal electrocardiogram [ECG] [EKG] HTN (hypertension) Surgical History History of laparoscopy History of hand surgery History of tubal ligation History of heart artery stent Family History Other COPD (chronic obstructive pulmonary disease) Social History Smoking Status: Current every day smoker tobacco type: cigarettes packs per day: 1 second hand exposure: No alcohol intake: never substance use type: former substance user and crack/cocaine current occupational status: unemployed Travel in the last 8 weeks: [place] the [place] household members: spouse housing: house current occupational exposures/hazards: No Review of Systems Constitutional Constitutional: Denies fatigue and Denies weakness Eyes Eyes: Denies loss of vision ENT Ears, Nose, Mouth, and Throat: Denies hearing loss and Denies vertigo *Cardiovascular Cardiovascular: Denies chest pain, Denies dyspnea and Denies syncope *Respiratory Respiratory: Denies cough and Denies dyspnea *Gastrointestinal Gastrointestinal: Denies change in stool character, Denies nausea and Denies vomiting *Musculoskeletal Musculoskeletal: Denies muscle weakness Comments: Right neck pain Integumentary/Breasts Skin/Breast: Denies changing lesions *Neurologic Neurologic: Denies loss of vision, Denies syncope, Denies vertigo and Denies weakness Endocrine Endocrine: Denies fatigue Exam Data for Last 24 hours Vital signs and Labs for Last 24 Hours: Temp Pulse Resp BP Pulse Ox O2 Del Method 98.0 F 100 H 17 113/63 97 Room Air 04/01/24 08:00 04/01/24 08:18 04/01/24 08:00 04/01/24 08:00 04/01/24 08:00 04/01/24 09:00 Laboratory Results - last 24 hr 03/31/24 13:43: WBC 9.7, RBC 5.31, Hgb 16.5 H, Hct 50.9 H, MCV 95.8, MCH 31.1, MCHC 32.4, RDW 13.4, Plt Count 341, MPV 8.6, Neut % (Auto) 54.9, Lymph % (Auto) 35.8, [place] % (Auto) 6.3, Eos % (Auto) 1.1, Baso % (Auto) 1.8, Neut # (Auto) 5.3, Lymph # (Auto) 3.5, [place] # (Auto) 0.6, Eos # (Auto) 0.1, Baso # (Auto) 0.2, PT 10.1, INR 0.93, APTT 25.1, Sodium 136, Potassium 3.2 L, Chloride 100, Carbon Dioxide 30, Anion Gap 9.2, BUN 17 D, Creatinine 1.00 D, Estimated Creat Clear 53, Estimated GFR 59, Est GFR ( Amer) 71 D, Glucose 236 H, Calcium 10.4 H, Total Bilirubin 0.7, AST 55 H, ALT 66, Alkaline Phosphatase 56, Troponin I 0.36 H, NT-Pro-B Natriuret Pep 75.1, Total Protein 7.3, Albumin 4.1, Globulin 3.2, Albumin/Globulin Ratio 1.3 03/31/24 13:54: Lactate 1.4 03/31/24 17:02: Troponin I 0.31 H 03/31/24 19:55: Troponin I 0.26 H 04/01/24 03:00: Troponin I 0.29 H 04/01/24 06:10: WBC 9.1, RBC 5.07, Hgb 15.8, Hct 47.7 H, MCV 94.1, MCH 31.1, MCHC 33.0, RDW 13.5, Plt Count 344, MPV 8.2, Neut % (Auto) 52.6, Lymph % (Auto) 39.0, [place] % (Auto) 5.0, Eos % (Auto) 1.9, Baso % (Auto) 1.5, Neut # (Auto) 4.8, Lymph # (Auto) 3.5, [place] # (Auto) 0.5, Eos # (Auto) 0.2, Baso # (Auto) 0.1, Sodium 135 L, Potassium 2.8 L*, Chloride 97 L, Carbon Dioxide 27, Anion Gap 13.8, BUN 18 H, Creatinine 1.00, Estimated Creat Clear 51, Estimated GFR 59, Est GFR ( Amer) 71, Glucose 187 H D, Calcium 10.0 I & O for Last 24 hours: Intake & Output 03/29/24 03/30/24 03/31/24 04/01/24 23:59 23:59 23:59 23:59 Intake Total 240 / 720 480 / 480 Output Total 0 / 0 0 / 0 Balance 240 / 720 480 / 480 Weight 248 lb 8 oz 241 lb Constitutional Constitutional: no acute distress and cooperative *Routine HEENT Exam Eye: Present PERRL *Routine Neck Exam Comments: Right SCM has healing puncture wound from right heart cath which is not bleeding. There is no surrounding bruising or swelling at this time but the area is slightly tender to palpation. She demonstrates full range of motion of her neck. *Routine Respiratory Exam Respiratory: Present CTA bilaterally; Absent accessory muscle use, wheezes or crackles *Routine Cardiovascular Exam Cardiovascular: Present RRR, Normal S1 and Normal S2; Absent murmur, gallop or rubs *Routine Abdominal Exam Abdominal: Present soft; Absent tenderness *Routine Extremities Exam Extremities: Present pulses intact; Absent cyanosis or edema *Routine Skin Exam Skin: Present intact; Absent erythema or wounds *Routine Neurological Exam Neurological: Present alert and oriented X3 Routine Psychiatric Exam Psychiatric: Present cooperative Meds Home Medications and Allergies Home Medications Medication Instructions Recorded Confirmed Type levonorgestrel 21 mcg/24 hr (up to 1 insert intrauterine ONCE 02/03/18 04/01/24 History 8 years) 52 mg intrauterine device (Mirena) aspirin 81 mg tablet,delayed 81 mg PO DAILY 10/01/21 04/01/24 History release albuterol sulfate 90 mcg/actuation 2 inh inhalation Q6H PRN shortness 11/28/22 03/31/24 Rx aerosol inhaler of breath or wheezing 90 days #8.5 grams fluticasone 250 mcg-salmeterol 50 1 inh inhalation BID 12/31/22 04/01/24 History mcg/dose blistr powdr for inhalation (Advair Diskus) montelukast 10 mg tablet 10 mg PO DAILY 12/31/22 04/01/24 History sacubitril 97 mg-valsartan 103 mg 1 tab PO BID #60 tabs 06/18/23 04/01/24 Rx tablet (Entresto) dapagliflozin propanediol 10 mg 10 mg PO DAILY 90 days #90 tabs 07/22/23 04/01/24 Rx tablet (Farxiga) nitroglycerin 0.4 mg sublingual 0.4 mg sublingual Q5M PRN chest 09/17/23 04/01/24 Rx tablet pain #20 tabs atorvastatin 80 mg tablet 80 mg PO DAILY #30 tabs 09/22/23 04/01/24 Rx tirzepatide 2.5 mg/0.5 mL 2.5 mg (0.5 mL) SQ WEEKLY #2 mL 02/12/24 04/01/24 Rx subcutaneous pen injector (Analilia) amlodipine 5 mg tablet 5 mg PO DAILY #30 tabs 03/17/24 04/01/24 Rx metolazone 2.5 mg tablet 2.5 mg PO DAILY #90 tabs 03/17/24 04/01/24 Rx bumetanide 2 mg tablet 2 mg PO DAILY 30 days #30 tabs 03/30/24 04/01/24 Rx metoprolol succinate 50 mg 50 mg PO DAILY 30 days #30 tabs 03/30/24 04/01/24 Rx tablet,extended release 24 hr spironolactone 100 mg tablet 100 mg PO DAILY 30 days #30 tabs 03/30/24 04/01/24 Rx (Aldactone) clopidogrel 75 mg tablet 75 mg PO DAILY 04/01/24 04/01/24 History omeprazole 40 mg capsule,delayed 40 mg PO DAILY 04/01/24 04/01/24 History release New Prescriptions to Start Prescriptions: Allergies Allergy/AdvReac Type Severity Reaction Status Date / Time oxycodone Allergy Unknown I-ITCHING Verified 03/17/24 12:48 Penicillins Allergy Unknown S-ANAPHYLAX Verified 03/17/24 12:48 IS pepper (genus Capsicum) Allergy Unknown I-RASH, Verified 03/17/24 12:48 [From PEPPERS (FOOD/DRUG)] BANANA PEPPERS bupropion AdvReac sick to Verified 03/17/24 12:48 stomach ozempic AdvReac Mild vomiting Uncoded 03/17/24 12:48 Assessment and Plan *Assessment and plan (1) Hematoma of neck: Status: Acute Qualifiers: Encounter type: initial encounter Qualified Code(s): S10.93XA - Contusion of unspecified part of neck, initial encounter Category: Medical Code(s): S10.93XA - Contusion of unspecified part of neck, initial encounter (2) Chronic systolic heart failure: Status: Acute Category: Medical Code(s): I50.22 - Chronic systolic (congestive) heart failure (3) Coronary artery disease: Problem Comment: Medical mgt DEC 2022 NICOLE to RCA, 11/22/2021. DAPT with ASA and Plavix. Status: Chronic Qualifiers: Associated angina: without angina Coronary Disease-Associated Artery/Lesion type: [place] artery [place] vs. transplanted heart: [place] heart Qualified Code(s): I25.10 - Atherosclerotic heart disease of [place] coronary artery without angina pectoris Category: Medical Code(s): I25.10 - Atherosclerotic heart disease of 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: unspecified chcf insulin use status Qualified Code(s): E11.69 - Type 2 diabetes mellitus with other specified complication Category: Medical Code(s): E11.9 - Type 2 diabetes mellitus without complications (5) Diastolic congestive heart failure: Status: Acute Qualifiers: Heart failure chronicity: unspecified Qualified Code(s): I50.30 - Unspecified diastolic (congestive) heart failure Category: Medical Code(s): I50.30 - Unspecified diastolic (congestive) heart failure Plan Hematoma of Neck - small hemorrhage in right SCM during RHC - H/H stable and symptoms resolved - repeat CTA neck 04/01: worsening intramuscular hemorrhage. - Plan: pt needs to remain inpatient, H/H q12h and repeat neck CTA tomorrow. MV-CAD s/p LAD stent 03/31 - CCS = 0 - EKG: SR without acute changes - [facility] 03/2024 - severe prox to mid LAD stented successfully - Cont DAPT, BB, Statin, RF modification HFpEF - ECHO 06/2023 - normal Bi-V function but it showed lipomatous hypertrophy of interatrial septum - [facility] 03/2024 - Elevated LVEDP (30-35) pulmonary occlusion pressure of 32 - not in acute exacerbation, CTA chest shows no edema -cont home meds of Entresto, Aldactone, Farxiga, Metolazone. She may need additional diuretics but with frequent contrast over past 48h will hold off for now to avoid KATHY. Obesity, BMI 44 - cont weight loss efforts with GLP-1 04/01 summary: Pt's symptoms resolved, stable labs, benign physical exam but CT shows worsening bleed. Will keep in house and repeat scan tomorrow. check CBC q12. Cannot stop ASA/Plavix right now due to prox LAD Stent yesterday. Will monitor closely.
[2024-04-01] MEDS: POTASSIUM CHLORIDE 20MEQ TAB 60 MEQ PO (11:03)
[2024-04-01] MEDS: KCl 10mEq/100ml 100 ML 100 MEQ IV (11:03)
[2024-04-01 11:42] VITALS: BP 99/64; PULSE 72; RESP 18; TEMP 36.6; O2SAT 95
--- NOTE | 2024-04-01 14:45 | PC.NURSE ---
PATIENT REQUESTING TO LEAVE TONIGHT. NO LONGER WANTS TO STAY IN THE HOSPITAL. ARSH BARBOZA SPOKE WITH PATIENT AND EXPLAINED CT RESULTS AND THE RISK OF LEAVING. AMA SIGNED AND IV REMOVED. KENIA AND ARSH BARBOZA NOTIFIED.
--- NOTE | 2024-04-07 10:38 | P.DS_ITS ---
General Admission date:: 03/31/24 Discharge date: 04/01/24 HPI HPI HPI: This is a 48-year-old female with a past medical history of CAD, systolic heart failure, tobacco abuse, hypertension, hyperlipidemia, obesity who presents emergency department today with complaints of midsternal chest pain And right neck pain. She underwent cardiac catheterization with LAD PCI yesterday with Dr. Elizabeth. She states that she had increased chest pain today with a central in nature with burning and radiation across her chest. She also states large hematoma to her right neck at her catheterization site. States that she took 2 nitro and had subsequent relief of chest pain but was worried secondary to her recent PCI. She endorses mild shortness of breath with it but no nausea vomiting or diaphoresis. States that related to her right neck pain, she has had difficulty with range of motion in her neck, pain with swallowing and some voice changes. Emergency department workup notable for CT scan of the neck with no extravasation noted but hematoma present. Laboratory evaluation stable for patient's present complaints. Troponins negative but downtrending. Given recurrent chest pain, cardiology was consulted and recommends observation overnight. At the time of my assessment after admission, patient is sitting at the bedside resting comfortably. EKG without ischemia, rhythm stable on bedside monitor. P atient denies any current chest pain and states that her right side of her neck swelling has improved. She currently has no complaints other than mild neck discomfort. Hospital Course Hospital Course Hospital Course: patient was being evaluted for R neck hematoma at site of cardiac cath, CT scan showed worsening, and cardiology recommended inpatient monitoring, but patient left AMA patient left AMA Exam Data for Last 24 hours Vital signs and Labs for Last 24 Hours: Temp Pulse Resp BP Pulse Ox O2 Del Method 97.8 F 72 18 99/64 L 95 Room Air 04/01/24 11:42 04/01/24 11:42 04/01/24 11:42 04/01/24 11:42 04/01/24 11:42 04/01/24 13:00 DS: Diagnosis Discharge Diagnosis (1) Hematoma of neck: Status: Acute Code(s): S10.93XA - Contusion of unspecified part of neck, initial encounter Qualifiers: Encounter type: initial encounter Qualified Code(s): S10.93XA - Contusion of unspecified part of neck, initial encounter (2) Chronic systolic heart failure: Status: Acute Code(s): I50.22 - Chronic systolic (congestive) heart failure (3) Coronary artery disease: Status: Chronic Code(s): I25.10 - Atherosclerotic heart disease of [place] coronary artery without angina pectoris Qualifiers: Coronary Disease-Associated Artery/Lesion type: [place] artery [place] vs. transplanted heart: [place] heart Associated angina: without angina Qualified Code(s): I25.10 - Atherosclerotic heart disease of [place] coronary artery without angina pectoris Problem details: Medical mgt DEC 2022 NICOLE to RCA, 11/22/2021. DAPT with ASA and Plavix. (4) DM2 (diabetes mellitus, type 2): Status: Acute Code(s): E11.9 - Type 2 diabetes mellitus without complications Qualifiers: Diabetes mellitus long term care pharmacist insulin use: unspecified skilled nursing insulin use status Diabetes mellitus complication status: with other specified complication Qualified Code(s): E11.69 - Type 2 diabetes mellitus with other specified complication (5) Diastolic congestive heart failure: Status: Acute Code(s): I50.30 - Unspecified diastolic (congestive) heart failure Qualifiers: Heart failure chronicity: unspecified Qualified Code(s): I50.30 - Unspecified diastolic (congestive) heart failure Meds Home Medications and Allergies Home Medications Medication Instructions Recorded Confirmed Type levonorgestrel 21 mcg/24 hr (up to 1 insert intrauterine ONCE 02/03/18 04/06/24 History 8 years) 52 mg intrauterine device (Mirena) aspirin 81 mg tablet,delayed 81 mg PO DAILY 10/01/21 04/06/24 History release albuterol sulfate 90 mcg/actuation 2 inh inhalation Q6H PRN shortness 11/28/22 04/06/24 Rx aerosol inhaler of breath or wheezing 90 days #8.5 grams fluticasone 250 mcg-salmeterol 50 1 inh inhalation BID 12/31/22 04/06/24 History mcg/dose blistr powdr for inhalation (Advair Diskus) montelukast 10 mg tablet 10 mg PO DAILY 12/31/22 04/06/24 History dapagliflozin propanediol 10 mg 10 mg PO DAILY 90 days #90 tabs 07/22/23 04/06/24 Rx tablet (Farxiga) nitroglycerin 0.4 mg sublingual 0.4 mg sublingual Q5M PRN chest 09/17/23 04/06/24 Rx tablet pain #20 tabs atorvastatin 80 mg tablet 80 mg PO DAILY #30 tabs 09/22/23 04/06/24 Rx tirzepatide 2.5 mg/0.5 mL 2.5 mg (0.5 mL) SQ WEEKLY #2 mL 02/12/24 04/06/24 Rx subcutaneous pen injector (Mounjaro) amlodipine 5 mg tablet 5 mg PO DAILY #30 tabs 03/17/24 04/06/24 Rx metolazone 2.5 mg tablet 2.5 mg PO DAILY #90 tabs 03/17/24 04/06/24 Rx bumetanide 2 mg tablet 2 mg PO DAILY 30 days #30 tabs 03/30/24 04/06/24 Rx metoprolol succinate 50 mg 50 mg PO DAILY 30 days #30 tabs 03/30/24 04/06/24 Rx tablet,extended release 24 hr spironolactone 100 mg tablet 100 mg PO DAILY 30 days #30 tabs 03/30/24 04/06/24 Rx (Aldactone) clopidogrel 75 mg tablet 75 mg PO DAILY 04/01/24 04/06/24 History omeprazole 40 mg capsule,delayed 40 mg PO DAILY 04/01/24 04/06/24 History release sacubitril 97 mg-valsartan 103 mg 1 tab PO BID #60 tabs 04/06/24 Rx tablet (Entresto) New Prescriptions to Start Prescriptions: Allergies Allergy/AdvReac Type Severity Reaction Status Date / Time oxycodone Allergy Unknown I-ITCHING Verified 04/06/24 14:52 Penicillins Allergy Unknown S-ANAPHYLAX Verified 04/06/24 14:52 IS pepper (genus Capsicum) Allergy Unknown I-RASH, Verified 04/06/24 14:52 [From PEPPERS (FOOD/DRUG)] BANANA PEPPERS bupropion AdvReac sick to Verified 04/06/24 14:52 stomach ozempic AdvReac Mild vomiting Uncoded 04/06/24 14:52 Discharge Plan Disposition Patient Disposition: Left Against Medical Advice Providers Admit Provider: Josselin Lim Attending Provider: Josselin Lim
== END 2024-04-01 14:48 | disposition left against medical advice (07) ==
LOC: ER 15:00 → 2ND 16:29
PROVIDERS: Emergency Medicine; Admitting Provider Internal Medicine; Emergency Provider Emergency Medicine; PCP Student in an Organized Health Care Education/Training Program; Visit Provider Internal Medicine
DX: I97.630 Postprocedural hematoma of a circulatory system organ or structure following a cardiac catheterization (principal); R07.9 Chest pain, unspecified; E78.5 Hyperlipidemia, unspecified; I25.10 Atherosclerotic heart disease of native coronary artery without angina pectoris; Z95.5 Presence of coronary angioplasty implant and graft; E11.9 Type 2 diabetes mellitus without complications; I11.0 Hypertensive heart disease with heart failure; E66.9 Obesity, unspecified; Z68.41 Body mass index [BMI] 40.0-44.9, adult; E87.6 Hypokalemia; Y84.8 Other medical procedures as the cause of abnormal reaction of the patient, or of later complication, without mention of misadventure at the time of the procedure; J43.9 Emphysema, unspecified; I50.22 Chronic systolic (congestive) heart failure
CPT/HCPCS: 36415; 70498; 71275; 80048; 80053; 83605; 83880; 84484; 85025; 85610; 85730; 93005; 99285; G0378; J2405; Q9967

== ENCOUNTER 2024-04-06 15:27 | Outpatient (CLI) | payer OTHER, SELFPAY ==
[2024-04-06 15:50] LABS: Basophils # 0.1 K/mm3 (0-0.2); Basophils % 1.1 % (0.1-2.0); Eosinophils # 0.1 K/mm3 (0.0-0.4); Eosinophils % 1.4 % (0.1-12.0); Hematocrit 46.3 % (37.0-47.0); Hemoglobin 15.2 g/dL (12.2-16.2); Lymphocytes # 3.5 K/mm3 (0.7-4.5); Lymphocytes % 34.5 % (10-50); Mean Corpuscular HGB Conc 32.9 g/dL (31.8-35.4); Mean Corpuscular Hemoglobin 30.5 pg (27.0-31.2); Mean Corpuscular Volume 92.7 fl (81-99); Monocytes # 0.6 K/mm3 (0.1-1.0); Monocytes % 5.5 % (1.7-9.3); Neutrophils # 5.8 K/mm3 (1.8-7.8); Neutrophils % 57.5 % (37.0-80.0); Platelet Count 326 K/mm3 (142-424); Red Cell Distribution Width 13.5 % (11.5-17.5); White Blood Count 10.1 K/mm3 (4.8-10.8)
[2024-04-06 16:23] LABS: Anion Gap 13.9 mEq/L (5-15); Blood Urea Nitrogen 18 mg/dl (7-17); Carbon Dioxide 29 mmol/L (22.0-30.0); Chloride 98 mmol/L (98-107); Estimated Glomerular Filt Rate 66 ml/min (>60); GFR (African American) 80 ML/MIN (>60); Glucose 122 mg/dl (74-100); Potassium 3.9 mmoL/L (3.5-5.1); Sodium 137 mmol/L (136-145)
== END 2024-04-06 23:59 | disposition home or self-care (01) ==
LOC: LAB 15:27
PROVIDERS: PCP Student in an Organized Health Care Education/Training Program; Visit Provider Physician Assistant
DX: R06.09 Other forms of dyspnea (principal); I25.10 Atherosclerotic heart disease of native coronary artery without angina pectoris; T14.8XXA Other injury of unspecified body region, initial encounter; M79.12 Myalgia of auxiliary muscles, head and neck; M60.9 Myositis, unspecified; I50.22 Chronic systolic (congestive) heart failure; E11.69 Type 2 diabetes mellitus with other specified complication; I50.30 Unspecified diastolic (congestive) heart failure; I51.89 Other ill-defined heart diseases; R60.9 Edema, unspecified; E78.2 Mixed hyperlipidemia; K21.9 Gastro-esophageal reflux disease without esophagitis; Z72.0 Tobacco use; E66.01 Morbid (severe) obesity due to excess calories; Z68.41 Body mass index [BMI] 40.0-44.9, adult; Z79.899 Other long term (current) drug therapy
CPT/HCPCS: 36415; 80048; 85025

== ENCOUNTER 2024-04-28 07:35 | Outpatient (CLI) | payer OTHER, SELFPAY ==
--- NOTE | 2024-04-28 07:41 | CT_ITS ---
FINAL REPORT TECHNIQUE: Thin section axial CT with IV contrast supplemented with multiplanar reconstruction under CT angiogram protocol. This study was performed with techniques to keep radiation doses as low as reasonably achievable (ALARA). Individualized dose reduction techniques using automated exposure control or adjustment of mA and/or kV according to the patient''s size were employed. NASCET criteria was utilized during interpretation. CLINICAL HISTORY: intramusclar hematoma of sternocleidomastoid post heart cath 1.5 mnths ago COMPARISON: 04/01/2024 FINDINGS: Aortic arch: Arch shows no significant narrowing. Great vessel origins are widely patent. Right carotid: There is plaque at the carotid bifurcation without significant stenosis. Left carotid: There is plaque the carotid bifurcation without significant stenosis. Vertebral: The right vertebral artery is dominant. No significant stenosis is present. There has been interval improvement in the enlargement of the right sternocleidomastoid muscle consistent with improved intramuscular hematoma. There is persistent mild prominence of the right sternocleidomastoid muscle. IMPRESSION: Interval improvement in the enlargement of the right sternocleidomastoid muscle consistent with improved intramuscular hematoma. Reviewed, Interpreted and Dictated by Davide Ca III, MD Transcribed by Susan Valle Authenticated and [facility]
[2024-04-28] MEDS: 0.9 % SODIUM CHLORIDE 50 ML VIAL IV (08:02)
[2024-04-28] MEDS: SODIUM CHLORIDE 0.9% 10ML SYR (RAD ONLY) 10 ML IV (08:03)
[2024-04-28] MEDS: IOPAMIDOL-370 (76%);100ML BOTTLE 100 ML IV (08:03)
== END 2024-04-28 23:59 | disposition home or self-care (01) ==
LOC: RAD 07:36
PROVIDERS: PCP Student in an Organized Health Care Education/Training Program; Visit Provider Physician Assistant
DX: M79.12 Myalgia of auxiliary muscles, head and neck (principal)
CPT/HCPCS: 70498; Q9967

== ENCOUNTER → 2024-06-18 08:30 | Outpatient (CLI) | payer OTHER, SELFPAY | LOC: SL 08:31 | PROVIDERS: PCP Student in an Organized Health Care Education/Training Program; Visit Provider Physician Assistant | DX: G47.33 Obstructive sleep apnea (adult) (pediatric) (principal) | CPT/HCPCS: G0399 ==

== ENCOUNTER 2024-09-07 11:51 | Emergency (ER) | payer OTHER, SELFPAY ==
[2024-09-07 13:10] VITALS: BP 162/91; PULSE 85; RESP 20; TEMP 36.6; O2SAT 97; BMI 44.6
--- NOTE | 2024-09-07 13:41 | ED_ITS ---
Discharge Plan Disposition Patient Disposition: Home, Self-Care Prescriptions Prescriptions: New azithromycin [Zithromax Z-Leandro] 250 mg tablet See Rx Instructions .ROUTE .COMPLEX 5 Days Qty: 6 0RF Rx Instructions: For 250 mg dose pack: take 500 mg today (day 1), then 250 mg for 4 days (days 2-5) benzonatate 100 mg capsule 100 mg PO TID PRN (Reason: cough) Qty: 30 0RF methylprednisolone [Medrol (Leandro)] 4 mg tablets,dose pack See Rx Instructions .Route .COMPLEX 6 Days Qty: 21 0RF Rx Instructions: taper pack; No Action levonorgestrel [Mirena] 20 mcg/24 hr (5 years) intrauterine device 1 insert INTRAUTERI ONCE aspirin 81 mg tablet,delayed release (DR/EC) 81 mg PO DAILY amlodipine 5 mg tablet 5 mg PO DAILY Qty: 30 2RF metolazone 2.5 mg tablet 2.5 mg PO DAILY Qty: 90 3RF nicotine (polacrilex) 4 mg gum 4 mg buccal Q2H Qty: 40 3RF atorvastatin 80 mg tablet 80 mg PO DAILY Qty: 30 2RF albuterol sulfate 90 mcg/actuation HFA aerosol inhaler 2 inh INHALATION Q6H PRN (Reason: shortness of breath or wheezing) 90 Days Qty: 8.5 3RF nitroglycerin 0.4 mg tablet, sublingual 0.4 mg SUBLINGUAL Q5M PRN (Reason: chest pain) Qty: 20 0RF Rx Instructions: do not exceed 3 doses per episode Entresto 97-103 mg tablet 1 tab PO BID Qty: 60 3RF Farxiga 10 mg tablet 10 mg PO DAILY 90 Days Qty: 90 1RF Mounjaro 2.5 mg/0.5 mL pen injector 2.5 mg SQ WEEKLY Qty: 2 2RF fluticasone propion-salmeterol [Advair Diskus] 250-50 mcg/dose blister with device 1 inh INHALATION BID montelukast 10 mg tablet 10 mg PO DAILY metoprolol succinate 50 mg Tablet Extended Release 24 Hr 50 mg PO DAILY 30 Days Qty: 30 6RF spironolactone [Aldactone] 100 mg Tablet 100 mg PO DAILY 30 Days Qty: 30 6RF bumetanide 2 mg Tablet 2 mg PO DAILY 30 Days Qty: 30 6RF clopidogrel 75 mg tablet 75 mg PO DAILY Patient Comments: TAKE 1 TABLET BY MOUTH ONCE DAILY omeprazole 40 mg capsule,delayed release(DR/EC) 40 mg PO DAILY Patient Comments: TAKE 1 CAPSULE BY MOUTH ONCE DAILY Referrals Follow up/Referrals: Kala Lozano PA [Primary Care Provider] - See instructions Activity Restrictions/Add. Instructions Additional Instructions/Restrictions: * Start antibiotic today. Be sure to complete entire prescription even if feeling better * Monitor temp. Tylenol every 4 hours as needed and / or ibuprofen every 6 hours as needed ( As long as your primary care physician has told you that it ok to take both. For fever/aches/pains ER if no less than 101 despite Tylenol or Motrin * Humidifier/vaporizer or hot steamy shower * *Tessalon Perles will not cause drowsiness but use at bedtime to help stop cough so that you may get some rest. *Start steroid today. Helps with inflammation therefore, cough and wheezing. Follow directions on the package. Reviewed side effects. Patient reports taking them before. Follow up IMMEDIATELY for new or worsening of symptoms OR no noticeable improvement over the next 48-72 hours. 911 immediately for any life threatening symptoms such as chest pain or difficulty breathing Clinical Impressions Clinical Impression: Bronchitis Instructions Patient Instructions: DI for Sinusitis, Acute Bronchitis Print Language Print Language: Burmese Discharge ED Provider: Latanya Michael [facility] General Stated complaint: cough, congestion Mode of Arrival: Ambulatory Source of Information: Patient Limitations: No Limitations Time Seen by Provider: 09/07/24 13:41 Description of Symptoms (Recalled from Triage Doc. by RN): PATIENT C/O COUGH, CONGESTION, AND SORE THROAT THAT STARTED 1.5 WEEKS AGO HEENT Symptoms (Recalled from RN notes): Yes Resp Symptoms (Recalled from RN notes): Yes Skin Symptoms (Recalled from RN notes): No MS Symptoms (Recalled from RN notes): No Functional Status (Recalled from RN notes): WNL History of Present Illness Provider Complaint: Patient states that she has been having cough, chest congestion, scratchy throat and nasal congestion for almost 2 weeks so todya when it wasnt any better she came in Related Data Home Medications ?Medication ?Instructions ?Recorded ?Confirmed levonorgestrel 21 mcg/24 hr (up to 1 insert intrauterine ONCE 02/03/18 05/03/24 8 years) 52 mg intrauterine device (Mirena) aspirin 81 mg tablet,delayed 81 mg PO DAILY 10/01/21 05/03/24 release fluticasone 250 mcg-salmeterol 50 1 inh inhalation BID 12/31/22 05/03/24 mcg/dose blistr powdr for inhalation (Advair Diskus) montelukast 10 mg tablet 10 mg PO DAILY 12/31/22 05/03/24 clopidogrel 75 mg tablet 75 mg PO DAILY 04/01/24 05/03/24 omeprazole 40 mg capsule,delayed 40 mg PO DAILY 04/01/24 05/03/24 release Previous Rx's ?Medication ?Instructions ?Recorded albuterol sulfate 90 mcg/actuation 2 inh inhalation Q6H PRN shortness 11/28/22 aerosol inhaler of breath or wheezing 90 days #8.5 grams nitroglycerin 0.4 mg sublingual 0.4 mg sublingual Q5M PRN chest 09/17/23 tablet pain #20 tabs atorvastatin 80 mg tablet 80 mg PO DAILY #30 tabs 09/22/23 amlodipine 5 mg tablet 5 mg PO DAILY #30 tabs 03/17/24 metolazone 2.5 mg tablet 2.5 mg PO DAILY #90 tabs 03/17/24 bumetanide 2 mg tablet 2 mg PO DAILY 30 days #30 tabs 03/30/24 metoprolol succinate 50 mg 50 mg PO DAILY 30 days #30 tabs 03/30/24 tablet,extended release 24 hr spironolactone 100 mg tablet 100 mg PO DAILY 30 days #30 tabs 03/30/24 (Aldactone) sacubitril 97 mg-valsartan 103 mg 1 tab PO BID #60 tabs 04/06/24 tablet (Entresto) dapagliflozin propanediol 10 mg 10 mg PO DAILY 90 days #90 tabs 04/20/24 tablet (Farxiga) nicotine (polacrilex) 4 mg gum 4 mg buccal Q2H #40 ea 05/03/24 tirzepatide 2.5 mg/0.5 mL 2.5 mg (0.5 mL) SQ WEEKLY #2 mL 08/31/24 subcutaneous pen injector (Mounjaro) azithromycin 250 mg tablet See Rx Instructions PO .COMPLEX 5 09/07/24 (Zithromax Z-Leandro) days #6 tabs benzonatate 100 mg capsule 100 mg PO TID PRN cough #30 caps 09/07/24 methylprednisolone 4 mg tablets in See Rx Instructions .Route 09/07/24 a dose pack (Medrol (Leandro)) .COMPLEX 6 days #21 tabs Allergies Allergy/AdvReac Type Severity Reaction Status Date / Time oxycodone Allergy Unknown I-ITCHING Verified 05/03/24 13:02 Penicillins Allergy Unknown S-ANAPHYLAX Verified 05/03/24 13:02 IS pepper (genus Capsicum) Allergy Unknown I-RASH, Verified 05/03/24 13:02 [From PEPPERS (FOOD/DRUG)] BANANA PEPPERS codeine Allergy Swelling Verified 09/07/24 13:25 of Lip/Tongue/Throat semaglutide [From Ozempic] Allergy Unknown Verified 09/07/24 13:25 allergy reaction bupropion AdvReac sick to Verified 05/03/24 13:02 stomach Worker's Comp Is this a Worker's Comp case?: No [facility] Disclaimer: The information contained in this section may have been updated after the patient was seen, as this information can be updated by other users. Medical History Abnormal stress test DM2 (diabetes mellitus, type 2) Diastolic congestive heart failure Dyspnea Post-op pain Wrist pain, right Angina pectoris Hyperlipidemia Hypertension Influenza A Moderate persistent asthma Family history of asthma Smoking greater than 30 pack years Dyspnea on exertion Tobacco abuse counseling Allergic rhinitis Asthma Pulmonary emphysema Tobacco abuse COPD (chronic obstructive pulmonary disease) Gastroesophageal reflux disease Right arm pain Coronary artery disease Medical mgt DEC 2022 NICOLE to RCA, 11/22/2021. DAPT with ASA and Plavix. Abnormal electrocardiogram [ECG] [EKG] HTN (hypertension) Surgical History History of laparoscopy History of hand surgery History of tubal ligation History of heart artery stent Family History Other COPD (chronic obstructive pulmonary disease) Social History Smoking Status: Current every day smoker tobacco type: cigarettes packs per day: 1 second hand exposure: No alcohol intake: never substance use type: former substance user and crack/cocaine current occupational status: unemployed Travel in the last 8 weeks: Inside the [place] household members: spouse housing: house current occupational exposures/hazards: No ROS Obtained: Yes All systems reviewed & no additional complaints except as documented and Yes Systems reviewed as appropriate & no additional complaints except as documented Constitutional Constitutional: Reports system reviewed and no additional complaints, except as documented and Reports as per HPI ENT Ears, Nose, Mouth, and Throat: Reports system reviewed and no additional complaints, except as documented, Reports as per HPI, Reports nasal congestion, Reports sinus pressure and Reports sore throat Cardiovascular Cardiovascular: Reports system reviewed and no additional complaints, except as documented and Reports as per HPI Respiratory Respiratory: Reports system reviewed and no additional complaints, except as documented, Reports as per HPI, Denies shortness of breath, Reports chest congestion and Reports cough Gastrointestinal Gastrointestingal: Reports system reviewed and no additional complaints, except as documented and as per HPI Physical Exam General General appearance: alert and in no apparent distress ENT ENT exam: Present mucous membranes moist Expanded ENT Exam Nose exam: Present sinus tenderness Respiratory Respiratory exam: Present normal lung sounds bilaterally; Absent respiratory distress or wheezes Cardiovascular Cardiovascular exam: Present regular rate, normal rhythm and normal heart sounds Neurological Exam Neurological exam: Present alert, oriented X3 and normal gait Medical Decision Making Medical Records Screening: Per USPSTF and CDC recommendations, given the prevalence of disease in our region, it is our hospital?s policy to screen for HIV and viral Hepatitis for all patients aged 18 and over and those with ongoing risk factors. Lance Inquiry Pt receiving controlled substance: No Lance was queried for this patient: No Vital Signs: 09/07/24 13:10 Temperature 97.9 F Temperature Source Oral Pulse Rate [Left Brachial] 85 Respiratory Rate 20 Blood Pressure [Left Arm] 162/91 H Blood Pressure Mean [Left Arm] 114 Blood Pressure Source [Left Arm] Automatic Cuff Blood Pressure Position [Left Arm] Sitting 02 Sat by Pulse Oximetry 97 Oxygen Delivery Method Room Air Medical Decision Narrative: Patient state that she has taken azithromycin and medrol in the past without complications or reactions
[2024-09-07 13:49] VITALS: BP 162/91; PULSE 85; RESP 20; TEMP 36.6; O2SAT 97
== END 2024-09-07 13:51 | disposition home or self-care (01) ==
PROVIDERS: Emergency Provider Nurse Practitioner; PCP Student in an Organized Health Care Education/Training Program
DX: J40 Bronchitis, not specified as acute or chronic (principal)
CPT/HCPCS: 99213; G0381

== ENCOUNTER 2025-02-18 10:11 | Outpatient (CLI) | payer OTHER, SELFPAY ==
--- NOTE | 2025-02-18 10:30 | US_ITS ---
FINAL REPORT CLINICAL HISTORY: pain COMPARISON: None FINDINGS: Limited sonographic images were obtained of the soft tissues in the upper neck, targeting the salivary glands. There is a normal appearance of the bilateral parotid and submandibular glands. Borderline enlarged right submandibular adenopathy measures 15 x 8 mm. There is a normal size left submandibular lymph node noted. IMPRESSION: No enlarged lymph node or salivary gland mass. Reviewed, Interpreted and Dictated by Nasir Dacosta MD Transcribed by Elizabeth Hinojosa Authenticated and [facility]
== END 2025-02-18 23:59 | disposition home or self-care (01) ==
LOC: RAD 10:12
PROVIDERS: PCP Student in an Organized Health Care Education/Training Program; Visit Provider Nurse Practitioner Family
DX: T14.8XXA Other injury of unspecified body region, initial encounter (principal); M54.2 Cervicalgia
CPT/HCPCS: 76536

== ENCOUNTER 2025-04-06 11:55 | Outpatient (CLI) | payer OTHER, SELFPAY ==
[2025-04-06 12:28] LABS: Basophils # 0.1 K/mm3 (0-0.2); Basophils % 0.7 % (0.1-2.0); Eosinophils # 0.1 Kmm3 (0.0-0.4); Hematocrit 49.8 % (37.0-47.0); Hemoglobin 16.4 g/dL (12.2-16.2); Immature Granulocytes # 0.06 10^3uL; Immature Granulocytes % 0.7 %; Lymphocytes # 2.2 K/mm3 (0.7-4.5); Lymphocytes % 24.2 % (10-50); Mean Corpuscular HGB Conc 32.9 g/dL (31.8-35.4); Mean Corpuscular Hemoglobin 30.2 pg (27.0-31.2); Mean Corpuscular Volume 91.7 fl (81-99); Mean Platelet Volume 10.1 fl (7.4-10.4); Monocytes # 0.6 K/mm3 (0.1-1.0); Monocytes % 6.4 % (1.7-9.3); Neutrophils # 6.1 K/mm3 (1.8-7.8); Nucleated Red Blood Cells # 0 10^3/uL; Nucleated Red Blood Cells % 0 %; Platelet Count 349 K/mm3 (142-424); Red Blood Count 5.43 M/mm3 (4.20-5.40); Red Cell Distribution Width 12.9 % (11.5-17.5); Red Cell Distribution Width-SD 43.3 fL; White Blood Count 9.1 K/mm3 (4.8-10.8)
[2025-04-06 13:30] LABS: Alanine Aminotransferase 49 U/L (12-78); Albumin Level 4.3 g/dl (3.5-5.0); Alkaline Phosphatase 70 U/L (38-126); Anion Gap 11.8 mEq/L (5-15); Aspartate Amino Transferase 37 U/L (14-36); Bilirubin,Direct 0.1 mg/dl (0.0-0.4); Bilirubin,Indirect 0.9 mg/dL (0.0-0.9); Bilirubin,Unconjugated 0.9 mg/dL (0.0-1.1); Blood Urea Nitrogen 11 mg/dl (7-17); Calcium 10.1 mg/dl (8.4-10.2); Carbon Dioxide 27 mmol/L (22.0-30.0); Chloride 105 mmol/L (98-107); Chol/HDL Ratio 4.4 (1-3.5); Cholesterol 180 mg/dl (140-200); Estimated Glomerular Filt Rate 66 ml/min (>60); GFR (African American) 80 ML/MIN (>60); Glucose 132 mg/dl (74-100); HDL Cholesterol 41 mg/dl (40-60); Magnesium 2.3 mg/dl (1.6-2.3); Potassium 4.8 mmoL/L (3.5-5.1); Sodium 139 mmol/L (136-145); Total Protein,Serum 6.6 g/dl (6.3-8.2); Triglycerides 192 mg/dl (30-150); VLDL Cholesterol 38 mg/dL (0-40)
[2025-04-06 13:40] LABS: Direct LDL Cholesterol 120.75 mg/dL (100-129)
[2025-04-06 13:45] LABS: Free T4 (Free Thyroxine) 0.99 ng/dl (0.78-2.19)
[2025-04-06 14:00] LABS: Thyroid Stimulating Hormone 2.16 uIU/mL (0.465-4.68)
== END 2025-04-06 23:59 | disposition home or self-care (01) ==
LOC: LAB 11:56
PROVIDERS: Visit Provider Nurse Practitioner Family
DX: I11.9 Hypertensive heart disease without heart failure (principal); I25.10 Atherosclerotic heart disease of native coronary artery without angina pectoris; E87.6 Hypokalemia; R53.83 Other fatigue; R40.0 Somnolence
CPT/HCPCS: 36415; 80048; 80061; 80076; 83735; 84439; 84443; 85025

== ENCOUNTER 2025-04-26 08:47 | Outpatient (CLI) | payer OTHER, SELFPAY | END 2025-04-26 23:59 | disposition home or self-care (01) | LOC: RT 08:47 | PROVIDERS: PCP Family Medicine; Visit Provider Nurse Practitioner Family | DX: I25.10 Atherosclerotic heart disease of native coronary artery without angina pectoris (principal) ==

== ENCOUNTER 2025-10-05 07:33 | Emergency (ER) | payer OTHER, SELFPAY ==
[2025-10-05] VITALS (7 sets, daily range): BP systolic 138–154; BP diastolic 88–95; PULSE 83–88; RESP 16–18; TEMP 36.6–36.7; O2SAT 95–97; BMI 47.3
--- NOTE | 2025-10-05 07:54 | XR_ITS ---
FINAL REPORT CLINICAL HISTORY: Fall, left wrist pain FINDINGS: LEFT WRIST 2 views of the left wrist were obtained. No oblique view was provided. There is no acute fracture or dislocation on this limited exam. There is degenerative joint disease. Soft tissues are unremarkable. IMPRESSION: Limited exam without acute fracture or dislocation identified. If clinical concern persists, consider CT or MRI for further evaluation. Reviewed, Interpreted and Dictated by Amna Wise MD Transcribed by Manisha Marroquin Authenticated and [facility][1]
--- NOTE | 2025-10-05 07:54 | XR_ITS ---
FINAL REPORT CLINICAL HISTORY: Fall, left shoulder FINDINGS: LEFT SHOULDER 3 views of the left shoulder were obtained. There is no dislocation. There is a nondisplaced fracture of the greater tuberosity which is likely comminuted. There is mild degenerative joint disease. No other fracture is identified. Soft tissues are unremarkable. IMPRESSION: Nondisplaced fracture of the greater tuberosity, likely comminuted. Reviewed, Interpreted and Dictated by mAna Wise MD Transcribed by Manisha Marroquin Authenticated and [facility] [place] [place]
--- NOTE | 2025-10-05 07:54 | XR_ITS ---
FINAL REPORT CLINICAL HISTORY: Fall, left upper arm pain FINDINGS: LEFT HUMERUS 2 views of the left humerus were obtained. There is a nondisplaced fracture of the greater tuberosity. Visualized joint spaces are normally aligned. No other fracture is identified. Soft tissues are unremarkable. IMPRESSION: Nondisplaced fracture of the greater tuberosity. Reviewed, Interpreted and Dictated by Amna Wise MD Transcribed by Manisha Marroquin Authenticated and [facility]
--- NOTE | 2025-10-05 07:55 | HMH.EDGENADL ---
Discharge Plan Disposition Patient Disposition: Home, Self-Care Prescriptions Prescriptions: New hydrocodone-acetaminophen 5-325 mg tablet 1 tab PO Q6H PRN (Reason: pain) Qty: 12 0RF No Action levonorgestrel [Mirena] 20 mcg/24 hr (5 years) intrauterine device 1 insert INTRAUTERI ONCE bumetanide 2 mg tablet 2 mg PO DAILY 90 Days Qty: 90 1RF spironolactone [Aldactone] 25 mg tablet 25 mg PO DAILY Qty: 30 2RF ondansetron 4 mg tablet,disintegrating 4 mg PO Q8H PRN (Reason: nausea and vomiting) Qty: 10 0RF albuterol sulfate 90 mcg/actuation HFA aerosol inhaler 2 inh INHALATION Q6H PRN (Reason: shortness of breath or wheezing) 90 Days Qty: 8.5 3RF nitroglycerin 0.4 mg tablet, sublingual 0.4 mg SUBLINGUAL Q5M PRN (Reason: chest pain) Qty: 20 0RF Rx Instructions: do not exceed 3 doses per episode Farxiga 10 mg tablet 10 mg PO DAILY 90 Days Qty: 90 1RF amlodipine 5 mg tablet 5 mg PO DAILY Qty: 90 1RF aspirin 81 mg tablet,delayed release (DR/EC) 81 mg PO DAILY Qty: 30 8RF atorvastatin 80 mg tablet 80 mg PO DAILY Qty: 90 1RF clopidogrel 75 mg tablet 75 mg PO DAILY Qty: 90 1RF metoprolol succinate 50 mg tablet extended release 24 hr 50 mg PO DAILY 90 Days Qty: 90 1RF omeprazole 40 mg capsule,delayed release(DR/EC) 40 mg PO DAILY Qty: 30 7RF Ozempic 0.25 mg or 0.5 mg (2 mg/3 mL) pen injector 0.25 mg SQ WEEKLY Qty: 3 2RF Rx Instructions: for 4 weeks sacubitril-valsartan [Entresto] 97-103 mg tablet 1 tab PO BID Qty: 180 3RF fluticasone propion-salmeterol [Advair Diskus] 250-50 mcg/dose blister with device 1 inh INHALATION BID montelukast 10 mg tablet 10 mg PO DAILY Referrals Follow up/Referrals: Navid Dowd MD [Primary Care Provider, Medical] - See instructions Lenin Andrews DO [Staff Physician, Orthopedics] - See instructions Activity Restrictions/Add. Instructions Additional Instructions/Restrictions: You are found to have a fracture of the greater tuberosity of your left humerus. I encourage you to remain in the sling until follow-up with orthopedic team. Call them to schedule an appointment. I am prescribing a short course of hydrocodone/Tylenol to help with severe pain. Take this as prescribed. Avoid taking additional Tylenol as there can be toxicity if you take over 4000 mg in a 24-hour period. if you develop any new or worsening symptoms, or if you become concerned for your help for any reason, return to the emergency department for evaluation. Clinical Impressions Clinical Impression: Closed fracture of humerus, greater tuberosity Print Language Print Language: Arabic Discharge ED Provider: Stephen Madrid Adult HPI General Chief complaint: Extremity Injury, Upper Stated complaint: AO Fall left shoulder pain Time Seen by Provider: 10/05/25 07:50 Mode of Arrival: Ambulatory Source of Information: Patient Description of Symptoms (Recalled from ER Triage Doc. by RN): PATIENT PRESENTS TO ED FOR LEFT SHOULDER PAIN S/P SLIP AND FALL THIS MORNING. PT STATES SHE FELL IN HER KITCHEN ONTO HER RIGHT SIDE, BUT IS HURTING ON HER LEFT ARM FROM THE SHOULDER TO THE ELBOW. HOLDING ARM TO HER SIDE ON ED ARRIVAL. History of Present Illness HPI narrative: Dayna Ulloa is a 50-year-old female with a past medical history of COPD, tobacco use, obesity, hypertension, coronary artery disease, GERD, hyperlipidemia, type 2 diabetes who presents to the emergency department for left arm pain after a fall. Patient states that this morning, she was mopping at the floor in her home when she slipped on the water and fell, landing on her right side. She states that she thinks her left shoulder may have hit a cabinet and she jammed it . She has had pain in her left shoulder, left humerus ever since. She denies any head trauma or loss of consciousness. She does state that she takes a blood thinner. Related Data Home Medications ?Medication ?Instructions ?Recorded ?Confirmed levonorgestrel (Mirena) 1 insert intrauterine ONCE 02/03/18 09/19/25 fluticasone 250 mcg-salmeterol 50 1 inh inhalation BID 12/31/22 09/19/25 mcg/dose blistr powdr for inhalation (Advair Diskus) montelukast 10 mg tablet 10 mg PO DAILY 12/31/22 09/19/25 Previous Rx's ?Medication ?Instructions ?Recorded albuterol sulfate 90 mcg/actuation 2 inh inhalation Q6H PRN shortness 11/28/22 aerosol inhaler of breath or wheezing 90 days #8.5 grams nitroglycerin 0.4 mg sublingual 0.4 mg sublingual Q5M PRN chest 09/17/23 tablet pain #20 tabs dapagliflozin propanediol 10 mg 10 mg PO DAILY 90 days #90 tabs 04/20/24 tablet (Farxiga) bumetanide 2 mg tablet 2 mg PO DAILY 90 days #90 tabs 02/10/25 spironolactone 25 mg tablet 25 mg PO DAILY #30 tabs 04/06/25 (Aldactone) amlodipine 5 mg tablet 5 mg PO DAILY #90 tabs 08/02/25 aspirin 81 mg tablet,delayed 81 mg PO DAILY #30 tabs 08/02/25 release atorvastatin 80 mg tablet 80 mg PO DAILY #90 tabs 08/02/25 clopidogrel 75 mg tablet 75 mg PO DAILY #90 tabs 08/02/25 metoprolol succinate 50 mg 50 mg PO DAILY 90 days #90 tabs 08/02/25 tablet,extended release 24 hr omeprazole 40 mg capsule,delayed 40 mg PO DAILY #30 caps 08/02/25 release semaglutide 0.25 mg or 0.5 mg (2 0.25 mg (0.368 mL) SQ WEEKLY #3 mL 08/02/25 mg/3 mL) subcutaneous pen injector ([employer]) sacubitril 97 mg-valsartan 103 mg 1 tab PO BID #180 tabs 08/08/25 tablet (Entresto) ondansetron 4 mg disintegrating 4 mg PO Q8H PRN nausea and 09/19/25 tablet vomiting #10 tabs hydrocodone 5 mg-acetaminophen 325 1 tab PO Q6H PRN pain #12 tabs 10/05/25 mg tablet Allergies Allergy/AdvReac Type Severity Reaction Status Date / Time oxycodone Allergy Unknown I-ITCHING Verified 09/19/25 14:06 Penicillins Allergy Unknown S-ANAPHYLAX Verified 09/19/25 14:06 IS pepper (genus Capsicum) Allergy Unknown I-RASH, Verified 09/19/25 14:06 (From PEPPERS (FOOD/DRUG)) BANANA PEPPERS codeine Allergy Swelling Verified 09/19/25 14:06 of Lip/Tongue/Throat semaglutide (From Ozempic) Allergy Unknown Verified 09/19/25 14:06 allergy reaction bupropion AdvReac sick to Verified 09/19/25 14:06 stomach PFSH PFSH Disclaimer: The information contained in this section may have been updated after the patient was seen, as this information can be updated by other users. Medical History (Updated 10/05/25 @ 09:53 by Stephen Madrid MD) Nausea & vomiting Other forms of dyspnea Neck pain Abnormal stress test DM2 (diabetes mellitus, type 2) Diastolic congestive heart failure Dyspnea Post-op pain Wrist pain, right Angina pectoris Hyperlipidemia Hypertension Influenza A Moderate persistent asthma Family history of asthma Smoking greater than 30 pack years Dyspnea on exertion Tobacco abuse counseling Allergic rhinitis Asthma Pulmonary emphysema Tobacco abuse COPD (chronic obstructive pulmonary disease) Gastroesophageal reflux disease Right arm pain Coronary artery disease Abnormal electrocardiogram [ECG] [EKG] HTN (hypertension) Surgical History History of laparoscopy History of hand surgery History of tubal ligation History of heart artery stent Family History Other COPD (chronic obstructive pulmonary disease) Social History Smoking Status: Current every day smoker tobacco type: cigarettes packs per day: 1 second hand exposure: No alcohol intake: never substance use type: former substance user and crack/cocaine current occupational status: unemployed Travel in the last 8 weeks?: Inside the [place] household members: spouse housing: house current occupational exposures/hazards: No Have you lived/traveled outside US in past 30 days?: No Contact w/someone who lives/traveled outside US past 30 days?: No Exposure to someone with infectious disease in past 14 days?: No Do you have a fever (greater than 100.4 F or 38 C)?: No Have you tested positive for COVID-19?: No Exposed to someone with COVID-19 in past 14 days?: No Do you have a sore throat?: No Do you have a cough?: No Do you have any weakness?: No Do you have any diarrhea?: No Are you experiencing any unusual bleeding?: No Do you have any muscle aches/pain?: No Do you have any abdominal pain?: No Are you experiencing loss of taste or smell?: No Other Medical History Have you received the Flu Vaccine for this season: No Have you received the Pneumonia Vaccine: Yes ROS Obtained: Yes Systems reviewed as appropriate & no additional complaints except as documented Physical Exam General General appearance: alert and in no apparent distress Head Head exam: atraumatic Eye Eye exam: Present normal appearance ENT ENT exam: Present normal external ear exam Neck Neck exam: Present full ROM Chest Chest inspection: Present symmetric chest wall rise Respiratory Respiratory exam: Present normal lung sounds bilaterally; Absent respiratory distress Cardiovascular Cardiovascular exam: Present regular rate and normal rhythm Abdominal Exam Abdominal exam: Present soft; Absent tenderness or guarding Extremities Exam Extremities exam: Present normal inspection Expanded Upper Extremity Exam Left: Comment: Left upper extremity: Tenderness over the anterolateral left shoulder and proximal humerus. Tenderness over the radial aspect of the left wrist. 5 out of 5 strength with wrist flexion and extension. Lumbricals intact. 2+ radial pulse. No deformities or bruising are appreciated. Patient able to abduct and externally rotate the shoulder, however states it is painful to do so. Back Exam Back exam: Present normal inspection Neurological Exam Neurological exam: Present alert and oriented X3 Psychiatric Psychiatric exam: Present normal affect Skin Skin exam: Present warm and dry Medical Decision Making Medical Records Screening: Per USPSTF and CDC recommendations, given the prevalence of disease in our region, it is our hospital?s policy to screen for HIV and viral Hepatitis for all patients aged 18 and over and those with ongoing risk factors. Lance Inquiry Pt receiving controlled substance: Yes Lance was queried for this patient: Yes Risks and benefits of using a controlled substance: were discussed with pt by me Vital Signs: 10/05/25 07:48 10/05/25 07:50 10/05/25 07:50 Temperature 98.0 F 98.0 F Temperature Source Oral Pulse Rate 87 85 Pulse Rate [Right] 85 Respiratory Rate 16 16 Blood Pressure 145/94 H 145/94 H Blood Pressure [Right Arm] 145/94 H Blood Pressure Mean [Right Arm] 111 02 Sat by Pulse Oximetry 96 96 96 Oxygen Delivery Method Room Air 10/05/25 08:00 10/05/25 08:15 10/05/25 08:31 Temperature Temperature Source Pulse Rate 85 88 85 Pulse Rate [Right] Respiratory Rate Blood Pressure 138/95 H 142/90 H 154/88 H Blood Pressure [Right Arm] Blood Pressure Mean [Right Arm] 02 Sat by Pulse Oximetry 96 97 95 Oxygen Delivery Method Room Air Room Air Room Air 10/05/25 09:16 Temperature Temperature Source Pulse Rate 83 Pulse Rate [Right] Respiratory Rate Blood Pressure 150/95 H Blood Pressure [Right Arm] Blood Pressure Mean [Right Arm] 02 Sat by Pulse Oximetry 97 Oxygen Delivery Method Orders (Tests/Meds): ED MEDICATIONS Discontinued Medications Generic Name Dose Route Start Last Admin Trade Name Freq PRN Reason Stop Dose Admin Acetaminophen 1,000 mg 10/05/25 07:54 10/05/25 08:05 Acetaminophen 500mg Tab PO 10/05/25 07:55 1,000 mg ONCE ONE Administration ORDERS Category Date Time Status Humerus XR left [XR humerus LT] Stat Exams 10/05/25 07:54 Completed Shoulder XR left minimum 2 views [XR shoulder LT min 2V Exams 10/05/25 07:54 Completed ] Stat Wrist XR left 2 views [XR wrist LT 2V] Stat Exams 10/05/25 07:54 Completed Medical Decision Narrative: Dayna Ulloa is a 50-year-old female with a past medical history of COPD, tobacco use, obesity, hypertension, coronary artery disease, GERD, hyperlipidemia, type 2 diabetes who presents to the emergency department for left arm pain after a fall. Patient states that this morning, she was mopping at the floor in her home when she slipped on the water and fell, landing on her right side. She states that she thinks her left shoulder may have hit a cabinet and she jammed it . She has had pain in her left shoulder, left humerus ever since. She denies any head trauma or loss of consciousness. She does state that she takes a blood thinner. On arrival, patient is mildly hypertensive with blood pressure 145/94, heart rate within norm limits, afebrile, breathing company in room air with oxygen saturation 96% SpO2. Physical exam, stated above, revealed an overall well-appearing female in no distress. She has no evidence of head trauma. She has tenderness without bruising or deformity at the left shoulder, proximal left humerus and left wrist along the dorsal radial aspect. 5 out of 5 strength with flexion and extension of the wrist. Extension and flexion function intact at the elbow. She is able to abduct and externally rotate the shoulder, however is limited secondary to pain. Lumbricals intact. 2+ radial pulse. 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 Differential diagnosis includes, but is not limited to: Shoulder injury such as fracture or dislocation, AC joint separation, humerus fracture, wrist fracture, soft tissue injury, among others. The most morbid conditions were considered and workup was based on these. Workup in the emergency department included: Left shoulder x-ray, left humerus x-ray, left wrist x-ray. Patient was treated with 1000 mg of oral Tylenol X-ray imaging was interpreted by me personally. No acute fractures or dislocations in the wrist. Patient has a left humeral greater tuberosity fracture but no shoulder dislocation. No AC joint separation. See radiology report for details. On reassessment, patient sleeping comfortably. I do feel the patient is appropriate discharge at this time with sling and orthopedic follow-up. Will prescribe a short course of hydrocodone/Tylenol for pain relief. Patient does state that she has had itchiness and a rash with oxycodone but is not sure if she has taken hydrocodone before. Return precautions were given. All questions were answered. She demonstrated understanding and was in agreement this plan. She was then discharged from the emergency department in stable condition. Critical Care Critical Care Time Critical Care Time: No
[2025-10-05] MEDS: ACETAMINOPHEN 500MG TAB 1000 MG PO (08:05)
== END 2025-10-05 10:12 | disposition home or self-care (01) ==
PROVIDERS: Emergency Provider Student in an Organized Health Care Education/Training Program; PCP Family Medicine
DX: S42.255A Nondisplaced fracture of greater tuberosity of left humerus, initial encounter for closed fracture (principal); F17.210 Nicotine dependence, cigarettes, uncomplicated; I10 Essential (primary) hypertension; E78.5 Hyperlipidemia, unspecified; Z86.79 Personal history of other diseases of the circulatory system; Z95.5 Presence of coronary angioplasty implant and graft; Z79.01 Long term (current) use of anticoagulants; W01.10XA Fall on same level from slipping, tripping and stumbling with subsequent striking against unspecified object, initial encounter
CPT/HCPCS: 73030; 73060; 73100; 99284; 99285

== ENCOUNTER 2025-11-02 19:38 | Emergency (ER) | payer OTHER, SELFPAY ==
[2025-11-02 20:04] VITALS: BP 000/00; PULSE 0; RESP 0; TEMP -17.7; TEMP 0; O2SAT 0; BMI 42.5
--- NOTE | 2025-11-02 20:20 | ED_ITS ---
Discharge Plan Disposition Patient Disposition: Date/Time: 11/02/25 20:00 Clinical Impressions Clinical Impression: Cardiac arrest, Chest pain Discharge ED Provider: Corin Betancourt General Adult HPI General Chief complaint: Cardiac Arrest/CPR Stated complaint: Cardia arrest Time Seen by Provider: 11/02/25 19:38 Mode of Arrival: EMS Source of Information: EMS Description of Symptoms (Recalled from ER Triage Doc. by RN): EMS arrived on scene to a female complaining of upper abd pain and chest pain, upon arrival pt was responsive. Once enroute pt became unresponsive and CPR began at 1918. History of Present Illness HPI narrative: This patient is a 50-year-old female with a past medical history of obesity, COPD, tobacco use, hypertension, CAD status post tenting, GERD, hyperlipidemia, type 2 diabetes presenting to the emergency department for evaluation as a CODE BLUE. According to EMS who provides history, the patient started complaining of chest pain and her midsternal region and epigastric region this evening. She had briefly lost consciousness with family, but had regained consciousness when EMS got on scene. They loaded her up in the ambulance, and they report immediately she coded. They started CPR and ACLS protocols at 191, administering epinephrine per ACLS protocols and route. Supraglottic airway was placed prior to arrival. They note that she had asystole on each pulse check prehospital. Upon arrival, patient remains pulseless and apneic. Family later arrived and confirmed that the patient had started complaining of chest pain earlier and stated that she felt she was going to . They note that it hit rather suddenly this evening, and she had briefly lost consciousness inside. She came back to prior to EMS getting there, but this was short-lived. They do note that she had shoulder surgery a few days ago for fixation of a left humerus fracture. Related Data Home Medications ?Medication ?Instructions ?Recorded ?Confirmed levonorgestrel (Mirena) 1 insert intrauterine ONCE 0 02/03/18 10/26/25 fluticasone 250 mcg-salmeterol 50 1 inh inhalation BID 12/31/22 10/26/25 mcg/dose blistr powdr for inhalation (Advair Diskus) Previous Rx's ?Medication ?Instructions ?Recorded albuterol sulfate 90 mcg/actuation 2 inh inhalation Q6 H PRN shortness 11/28/22 aerosol inhaler of breath or wheezing 90 day s #8.5 grams nitroglycerin 0.4 mg sublingual 0.4 mg sublingual Q5M PRN chest 09/17/23 tablet pain #20 tabs dapagliflozin propanediol 10 mg 10 mg PO DAILY 90 days #90 tabs 04/20/24 tablet (Farxiga) bumetanide 2 mg tablet 2 mg PO DAILY 90 days #90 ta bs 02/10/25 amlodipine 5 mg tablet 5 mg PO DAILY #90 tabs 08/02 aspirin 81 mg tablet,delayed 81 mg PO DAILY #30 tabs 0 08/02/25 release atorvastatin 80 mg tablet 80 mg PO DAILY #90 tabs 07/18 05/11 clopidogrel 75 mg tablet 75 mg PO DAILY #90 tabs 07/18 05/11 omeprazole 40 mg capsule,delayed 40 mg PO DAILY #30 ca ps 08/02/25 release semaglutide 0.25 mg or 0.5 mg (2 0.25 mg (0.368 mL) SQ WEEKLY #3 mL 08/02/25 mg/3 mL) subcutaneous pen injector (Ozempic) sacubitril 97 mg-valsartan 103 mg 1 tab PO BID #180 ta bs 08/08/25 tablet (Entresto) ondansetron 4 mg disintegrating 4 mg PO Q8H PRN nausea and 09/19/25 tablet vomiting #10 tabs metoprolol succinate 100 mg 100 mg PO DAILY 90 days #9 0 tabs 10/26/25 tablet,extended release 24 hr Allergies Allergy/AdvReac Type Severity Reaction Status Date / Time oxycodone Allergy Unknown I-ITCHING Verified 10/26/25 14:29 Penicillins Allergy Unknown S-ANAPHYLAX Verified 10/26/25 14:29 IS pepper (genus Capsicum) Allergy Unknown I-RASH, Verified 10/26/25 14:29 (From PEPPERS (FOOD/DRUG)) BANANA PEPPERS codeine Allergy Swelling Verified 10/26/25 14:29 of Lip/Tongue/Throat semaglutide (From Ozempic) Allergy Unknown Verified 10/26/25 14:29 allergy reaction bupropion AdvReac sick to Verified 10/26/25 14:29 stomach PFSH PFSH Disclaimer: The information contained in this section may have been updated after the patient was seen, as this information can be updated by other users. Medical History Preop cardiovascular exam Nausea & vomiting Other forms of dyspnea Neck pain Abnormal stress test DM2 (diabetes mellitus, type 2) Diastolic congestive heart failure Dyspnea Post-op pain Wrist pain, right Angina pectoris Hyperlipidemia Hypertension Influenza A Moderate persistent asthma Family history of asthma Smoking greater than 30 pack years Dyspnea on exertion Tobacco abuse counseling Allergic rhinitis Asthma Pulmonary emphysema Tobacco abuse COPD (chronic obstructive pulmonary disease) Gastroesophageal reflux disease Right arm pain Coronary artery disease Abnormal electrocardiogram [ECG] [EKG] HTN (hypertension) Surgical History History of laparoscopy History of hand surgery History of tubal ligation History of heart artery stent Family History Other COPD (chronic obstructive pulmonary disease) Social History Smoking Status: Unknown if ever smoked second hand exposure: No alcohol intake: never substance use type: former substance user and crack/cocaine current occupational status: unemployed Travel in the last 8 weeks?: Inside the [place] household members: spouse housing: house current occupational exposures/hazards: No Have you lived/traveled outside US in past 30 days?: No Contact w/someone who lives/traveled outside US past 30 days?: No Exposure to someone with infectious disease in past 14 days?: No Do you have a fever (greater than 100.4 F or 38 C)?: No Have you tested positive for COVID-19?: No Exposed to someone with COVID-19 in past 14 days?: No Do you have a sore throat?: No Do you have a cough?: No Do you have any weakness?: No Do you have any diarrhea?: No Are you experiencing any unusual bleeding?: No Do you have any muscle aches/pain?: No Do you have any abdominal pain?: No Are you experiencing loss of taste or smell?: No Other Medical History Have you received the Flu Vaccine for this season: No Have you received the Pneumonia Vaccine: Yes ROS Obtained: Yes unobtainable due to mental status Physical Exam General General appearance: in distress and obese Comment: CPR in progress with manual chest compressions, supraglottic airway in place Head Head exam: atraumatic and normocephalic Eye Eye exam: Present other (Pupils fixed) Respiratory Respiratory exam: Present other (No spontaneous respirations, bag ventilations through supraglottic airway) Cardiovascular Cardiovascular exam: Present other (Pulseless, asystole noted on initial pulse check) Abdominal Exam Abdominal exam: Present soft; Absent distention Extremities Exam Extremities exam: Present other (Bruising to left upper extremity in setting of recent shoulder surgery) Neurological Exam Neurological exam: Present other (GCS 3, no reflexes) Skin Skin exam: Present mottled and other (Pale, mottled, cyanotic) Medical Decision Making Medical Records Screening: Per USPSTF and CDC recommendations, given the prevalence of disease in our region, it is our hospital?s policy to screen for HIV and viral Hepatitis for all patients aged 18 and over and those with ongoing risk factors. Lance Inquiry Pt receiving controlled substance: No Vital Signs: 11/02/25 20:04 11/02/25 22:47 Temperature 0 F L 0 F L Temperature Source Temporal Artery Scan Pulse Rate 0 L Pulse Rate [Right] 0 L Respiratory Rate 0 L 0 L Blood Pressure 000/00 L Blood Pressure [Right Arm] 000/00 L 02 Sat by Pulse Oximetry 0 L Medical Decision Narrative: In summary, this patient is a 50-year-old female presenting to the Emergency Department for evaluation of CODE BLUE. She had complained of chest pain prior to cardiac arrest. Differential diagnoses considered include but are not limited to PE, ACS, MA, aortic dissection, CVA, cardiac or rupture. Ruling out the most morbid conditions drove assessment. It should be noted patient's history includes obesity, CAD, CHF, hypertension, diabetes, tobacco dependence, COPD which may or may not be at goal therapy. This complicates all aspects of care by increasing patient's risk for morbidity. I reviewed patient's past medical records and noted prior evaluations by cardiology for maintenance of health as well as recent ED evaluation in September for fall with humerus fracture. Patient has history of stenting to proximal LAD March 2024 and severely elevated left-ventricular end-diastolic pressure.. Patient arrives pulseless, apneic, mottled and pale with CPR in progress. CPR was continued per ACLS protocols with epinephrine administered per ACLS protocols upon arrival. She was placed on our monitor. Her supraglottic airway was exchanged for an ET tube by myself. Placement confirmed with direct visualization, auscultation, end-tidal CO2, color change. Despite multiple rounds of ACLS and epinephrine administered per ACLS protocol, patient continued to be pulseless with asystole noted on all subsequent pulse checks. Attempted to administer TNK in case this could be PE in the setting of recent surgery versus acute MA. With prolonged downtime of 40 minutes with asystole noted on multiple pulse checks and cardiac standstill noted on bedside cardiac ultrasound, it was felt that further resuscitation efforts would be futile. Given this, time of was called at 8 PM. Family was present here in the emergency department and was notified. Procedures Intubation sedative: none Laryngoscope: Greg (3) Assist Device Used: other (video assisted (glidescope)) ET Tube Size: 7.5 ET Tube Uncuffed: No Tube Secured Depth (cm): 22 Tube Secured Location: lips Tube Placement Confirmation: visualized tube passing through cords, equal breath sounds bilaterally, no breath sounds over epigastrium and confirmation by capnometry Patient Tolerated Procedure: other (tolerated fine, CPR continued) Intubation Complications: none Additional Comments: CPR in progress Critical Care Critical Care Time Critical Care Time: No
--- NOTE | 2025-11-02 20:23 | PC.NURSE ---
[facility] notified of Pt's demise. Case # [id number] Stacy contact at [facility]
--- NOTE | 2025-11-02 20:25 | PC.NURSE ---
Code Note: 1937- EMS arrival 1939-Auto Pulse applied 1941- 1st epi given, Pulse check, asystole: CPR resumed 1943- 7.5 ET tube placed by MD Soumya. 22 @ lip and + color change noted. 1944-Pulse Check, Asystole, CPR resumed. 2nd Epi given 1946- Pulse Check, asystole, CPR resumed 1947- 3rd epi given 1948-Pulse check, asystole, CPR resumed 1950- Pulse check, asystole, CPR resumed 4th epi given 1952- Pulse Check, CPR resumed 1955- TNK given, 5th Epi given 1956- pulse check, asystle, CPR resumed 1958-Pulse check, asysole TOD called @1999 Silvering Applicator called @2008 Skip called @2014 Corner arrived @2037
--- NOTE | 2025-11-02 20:42 | PC.NURSE ---
EMS reported pt became unresponsive and CPR began at 1918. 1 epi given and 300mg of amniodarone given rishi @192
--- NOTE | 2025-11-02 20:56 | PC.NURSE ---
bench worker binding cleared case @2565
--- NOTE | 2025-11-02 22:40 | PC.NURSE ---
Home here Body released
[2025-11-02 22:47] VITALS: BP 000/00; PULSE 0; RESP 0; TEMP -17.7; TEMP 0; O2SAT 0
--- NOTE | 2025-11-04 03:05 | EXP.DEATH.NO ---
Pronouncement Note Date and Time of Date of : 11/03/25 Time of : 20:00 PCOD Preliminary cause of : Cardiac arrest Contributing Factors (1) Chest pain: Additional Data Confirmation of : no pulse, no respirations, no heart sounds and pupils fixed and dilated Family: at bedside Was code activated?: Yes Autopsy should be considered if:: Unknown or unanticipated medical complications Cause is not known with certainty on clinical grounds Would allay concerns of the public/family regarding Unexplained/unexpected apparently natural and not subject to a forensic medical jurisdiction DOA Within 24 hours of admission Sustained or apparently sustained injury while in the hospital Result of high risk, infectious and contagious disease Obstetric and pediatric arising from environmental or occupational hazard Unexplained/unexpected from dental, medical, or surgical diagnostic procedures and/or therapies Would disclose a known or suspected illness which also may have a bearing on survivors or recipients of transplanted organs Autopsy requested?: No Does not meet criteria questioned documents examiner notified?: Yes Organ bank notified?: Yes Advance directives: No
== END 2025-11-02 22:49 | disposition expired ==
PROVIDERS: Emergency Provider Emergency Medicine; PCP Student in an Organized Health Care Education/Training Program
DX: I46.9 Cardiac arrest, cause unspecified (principal); R07.9 Chest pain, unspecified
CPT/HCPCS: 31500; 92950; 99285; J0169; J3101